=== PATIENT | male | born 1965 | race Caucasian/White ===

== ENCOUNTER 2019-11-02 14:33 | Inpatient (IN) | payer BC ==
[2019-11-02] MEDS ORDERED: Ondansetron 4 MG/2 ML SDV IVPUSH ONE (15:17)
[2019-11-02] MEDS ORDERED: Sodium Chloride 0.9% 10 ML Syringe FLUSH PRN (15:17)
--- NOTE | 2019-11-02 15:29 | EDM.PDOC ---
ED HPI GENERAL MEDICAL PROBLEM - General Chief Complaint: Drug or Alcohol Abuse Stated Complaint: ALCOHOLIC ISSUES Time Seen by Provider: 11/02/19 14:37 Source of Information: Reports: Patient, Family History Limitations: Reports: No Limitations - History of Present Illness INITIAL COMMENTS - FREE TEXT/NARRATIVE: Patient is a 54-year-old male who presents to the emergency department with his with some altered mental status and staggering gait. states this began yesterday. reports patient has a history of alcohol abuse, however she is unsure the extent of it as he hides his drinking. She is found empty 1.25 L bottles of vodka on numerous occasions. She knows with certainty that he drinks Thursday and Thursday. She states that this has been Becoming a worsening problem since April. states he has not gone to work all week, and this is happened on a number of other occasions. He currently works for [employer].. In June he went through an episode where he quit drinking and did have withdrawal symptoms including shaking and diaphoresis. states that her and her daughters have been trying to keep a close eye on him. She states that she "rigged the laundry room" because he uses that door to go out to the garage and she thinks that is probably where he has been drinking. She states he has hiding spots for his alcohol but she does not know where there are. She states that he does not want his mom to find out about his drinking because his dad of alcoholism his grandfather was also a chronic alcoholic. History from the patient is somewhat limited. He was asked if he would like his to leave the room while we visited which he stated he did, however after she left the room, he did not provide much information. When asked how often he drinks he says "I do not know ". He tells me his last drink was Thursday night, however his states that he did drink on Thursday also. When asked if he needs help with his drinking he says no. When asked how he is feeling today he states "horrible ". He does not offer any input as to what he means by that. When asked if he has a headache he says yes he also agrees that he is nauseous. He does not feel confused, denies any visual disturbances, denies auditory hallucinations. When asked if he knows what the day of the week is, he states yes, however he is unable to provide the day of the week. He did agree to have a work-up done. - Related Data Allergies Allergy/AdvReac Type Severity Reaction Status Date / Time No Known Allergies Allergy Verified 11/02/19 14:51 Home Meds: Home Meds Hydrochlorothiazide/Lisinopril [Lisinopril/HCTZ 20-12.5 MG] 1 tab PO DAILY 11/02/19 [History] Metoprolol Succinate [Toprol XL 50mg] 50 mg PO DAILY 11/02/19 [History] Omeprazole 1 tab PO DAILY 11/02/19 [History] Sertraline [Zoloft] 50 mg PO DAILY 11/02/19 [History] Simvastatin 40 mg PO DAILY 11/02/19 [History] Past Medical History HEENT History: Reports: Impaired Vision Cardiovascular History: Reports: High Cholesterol, Hypertension Psychiatric History: Reports: Addiction, Depression - Past Surgical History GI Surgical History: Reports: Appendectomy ED ROS GENERAL - Review of Systems Review Of Systems: See Below Constitutional: Reports: No Symptoms. Denies: Fever, Chills HEENT: Reports: No Symptoms Respiratory: Reports: No Symptoms. Denies: Shortness of Breath, Cough Cardiovascular: Reports: No Symptoms. Denies: Chest Pain, Syncope Endocrine: Reports: No Symptoms GI/Abdominal: Reports: Nausea. Denies: Abdominal Pain, Diarrhea, Vomiting : Reports: No Symptoms Musculoskeletal: Reports: No Symptoms Skin: Reports: No Symptoms Neurological: Reports: Confusion, Headache, Gait Disturbance. Denies: Dizziness Psychiatric: Reports: Confusion, Depression. Denies: Agitation, Hallucinations, Suicidal Ideation Hematologic/Lymphatic: Reports: No Symptoms Immunologic: Reports: No Symptoms - Physical Exam Exam: See Below Exam Limited By: No Limitations General Appearance: Alert, WD/WN, No Apparent Distress Eye Exam: Bilateral Eye: PERRL Respiratory/Chest: No Respiratory Distress, Lungs Clear, Normal Breath Sounds, No Accessory Muscle Use, Chest Non-Tender Cardiovascular: Normal Peripheral Pulses, Regular Rate, Rhythm, No Edema, No Gallop, No JVD, No Murmur, No Rub GI/Abdominal: Normal Bowel Sounds, Soft, Non-Tender, No Organomegaly, No Distention, No Abnormal Bruit, No Mass Neuro Exam (Abbreviated): Alert, CN II-XII Intact, Normal Cognition, Normal Gait, Normal Reflexes, No Motor/Sensory Deficits, Confused, Disoriented (To time) Psychiatric: Flat Affect Skin Exam: Warm, Dry, Intact, Normal Color, No Rash EKG INTERPRETATION EKG Date: 11/02/19 Time: 15:37 Rhythm: NSR Rate (Beats/Min): 76 Diagonal: LAD-Left Diagonal Deviation P-Wave: Present QRS: Normal ST-T: Normal QT: Normal EKG Interpretation Comments: Sinus rhythm at 76/min Left axis deviation Early R wave transition -consider right ventricular hypertrophy/septal hypertrophy Q waves in lead III and aVF-old inferior wall RI EKG interpreted by Dr. Julieth MAY Course - Vital Signs Last Recorded V/S: Last Vital Signs Temp 98.5 F 11/02/19 18:50 Pulse 79 11/02/19 14:45 Resp 20 11/02/19 18:50 BP 156/81 H 11/02/19 18:50 Pulse Ox 97 11/02/19 18:50 - Orders/Labs/Meds Orders: Active Orders 24 hr Category Date Time Status Sodium Chloride 0.9% [Normal Saline] 1,000 ml Med 11/02/19 15:30 Active IV ASDIRECTED Sodium Chloride 0.9% [Normal Saline] 1,000 ml Med 11/02/19 16:30 Active IV ASDIRECTED Sodium Chloride 0.9% [Saline Flush] Med 11/02/19 15:17 Active 10 ml FLUSH ASDIRECTED PRN Peripheral IV Insertion Adult [OM.PC] Stat Oth 11/02/19 15:16 Ordered Medication Orders Albuterol/Ipratropium (Duoneb 3.0-0.5 Mg/3 Ml) 3 ml NEB Q4H PRN PRN Reason: Shortness Of Breath/wheezing Bisacodyl (Dulcolax) 5 mg PO DAILY PRN PRN Reason: Constipation Clonidine HCl (Catapres) 0.1 mg PO Q4H PRN PRN Reason: Agitation Docusate Sodium (Colace) 100 mg PO BID PRN PRN Reason: Constipation Folic Acid (Folic Acid) 1 mg PO BEDTIME [facility] Last Admin: 11/02/19 20:21 Dose: 1 mg Documented by: [id number] Haloperidol Lactate (Haldol) 2 mg IM Q4H PRN PRN Reason: Agitation Sodium Chloride (Normal Saline) 1,000 mls @ 999 mls/hr IV ASDIRECTED [facility] Last Admin: 11/02/19 15:29 Dose: 999 mls/hr Documented by: HERMMIC Sodium Chloride (Normal Saline) 1,000 mls @ 999 mls/hr IV ASDIRECTED [facility] Last Admin: 11/02/19 17:29 Dose: 999 mls/hr Documented by: HERMMIC Promethazine HCl 12.5 mg/ (Sodium Chloride) 50.5 mls @ 100 mls/hr IV Q6H PRN PRN Reason: Nausea/Vomiting Last Admin: 11/02/19 20:30 Dose: 100 mls/hr Documented by: DWAIN Metoprolol Succinate (Toprol Xl) 50 mg PO DAILY [facility] Metoprolol Tartrate (Lopressor) 5 mg IVPUSH Q4H PRN PRN Reason: Tachycardia Multivitamins (Thera) 1 each PO BEDTIME [facility] Last Admin: 11/02/19 20:21 Dose: 1 each Documented by: DWAIN Ondansetron HCl (Zofran) 4 mg IV Q6H PRN PRN Reason: Nausea/Vomiting Pantoprazole Sodium (Protonix) 40 mg PO DAILY [facility] Quetiapine Fumarate (Seroquel) 50 mg PO BEDTIME [facility] Last Admin: 11/02/19 20:21 Dose: 50 mg Documented by: DWAIN Senna/Docusate Sodium (Senna Plus) 1 tab PO BID PRN PRN Reason: Constipation Sodium Chloride (Saline Flush) 10 ml FLUSH ASDIRECTED PRN PRN Reason: Keep Vein Open Last Admin: 11/02/19 15:31 Dose: 10 ml Documented by: LAVERNE Thiamine HCl (Vitamin B-1) 100 mg PO BEDTIME [facility] Last Admin: 11/02/19 20:21 Dose: 100 mg Documented by: DWAIN Topiramate (Topamax) 25 mg PO BID [facility] Last Admin: 11/02/19 20:21 Dose: 25 mg Documented by: DWAIN Labs: Laboratory Tests 11/02/19 11/02/19 11/02/19 Range/Units 14:40 14:48 14:48 WBC 11.80 H (4.23-9.07) K/mm3 RBC 5.76 (4.63-6.08) M/mm3 Hgb 16.2 (13.7-17.5) gm/dl Hct 47.0 (40.1-51.0) % MCV 81.6 (79.0-92.2) fl MCH 28.1 (25.7-32.2) pg MCHC 34.5 (32.2-35.5) g/dl RDW Std Deviation 41.0 (35.1-43.9) fL Plt Count 493 H (163-337) K/mm3 MPV 8.1 L (9.4-12.3) fl Neut % (Auto) 78.6 H (34.0-67.9) % Lymph % (Auto) 17.0 L (21.8-53.1) % [place] % (Auto) 4.1 L (5.3-12.2) % Eos % (Auto) 0 L (0.8-7.0) Baso % (Auto) 0.1 (0.1-1.2) % Neut # (Auto) 9.28 H (1.78-5.38) K/mm3 Lymph # (Auto) 2.01 (1.32-3.57) K/mm3 [place] # (Auto) 0.48 (0.30-0.82) K/mm3 Eos # (Auto) 0.00 L (0.04-0.54) K/mm3 Baso # (Auto) 0.01 (0.01-0.08) K/mm3 Sodium 133 L (136-145) mEq/L Potassium 4.2 (3.5-5.1) mEq/L Chloride 98 (98-107) mEq/L Carbon Dioxide 19 L (21-32) mEq/L Anion Gap 20.2 H (5-15) BUN 49 H (7-18) mg/dL Creatinine 2.6 H (0.7-1.3) mg/dL Est Cr Clr Drug Dosing 31.42 mL/min Estimated GFR (MDRD) 26 (>60) mL/min BUN/Creatinine Ratio 18.8 H (14-18) Glucose 172 H (74-106) mg/dL Calcium 8.8 (8.5-10.1) mg/dL Magnesium 2.4 (1.8-2.4) mg/dl Total Bilirubin 0.6 (0.2-1.0) mg/dL AST 48 H (15-37) U/L ALT 77 H (16-63) U/L Alkaline Phosphatase 98 (46-116) U/L Creatine Kinase (39-308) U/L Troponin I < 0.017 (0.00-0.056) ng/mL C-Reactive Protein < 0.2 (<1.0) mg/dL Total Protein 8.4 H (6.4-8.2) g/dl Albumin 4.1 (3.4-5.0) g/dl Globulin 4.3 gm/dL Albumin/Globulin Ratio 1.0 (1-2) Ethyl Alcohol 0.00 (0.00) gm% COVID-19 ([facility]) (NEGATIVE) 11/02/19 11/02/19 Range/Units 14:48 17:02 WBC (4.23-9.07) K/mm3 RBC (4.63-6.08) M/mm3 Hgb (13.7-17.5) gm/dl Hct (40.1-51.0) % MCV (79.0-92.2) fl MCH (25.7-32.2) pg MCHC (32.2-35.5) g/dl RDW Std Deviation (35.1-43.9) fL Plt Count (163-337) K/mm3 MPV (9.4-12.3) fl Neut % (Auto) (34.0-67.9) % Lymph % (Auto) (21.8-53.1) % [place] % (Auto) (5.3-12.2) % Eos % (Auto) (0.8-7.0) Baso % (Auto) (0.1-1.2) % Neut # (Auto) (1.78-5.38) K/mm3 Lymph # (Auto) (1.32-3.57) K/mm3 [place] # (Auto) (0.30-0.82) K/mm3 Eos # (Auto) (0.04-0.54) K/mm3 Baso # (Auto) (0.01-0.08) K/mm3 Sodium (136-145) mEq/L Potassium (3.5-5.1) mEq/L Chloride (98-107) mEq/L Carbon Dioxide (21-32) mEq/L Anion Gap (5-15) BUN (7-18) mg/dL Creatinine (0.7-1.3) mg/dL Est Cr Clr Drug Dosing mL/min Estimated GFR (MDRD) (>60) mL/min BUN/Creatinine Ratio (14-18) Glucose (74-106) mg/dL Calcium (8.5-10.1) mg/dL Magnesium (1.8-2.4) mg/dl Total Bilirubin (0.2-1.0) mg/dL AST (15-37) U/L ALT (16-63) U/L Alkaline Phosphatase (46-116) U/L Creatine Kinase 229 (39-308) U/L Troponin I (0.00-0.056) ng/mL C-Reactive Protein (<1.0) mg/dL Total Protein (6.4-8.2) g/dl Albumin (3.4-5.0) g/dl Globulin gm/dL Albumin/Globulin Ratio (1-2) Ethyl Alcohol (0.00) gm% COVID-19 ([facility]) Negative (NEGATIVE) Meds: Medications Generic Name Dose Route Start Last Admin Trade Name Freq PRN Reason Stop Dose Admin Albuterol/Ipratropium 3 ml 11/02/19 18:50 Duoneb 3.0-0.5 Mg/3 Ml NEB Q4H PRN Shortness Of Breath/wheezing Bisacodyl 5 mg 11/02/19 18:50 Dulcolax PO DAILY PRN Constipation Clonidine HCl 0.1 mg 11/02/19 19:02 Catapres PO Q4H PRN Agitation Docusate Sodium 100 mg 11/02/19 18:50 Colace PO BID PRN Constipation Folic Acid 1 mg 11/02/19 21:00 11/02/19 20:21 Folic Acid PO 1 mg BEDTIME FELICITA Administration Haloperidol Lactate 2 mg 11/02/19 19:02 Haldol IM Q4H PRN Agitation Sodium Chloride 1,000 mls @ 999 mls/hr 11/02/19 15:30 11/02/19 15:29 Normal Saline IV 999 mls/hr ASDIRECTED FELICITA Administration Sodium Chloride 1,000 mls @ 999 mls/hr 11/02/19 16:30 11/02/19 17:29 Normal Saline IV 999 mls/hr ASDIRECTED FELICITA Administration Promethazine HCl 12.5 mg/ 50.5 mls @ 100 mls/hr 11/02/19 18:50 11/02/19 20:30 Sodium Chloride IV 100 mls/hr Q6H PRN Administration Nausea/Vomiting Metoprolol Succinate 50 mg 11/03/19 09:00 Toprol Xl PO DAILY FELIC[facility] Metoprolol Tartrate 5 mg 11/02/19 19:03 Lopressor IVPUSH Q4H PRN Tachycardia Multivitamins 1 each 11/02/19 21:00 11/02/19 20:21 Thera PO 1 each BEDTIME [facility] Administration Ondansetron HCl 4 mg 11/02/19 18:50 Zofran IV Q6H PRN Nausea/Vomiting Pantoprazole Sodium 40 mg 11/03/19 09:00 Protonix PO DAILY F[facility] Quetiapine Fumarate 50 mg 11/02/19 21:00 11/02/19 20:21 Seroquel PO 50 mg BEDTIME [facility] Administration Senna/Docusate Sodium 1 tab 11/02/19 18:50 Senna Plus PO BID PRN Constipation Sodium Chloride 10 ml 11/02/19 15:17 11/02/19 15:31 Saline Flush FLUSH 10 ml ASDIRECTED PRN Administration Keep Vein Open Thiamine HCl 100 mg 11/02/19 21:00 11/02/19 20:21 Vitamin B-1 PO 100 mg BEDTIME F[facility]IC[facility] Administration Topiramate 25 mg 11/02/19 21:00 11/02/19 20:21 Topamax PO 25 mg BID FELIC[facility] Administration Discontinued Medications Generic Name Dose Route Start Last Admin Trade Name Freq PRN Reason Stop Dose Admin Diphenhydramine HCl 25 mg 11/02/19 19:01 11/02/19 20:22 Benadryl IVPUSH 11/02/19 19:02 25 mg ONETIME ONE Administration Ondansetron HCl 4 mg 11/02/19 15:17 11/02/19 15:29 Zofran IVPUSH 11/02/19 15:18 4 mg ONETIME ONE Administration - Re-Assessments/Exams Free Text/Narrative Re-Assessment/Exam: Patient is a 54-year-old male brought in by his with complaints of altered mental status and unsteady gait. Patient does not offer much information, and is unsure of how much he drinks as he hides his drinking. He could be suffering from alcohol withdrawal, however it is difficult to determine this based on his uncertain history of alcohol abuse. Neurologic exam is essentially normal, with the exception of his confusion. Grasps are equal and strong. Pupils are equal and reactive. I have ordered a CBC, CMP, CRP, troponin, EKG, EtOH, urinalysis, drug screen, and CT scan of the head. We will give him a liter of IV fluids, as well as Zofran for nausea. 11/02/19 16:11 Hematology was significant for WBC slightly elevated 11.8, platelets elevated at 493, sodium slightly low at 133, CO2 low at 19, anion gap elevated at 20.2, BUN elevated 49, creatinine elevated at 2.6, glucose elevated at 172, troponin is negative, CRP is normal, blood alcohol is 0, CT scan of the head was negative for any acute findings. Based on patient's new onset confusion and difficulty with gait, we could be dealing with alcohol withdrawal, however I have ordered an MRI of the brain to rule out stroke. Discussed this with the patient and his and they are in agreement with this plan. I will order a second liter of NS bolus as he is quite dry. Urinalysis and drug screen pending. 11/02/19 17:51 MRI results were negative for any acute abnormalities. Patient has yet to produce a urine sample. I did call and speak with the hospitalist on-call, Dr. Reaves. He has accepted the patient for admission to the ICU for confusion and acute renal failure. Departure - Departure Time of Disposition: 17:51 Disposition: Admitted As Inpatient 66 Condition: Good Clinical Impression: Altered mental state Qualifiers: Altered mental status type: disorientation Qualified Code(s): R41.0 - Disorientation, unspecified Acute renal failure (ARF) Qualifiers: Acute renal failure type: unspecified Qualified Code(s): N17.9 - Acute kidney failure, unspecified - Discharge Information Sepsis Event Note (ED) - Evaluation Sepsis Screening Result: No Definite Risk - Focused Exam Vital Signs: Vital Signs Temp Pulse Resp BP Pulse Ox 11/02/19 14:45 96.0 F L 79 16 121/82 94 L - My Orders Last 24 Hours: My Active Orders 11/02/19 15:16 Peripheral IV Insertion Adult [OM.PC] Stat 11/02/19 15:17 Sodium Chloride 0.9% [Saline Flush] 10 ml FLUSH ASDIRECTED PRN 11/02/19 15:30 Sodium Chloride 0.9% [Normal Saline] 1,000 ml IV ASDIRECTED 11/02/19 16:30 Sodium Chloride 0.9% [Normal Saline] 1,000 ml IV ASDIRECTED - Assessment/Plan Last 24 Hours: My Active Orders 11/02/19 15:16 Peripheral IV Insertion Adult [OM.PC] Stat 11/02/19 15:17 Sodium Chloride 0.9% [Saline Flush] 10 ml FLUSH ASDIRECTED PRN 11/02/19 15:30 Sodium Chloride 0.9% [Normal Saline] 1,000 ml IV ASDIRECTED 11/02/19 16:30 Sodium Chloride 0.9% [Normal Saline] 1,000 ml IV ASDIRECTED
[2019-11-02] MEDS ORDERED: Sodium Chloride 0.9% 1,000 ML IV SCH ×2 (15:30→16:30)
--- NOTE | 2019-11-02 15:47 | CT ---
Head CT Technique: Multiple axial sections through the brain were obtained. Intravenous contrast was not utilized. Comparison: No prior intracranial imaging is available. Findings: Ventricles along with basal cisterns and sulci over the convexities are within normal limits for the patient's age. No abnormal parenchymal densities are seen. No evidence of intracranial hemorrhage. No midline shift or mass-effect is seen. Mild atherosclerotic calcification is seen within the carotid siphon and vertebral vessels. Mild mucosal thickening is noted within the sphenoid and ethmoid sinuses. Visualized mastoid sinuses are clear. No acute calvarial abnormality is appreciated. Impression: 1. Mild sinus findings which are most likely chronic. 2. No acute intracranial abnormality is seen. Note: Please correlate if patient's symptoms warrant further evaluation by MRI. Diagnostic code #2 This report was dictated in MDT
--- NOTE | 2019-11-02 17:10 | MR ---
Mri brain Technique: T1 sagittal; T2, T2 FLAIR, T1 and diffusion axial T2 gradient echo axial; T1 and T2 gradient echo coronal images were obtained. Comparison: Prior head CT study of 11/02/19. Findings: Ventricles along with basal cisterns and sulci over the convexities appear within normal limits for the patient's age. Normal signal void is seen within the major cerebral arteries within the skull base. No abnormal signal is seen within the brain parenchyma. No midline shift or mass-effect is seen. No acute diffusion abnormalities are appreciated. Impression: 1. No abnormality is appreciated on MRI study of the brain. There are specifically no acute diffusion abnormalities being seen. Diagnostic code #1 This report was dictated in MDT
--- NOTE | 2019-11-02 17:50 | PCM.HP.2 ---
H&P History of Present Illness - General Date of Service: 11/02/19 Admit Problem/Dx: ETOH Withdrawal Source of Information: Family, Provider, RN Notes Reviewed History Limitations: Reports: Altered Mental Status - History of Present Illness Initial Comments - Free Text/Narative: This is a 54 yo white male with past medical hx/o chronic alcoholism, hypertension, hyperlipidemia, GERD, and depression who was brought in by his due to acute confusion with withdrawal symptoms. His last drink was appar ently last night but according to him it was this past Thursday. He was not very forthcoming with his alcohol abuse. However his thinks he drinks heavily about 1.25 L of vodka a day and hides his drinking from family. His believes his drinking has gotten out of hand since April. He has had etoh withdrawal in the past. Per family, he was tremulous and sweating. This morning he was alert, awake, but confused. He was able to answer yes or no but cannot offer a meaning conversation. No report of visual, tactile or auditory hallucinations. His initial work up in the emergency shows a CBC remarkable for WBC of 11.80, platelet # of 493, Neutrophils of 78.6%, Lymphocyte # of 147% and Monocytes # of 4.1%. His chemistry is significant for sodium of 133, CO2 of 19, AG of 20.2, BUN of 49, Cr of 2.6, BS of 172, AST of 48, ALT of 77 and Total Protein of 8.4. His ETOH and COVID-19 screening are negative. Brain MRI and Head CT scan reports are both negative for acute abnormal findings. Patient is coming in primarily for etoh withdrawal. - Related Data Allergies/Adverse Reactions: Allergies Allergy/AdvReac Type Severity Reaction Status Date / Time No Known Allergies Allergy Verified 11/02/19 23:41 Home Medications: Home Meds Hydrochlorothiazide/Lisinopril [Lisinopril/HCTZ 20-12.5 MG] 1 tab PO DAILY 11/02/19 [History] Metoprolol Succinate [Toprol XL 50mg] 50 mg PO DAILY 11/02/19 [History] Omeprazole 1 tab PO DAILY 11/02/19 [History] Sertraline [Zoloft] 50 mg PO DAILY 11/02/19 [History] Simvastatin 40 mg PO DAILY 11/02/19 [History] Past Medical History HEENT History: Reports: Impaired Vision Cardiovascular History: Reports: High Cholesterol, Hypertension Psychiatric History: Reports: Addiction, Depression - Past Surgical History GI Surgical History: Reports: Appendectomy Social & Family History - Tobacco Use Smoking Status *Q: Never Smoker - Caffeine Use Caffeine Use: Reports: Coffee - Recreational Drug Use Recreational Drug Use: No H&P Review of Systems - Review of Systems: Review Of Systems: See Below General: Denies: Fever, Chills HEENT: Reports: Headaches Pulmonary: Denies: Shortness of Breath, Pleuritic Chest Pain Cardiovascular: Denies: Chest Pain, Palpitations, Dyspnea on Exertion Gastrointestinal: Reports: Nausea. Denies: Abdominal Pain, Constipation, Vomiting Genitourinary: Reports: No Symptoms Musculoskeletal: Reports: No Symptoms Skin: Denies: Diaphoresis, Bruising, Rash Psychiatric: Reports: Confusion. Denies: Anxiety, Agitation, Cravings, Hallucinations, Suicidal Ideation, Homicidal Ideation Neurological: Reports: Gait Disturbance. Denies: Dizziness, Numbness, Paresthesia, Seizure, Syncope, Tingling, Tremors, Trouble Speaking, Weakness, Change in Speech Hematologic/Lymphatic: Reports: No Symptoms Immunologic: Reports: No Symptoms Exam - Exam Exam: See Below - Vital Signs Vital Signs: Last Vital Signs Temp 35.6 C L 11/02/19 14:45 Pulse 79 11/02/19 14:45 Resp 16 11/02/19 14:45 BP 121/82 11/02/19 14:45 Pulse Ox 94 L 11/02/19 14:45 Weight: 95.254 kg - Exam General: Cooperative. No: Moderate Distress HEENT: Conjunctiva Clear, EACs Clear Neck: Supple, Trachea Midline Lungs: Clear to Auscultation, Normal Respiratory Effort Cardiovascular: Regular Rate, Regular Rhythm GI/Abdominal Exam: Normal Bowel Sounds, Soft, Non-Tender, No Organomegaly, No Distention, No Abnormal Bruit (Male) Exam: Deferred Rectal (Males) Exam: Deferred Back Exam: Normal Inspection, Decreased Range of Motion Extremities: Normal Inspection, Normal Range of Motion, Non-Tender, No Pedal Edema, Other (unstable gait) Peripheral Pulses: 1+: Dorsalis Pedis (L), Dorsalis Pedis (R) Skin: Warm, Dry, Intact Neurological: Abnormal Gait Neuro Extensive - Mental Status: Normal Mood/Affect, Opens Eyes to Commands, Slow Response to Commands, Other (able to answer yes or no; he is not able to offer a meaningful conversation). No: Normal Cognition Neuro Extensive - Motor, Sensory, Reflexes: Other (Confused at the present). No: Tremor Psychiatric: No: Anxious, Agitated, Suicidal Ideation, Homicidal Ideation, Hallucinations, Withdrawal Symptoms - Patient Data Lab Results Last 24 hrs: Laboratory Results - last 24 hr 11/02/19 11/02/19 11/02/19 Range/Units 14:48 14:48 14:48 WBC 11.80 H (4.23-9.07) K/mm3 RBC 5.76 (4.63-6.08) M/mm3 Hgb 16.2 (13.7-17.5) gm/dl Hct 47.0 (40.1-51.0) % MCV 81.6 (79.0-92.2) fl MCH 28.1 (25.7-32.2) pg MCHC 34.5 (32.2-35.5) g/dl RDW Std Deviation 41.0 (35.1-43.9) fL Plt Count 493 H (163-337) K/mm3 MPV 8.1 L (9.4-12.3) fl Neut % (Auto) 78.6 H (34.0-67.9) % Lymph % (Auto) 17.0 L (21.8-53.1) % [place] % (Auto) 4.1 L (5.3-12.2) % Eos % (Auto) 0 L (0.8-7.0) Baso % (Auto) 0.1 (0.1-1.2) % Neut # (Auto) 9.28 H (1.78-5.38) K/mm3 Lymph # (Auto) 2.01 (1.32-3.57) K/mm3 [place] # (Auto) 0.48 (0.30-0.82) K/mm3 Eos # (Auto) 0.00 L (0.04-0.54) K/mm3 Baso # (Auto) 0.01 (0.01-0.08) K/mm3 Sodium 133 L (136-145) mEq/L Potassium 4.2 (3.5-5.1) mEq/L Chloride 98 (98-107) mEq/L Carbon Dioxide 19 L (21-32) mEq/L Anion Gap 20.2 H (5-15) BUN 49 H (7-18) mg/dL Creatinine 2.6 H (0.7-1.3) mg/dL Est Cr Clr Drug Dosing 31.42 mL/min Estimated GFR (MDRD) 26 (>60) mL/min BUN/Creatinine Ratio 18.8 H (14-18) Glucose 172 H (74-106) mg/dL Calcium 8.8 (8.5-10.1) mg/dL Total Bilirubin 0.6 (0.2-1.0) mg/dL AST 48 H (15-37) U/L ALT 77 H (16-63) U/L Alkaline Phosphatase 98 (46-116) U/L Creatine Kinase 229 (39-308) U/L Troponin I < 0.017 (0.00-0.056) ng/mL C-Reactive Protein < 0.2 (<1.0) mg/dL Total Protein 8.4 H (6.4-8.2) g/dl Albumin 4.1 (3.4-5.0) g/dl Globulin 4.3 gm/dL Albumin/Globulin Ratio 1.0 (1-2) Ethyl Alcohol 0.00 (0.00) gm% COVID-19 ([facility]) (NEGATIVE) 11/02/19 Range/Units 17:02 WBC (4.23-9.07) K/mm3 RBC (4.63-6.08) M/mm3 Hgb (13.7-17.5) gm/dl Hct (40.1-51.0) % MCV (79.0-92.2) fl MCH (25.7-32.2) pg MCHC (32.2-35.5) g/dl RDW Std Deviation (35.1-43.9) fL Plt Count (163-337) K/mm3 MPV (9.4-12.3) fl Neut % (Auto) (34.0-67.9) % Lymph % (Auto) (21.8-53.1) % [place] % (Auto) (5.3-12.2) % Eos % (Auto) (0.8-7.0) Baso % (Auto) (0.1-1.2) % Neut # (Auto) (1.78-5.38) K/mm3 Lymph # (Auto) (1.32-3.57) K/mm3 [place] # (Auto) (0.30-0.82) K/mm3 Eos # (Auto) (0.04-0.54) K/mm3 Baso # (Auto) (0.01-0.08) K/mm3 Sodium (136-145) mEq/L Potassium (3.5-5.1) mEq/L Chloride (98-107) mEq/L Carbon Dioxide (21-32) mEq/L Anion Gap (5-15) BUN (7-18) mg/dL Creatinine (0.7-1.3) mg/dL Est Cr Clr Drug Dosing mL/min Estimated GFR (MDRD) (>60) mL/min BUN/Creatinine Ratio (14-18) Glucose (74-106) mg/dL Calcium (8.5-10.1) mg/dL Total Bilirubin (0.2-1.0) mg/dL AST (15-37) U/L ALT (16-63) U/L Alkaline Phosphatase (46-116) U/L Creatine Kinase (39-308) U/L Troponin I (0.00-0.056) ng/mL C-Reactive Protein (<1.0) mg/dL Total Protein (6.4-8.2) g/dl Albumin (3.4-5.0) g/dl Globulin gm/dL Albumin/Globulin Ratio (1-2) Ethyl Alcohol (0.00) gm% COVID-19 ([facility]) Negative (NEGATIVE) Result Diagrams: 11/03/19 05:28 11/03/19 05:28 Sepsis Event Note - Evaluation Sepsis Screening Result: No Definite Risk - Focused Exam Vital Signs: Vital Signs Temp Pulse Resp BP Pulse Ox 11/02/19 14:45 35.6 C L 79 16 121/82 94 L Date Exam was Performed: 11/03/19 Time Exam was Performed: 11:13 Problem List Initiated/Reviewed/Updated: Yes Orders Last 24hrs: Active Orders 24 hr Category Date Time Status EKG Documentation Completion [RC] STAT Care 11/02/19 15:16 Active Peripheral IV Care [RC] . DIRECTED Care 11/02/19 15:17 Active DRUG SCREEN, URINE [URCHEM] Stat Lab 11/02/19 15:17 Ordered UA RFX BRITNEY AND CULT IF INDIC [URIN] Stat Lab 11/02/19 15:16 Ordered Sodium Chloride 0.9% [Normal Saline] 1,000 ml Med 11/02/19 15:30 Active IV ASDIRECTED Sodium Chloride 0.9% [Normal Saline] 1,000 ml Med 11/02/19 16:30 Active IV ASDIRECTED Sodium Chloride 0.9% [Saline Flush] Med 11/02/19 15:17 Active 10 ml FLUSH ASDIRECTED PRN Peripheral IV Insertion Adult [OM.PC] Stat Oth 11/02/19 15:16 Ordered Medication Orders Sodium Chloride (Normal Saline) 1,000 mls @ 999 mls/hr IV ASDIRECTED FELICITA Last Admin: 11/02/19 15:29 Dose: 999 mls/hr Documented by: HERMMIC Sodium Chloride (Normal Saline) 1,000 mls @ 999 mls/hr IV ASDIRECTED FELICITA Last Admin: 11/02/19 17:29 Dose: 999 mls/hr Documented by: HERMMIC Sodium Chloride (Saline Flush) 10 ml FLUSH ASDIRECTED PRN PRN Reason: Keep Vein Open Last Admin: 11/02/19 15:31 Dose: 10 ml Documented by: LAVERNE Assessment/Plan Comment:: This is a 54 yo white male with past medical hx/o chronic alcoholism, hypertension, hyperlipidemia, GERD, and depression who was brought in by his due to acute confusion with withdrawal symptoms. Assessment: Acute: * ETOH Abuse/Withdrawal Symptoms. He carries a hx/o chronic alcoholism. He is not very forth coming and it appears he hides his drinking from his family. he drinks hard liquor. His found 1.25L of Vodka. Per family, his drinking has gotten out of hand since April. * Acute confusion 2/2 metabolic/toxic encephalopathy. Has abnormal e-lytes and UA/UDS pending. Head CT scan and Brain MRI done in ED are both negative for acute abnormal findings. This could be mainly to alcohol abuse. We will monitor. * Acute kidney injury vs CKD. This is likely 2/2 volume depletion and dehydration from etoh abuse. No previous level for comparison. He comes in with a CR of 2.6 with a BUN of 49. So far he has received 2L of NS in ED. Plan: e-lytes studies, avoid nephrotoxic agents, monitor Is/Os, renal US to r/o obstructive uropathy and repeat renal panel in AM. * Hypovolemia Hyperosmolar Hyponatremia. This is likely due to etoh abuse and not able to eat of drink adequately. He is volume depleted. he comes in with a NA level of 133. Although this could be affected by his HCTZ and Zoloft he takes for maintenance medications. We will hold HCTZ for now and monitor lev els. * Increased AG Metabolic Acidosis. This is 2/2 ETOh Abuse. he is afebrile and no signs of systemic infection. Expect to improve with hydration. * Hyperglycemia. He comes to us with BS level of 172. He carries no hx/o glucose intolerance or diabetes. We will monitor. * Transaminitis. He comes to us with AST and ALT levels of respectively. This is likely due to etoh abuse.He is on statin so we will hold if for now until his liver enzymes improve. * Mild Leukocytosis. This is likely due to stress. He is afebrile w/o signs of systemic infection. We will monitor. * Mild Thrombocytopenia. He comes in with an elevated platelet level of 493. This is due to chronic alcohol use. Chronic: * HTN * HLD * GERD * Depression * Chronic Alcoholism Plan: Admit to ICU. ETOH Withdrawal orders. CIWAA protocol. Thiamine, folic acid and MVI. IV fluid for hydration. Renal U/S in AM. Avoid neprhotxic agents. Regular diet. Tele-psych consult with Dr. Bagley. SANDEE/CM for discharge planning. - Mortality Measure Prognosis:: Good
[2019-11-02] MEDS ORDERED: Albuterol/Ipratropium 3.0-0.5 MG/3 ML Neb Soln NEB PRN (18:50)
[2019-11-02] MEDS ORDERED: Bisacodyl 5 MG Tab PO PRN (18:50)
[2019-11-02] MEDS ORDERED: Ondansetron 4 MG/2 ML SDV IV PRN (18:50)
[2019-11-02] MEDS ORDERED: Promethazine 12.5 MG in Sodium Chloride 0.9% 50 ML IV PRN (18:50)
[2019-11-02] MEDS ORDERED: diphenhydrAMINE 50 MG/ML SDV IVPUSH ONE (19:01)
[2019-11-02] MEDS ORDERED: Haloperidol Lactate 5 MG/ML SDV IM PRN (19:02)
[2019-11-02] MEDS ORDERED: Metoprolol Tartrate 5 MG/5 ML SDV IVPUSH PRN (19:03)
[2019-11-02] MEDS: Topiramate 25 MG Tab PO SCH (20:21)
[2019-11-02] MEDS: Folic Acid 1 MG Tab PO SCH (20:21)
[2019-11-02] MEDS: Thiamine 100 MG Tab PO SCH (20:21)
[2019-11-02] MEDS: QUEtiapine 25 MG Tab PO SCH (20:21)
[2019-11-02] MEDS: Multivitamins,Therapeutic Tab PO SCH (20:21)
[2019-11-02] MEDS ORDERED: chlordiazePOXIDE 25 MG Cap PO ONE (20:53)
[2019-11-02] MEDS ORDERED: LORazepam 2 MG/ML SDV IVPUSH PRN ×2 (20:55→21:31)
[2019-11-02] MEDS: LORazepam 2 MG/ML SDV IVPUSH PRN ×2 (22:10→23:23)
[2019-11-02] MEDS: chlordiazePOXIDE 25 MG Cap PO SCH ×2 (22:10→22:15)
[2019-11-02] MEDS ORDERED: Dextrose 5%-0.45% NaCl 1,000 ML IV SCH (22:45)
[2019-11-03] MEDS: LORazepam 2 MG/ML SDV IVPUSH PRN ×11 (00:25→20:11)
[2019-11-03] MEDS ORDERED: chlordiazePOXIDE 25 MG Cap PO PRN (01:00)
[2019-11-03] MEDS: chlordiazePOXIDE 25 MG Cap PO SCH ×2 (02:21→02:31)
--- NOTE | 2019-11-03 07:01 | PCM.PN ---
- General Info Date of Service: 11/03/19 Admission Dx/Problem (Free Text): ETOH Withdrawal Subjective Update: 11/03/19: Patient detoxed hard last night. He was getting ativan round the clock starting at 11 pm. He is comfortably resting this morning. His CIWAA is bet 7- 10.n His UA and UDS were negative. Functional Status: Reports: Pain Controlled - Review of Systems General: Denies: Fever, Chills Pulmonary: Denies: Shortness of Breath Gastrointestinal: Denies: Abdominal Pain, Nausea, Vomiting Genitourinary: Denies: No Symptoms Musculoskeletal: Reports: No Symptoms Skin: Denies: Cyanosis, Diaphoresis Neurological: Reports: Tremors, Gait Disturbance. Denies: Seizure Psychiatric: Reports: Confusion, Anxiety. Denies: Hallucinations, Homicidal Ideation Systems Review Comment:: ROS is limited, patient is heavily sedated but arousable. - Patient Data Vitals - Most Recent: Last Vital Signs Temp 36.3 C 11/03/19 04:00 Pulse 79 11/02/19 14:45 Resp 20 11/03/19 04:00 BP 123/73 11/03/19 04:00 Pulse Ox 94 L 11/03/19 04:00 Weight - Most Recent: 101.242 kg I&O - Last 24 Hours: Intake & Output 11/02/19 11/03/19 11/03/19 22:59 06:59 14:59 Intake Total 471 Output Total 525 Balance -525 471 Lab Results Last 24 Hours: Laboratory Results - last 24 hr 11/02/19 11/02/19 11/02/19 Range/Units 14:40 14:48 14:48 WBC 11.80 H (4.23-9.07) K/mm3 RBC 5.76 (4.63-6.08) M/mm3 Hgb 16.2 (13.7-17.5) gm/dl Hct 47.0 (40.1-51.0) % MCV 81.6 (79.0-92.2) fl MCH 28.1 (25.7-32.2) pg MCHC 34.5 (32.2-35.5) g/dl RDW Std Deviation 41.0 (35.1-43.9) fL Plt Count 493 H (163-337) K/mm3 MPV 8.1 L (9.4-12.3) fl Neut % (Auto) 78.6 H (34.0-67.9) % Lymph % (Auto) 17.0 L (21.8-53.1) % [place] % (Auto) 4.1 L (5.3-12.2) % Eos % (Auto) 0 L (0.8-7.0) Baso % (Auto) 0.1 (0.1-1.2) % Neut # (Auto) 9.28 H (1.78-5.38) K/mm3 Lymph # (Auto) 2.01 (1.32-3.57) K/mm3 [place] # (Auto) 0.48 (0.30-0.82) K/mm3 Eos # (Auto) 0.00 L (0.04-0.54) K/mm3 Baso # (Auto) 0.01 (0.01-0.08) K/mm3 Sodium 133 L (136-145) mEq/L Potassium 4.2 (3.5-5.1) mEq/L Chloride 98 (98-107) mEq/L Carbon Dioxide 19 L (21-32) mEq/L Anion Gap 20.2 H (5-15) BUN 49 H (7-18) mg/dL Creatinine 2.6 H (0.7-1.3) mg/dL Est Cr Clr Drug Dosing 31.42 mL/min Estimated GFR (MDRD) 26 (>60) mL/min BUN/Creatinine Ratio 18.8 H (14-18) Glucose 172 H (74-106) mg/dL Calcium 8.8 (8.5-10.1) mg/dL Magnesium 2.4 (1.8-2.4) mg/dl Total Bilirubin 0.6 (0.2-1.0) mg/dL AST 48 H (15-37) U/L ALT 77 H (16-63) U/L Alkaline Phosphatase 98 (46-116) U/L Creatine Kinase (39-308) U/L Troponin I < 0.017 (0.00-0.056) ng/mL C-Reactive Protein < 0.2 (<1.0) mg/dL Total Protein 8.4 H (6.4-8.2) g/dl Albumin 4.1 (3.4-5.0) g/dl Globulin 4.3 gm/dL Albumin/Globulin Ratio 1.0 (1-2) Urine Color (Yellow) Urine Appearance (Clear) Urine pH (5.0-8.0) Ur Specific [place] (1.005-1.030) Urine Protein (Negative) Urine Glucose (UA) (Negative) Urine Ketones (Negative) Urine Occult Blood (Negative) Urine Nitrite (Negative) Urine Bilirubin (Negative) Urine Urobilinogen (0.2-1.0) Ur Leukocyte Esterase (Negative) Urine Opiates Screen (DXLEGG=745) Ur Buprenorphine Scrn (CUTOFF=10) Ur Oxycodone Screen (PQJ7WK=782) Urine Methadone Screen (AGO1VG=855) Ur Propoxyphene Screen (TAXSFO=255) Ur Barbiturates Screen (QXKIZF=025) Ur Tricyclics Screen (LGYMHA=637) Ur Phencyclidine Scrn (CUTOFF=25) Ur Amphetamine Screen (MYICKE=956) U Methamphetamines Scrn (GAJKFK=108) U Benzodiazepines Scrn (VGUKDA=064) U Cocaine Metab Screen (GGYSQP=178) U Marijuana (THC) Screen (CUTOFF=50) Ethyl Alcohol 0.00 (0.00) gm% COVID-19 (MEKA) (NEGATIVE) 11/02/19 11/02/19 11/02/19 Range/Units 14:48 17:02 18:30 WBC (4.23-9.07) K/mm3 RBC (4.63-6.08) M/mm3 Hgb (13.7-17.5) gm/dl Hct (40.1-51.0) % MCV (79.0-92.2) fl MCH (25.7-32.2) pg MCHC (32.2-35.5) g/dl RDW Std Deviation (35.1-43.9) fL Plt Count (163-337) K/mm3 MPV (9.4-12.3) fl Neut % (Auto) (34.0-67.9) % Lymph % (Auto) (21.8-53.1) % [place] % (Auto) (5.3-12.2) % Eos % (Auto) (0.8-7.0) Baso % (Auto) (0.1-1.2) % Neut # (Auto) (1.78-5.38) K/mm3 Lymph # (Auto) (1.32-3.57) K/mm3 [place] # (Auto) (0.30-0.82) K/mm3 Eos # (Auto) (0.04-0.54) K/mm3 Baso # (Auto) (0.01-0.08) K/mm3 Sodium (136-145) mEq/L Potassium (3.5-5.1) mEq/L Chloride (98-107) mEq/L Carbon Dioxide (21-32) mEq/L Anion Gap (5-15) BUN (7-18) mg/dL Creatinine (0.7-1.3) mg/dL Est Cr Clr Drug Dosing mL/min Estimated GFR (MDRD) (>60) mL/min BUN/Creatinine Ratio (14-18) Glucose (74-106) mg/dL Calcium (8.5-10.1) mg/dL Magnesium (1.8-2.4) mg/dl Total Bilirubin (0.2-1.0) mg/dL AST (15-37) U/L ALT (16-63) U/L Alkaline Phosphatase (46-116) U/L Creatine Kinase 229 (39-308) U/L Troponin I (0.00-0.056) ng/mL C-Reactive Protein (<1.0) mg/dL Total Protein (6.4-8.2) g/dl Albumin (3.4-5.0) g/dl Globulin gm/dL Albumin/Globulin Ratio (1-2) Urine Color Yellow (Yellow) Urine Appearance Clear (Clear) Urine pH 5.0 (5.0-8.0) Ur Specific [place] 1.025 (1.005-1.030) Urine Protein Negative (Negative) Urine Glucose (UA) Negative (Negative) Urine Ketones 1+ H (Negative) Urine Occult Blood Negative (Negative) Urine Nitrite Negative (Negative) Urine Bilirubin Negative (Negative) Urine Urobilinogen 0.2 (0.2-1.0) Ur Leukocyte Esterase Negative (Negative) Urine Opiates Screen (OXXDQW=481) Ur Buprenorphine Scrn (CUTOFF=10) Ur Oxycodone Screen (CRK2YU=371) Urine Methadone Screen (QMD6MH=354) Ur Propoxyphene Screen (DBNAOC=749) Ur Barbiturates Screen (GTREOW=550) Ur Tricyclics Screen (DCBVNJ=264) Ur Phencyclidine Scrn (CUTOFF=25) Ur Amphetamine Screen (XSKXPP=844) U Methamphetamines Scrn (DMNQCB=810) U Benzodiazepines Scrn (KNLRXE=587) U Cocaine Metab Screen (MLNQYQ=576) U Marijuana (THC) Screen (CUTOFF=50) Ethyl Alcohol (0.00) gm% COVID-19 (MEKA) Negative (NEGATIVE) 11/02/19 11/02/19 11/03/19 Range/Units 18:30 21:04 05:28 WBC 11.65 H (4.23-9.07) K/mm3 RBC 5.32 (4.63-6.08) M/mm3 Hgb 14.9 (13.7-17.5) gm/dl Hct 44.7 (40.1-51.0) % MCV 84.0 (79.0-92.2) fl MCH 28.0 (25.7-32.2) pg MCHC 33.3 (32.2-35.5) g/dl RDW Std Deviation 43.1 (35.1-43.9) fL Plt Count 339 H D (163-337) K/mm3 MPV 7.9 L (9.4-12.3) fl Neut % (Auto) 70.1 H (34.0-67.9) % Lymph % (Auto) 22.3 (21.8-53.1) % [place] % (Auto) 7.0 (5.3-12.2) % Eos % (Auto) 0.1 L (0.8-7.0) Baso % (Auto) 0.2 (0.1-1.2) % Neut # (Auto) 8.18 H (1.78-5.38) K/mm3 Lymph # (Auto) 2.60 (1.32-3.57) K/mm3 [place] # (Auto) 0.81 (0.30-0.82) K/mm3 Eos # (Auto) 0.01 L (0.04-0.54) K/mm3 Baso # (Auto) 0.02 (0.01-0.08) K/mm3 Sodium 135 L (136-145) mEq/L Potassium 4.1 (3.5-5.1) mEq/L Chloride 100 (98-107) mEq/L Carbon Dioxide 22 (21-32) mEq/L Anion Gap 17.1 H (5-15) BUN 36 H (7-18) mg/dL Creatinine 2.7 H (0.7-1.3) mg/dL Est Cr Clr Drug Dosing 30.26 mL/min Estimated GFR (MDRD) 25 (>60) mL/min BUN/Creatinine Ratio 13.3 L (14-18) Glucose 123 H (74-106) mg/dL Calcium 8.1 L (8.5-10.1) mg/dL Magnesium (1.8-2.4) mg/dl Total Bilirubin (0.2-1.0) mg/dL AST (15-37) U/L ALT (16-63) U/L Alkaline Phosphatase (46-116) U/L Creatine Kinase (39-308) U/L Troponin I (0.00-0.056) ng/mL C-Reactive Protein (<1.0) mg/dL Total Protein (6.4-8.2) g/dl Albumin (3.4-5.0) g/dl Globulin gm/dL Albumin/Globulin Ratio (1-2) Urine Color (Yellow) Urine Appearance (Clear) Urine pH (5.0-8.0) Ur Specific [place] (1.005-1.030) Urine Protein (Negative) Urine Glucose (UA) (Negative) Urine Ketones (Negative) Urine Occult Blood (Negative) Urine Nitrite (Negative) Urine Bilirubin (Negative) Urine Urobilinogen (0.2-1.0) Ur Leukocyte Esterase (Negative) Urine Opiates Screen Negative (TEJFUP=552) Ur Buprenorphine Scrn Negative (CUTOFF=10) Ur Oxycodone Screen Negative (PDO6TR=343) Urine Methadone Screen Negative (AJI2HX=804) Ur Propoxyphene Screen Negative (UULNQV=366) Ur Barbiturates Screen Negative (NRDQIL=201) Ur Tricyclics Screen Negative (SPTFZJ=537) Ur Phencyclidine Scrn Negative (CUTOFF=25) Ur Amphetamine Screen Negative (XTITKH=755) U Methamphetamines Scrn Negative (DDWWUX=435) U Benzodiazepines Scrn Negative (UXCWZI=600) U Cocaine Metab Screen Negative (KKRJXX=173) U Marijuana (THC) Screen Negative (CUTOFF=50) Ethyl Alcohol (0.00) gm% COVID-19 (MEKA) (NEGATIVE) 11/03/19 Range/Units 05:28 WBC (4.23-9.07) K/mm3 RBC (4.63-6.08) M/mm3 Hgb (13.7-17.5) gm/dl Hct (40.1-51.0) % MCV (79.0-92.2) fl MCH (25.7-32.2) pg MCHC (32.2-35.5) g/dl RDW Std Deviation (35.1-43.9) fL Plt Count (163-337) K/mm3 MPV (9.4-12.3) fl Neut % (Auto) (34.0-67.9) % Lymph % (Auto) (21.8-53.1) % [place] % (Auto) (5.3-12.2) % Eos % (Auto) (0.8-7.0) Baso % (Auto) (0.1-1.2) % Neut # (Auto) (1.78-5.38) K/mm3 Lymph # (Auto) (1.32-3.57) K/mm3 [place] # (Auto) (0.30-0.82) K/mm3 Eos # (Auto) (0.04-0.54) K/mm3 Baso # (Auto) (0.01-0.08) K/mm3 Sodium 138 (136-145) mEq/L Potassium 4.1 (3.5-5.1) mEq/L Chloride 103 (98-107) mEq/L Carbon Dioxide 25 (21-32) mEq/L Anion Gap 14.1 (5-15) BUN 24 H (7-18) mg/dL Creatinine 2.3 H (0.7-1.3) mg/dL Est Cr Clr Drug Dosing 35.52 mL/min Estimated GFR (MDRD) 30 (>60) mL/min BUN/Creatinine Ratio 10.4 L (14-18) Glucose 154 H (74-106) mg/dL Calcium 8.0 L (8.5-10.1) mg/dL Magnesium 2.0 (1.8-2.4) mg/dl Total Bilirubin 0.5 (0.2-1.0) mg/dL AST 42 H (15-37) U/L ALT 62 (16-63) U/L Alkaline Phosphatase 78 (46-116) U/L Creatine Kinase (39-308) U/L Troponin I (0.00-0.056) ng/mL C-Reactive Protein (<1.0) mg/dL Total Protein 7.6 (6.4-8.2) g/dl Albumin 3.5 (3.4-5.0) g/dl Globulin 4.1 gm/dL Albumin/Globulin Ratio 0.9 L (1-2) Urine Color (Yellow) Urine Appearance (Clear) Urine pH (5.0-8.0) Ur Specific [place] (1.005-1.030) Urine Protein (Negative) Urine Glucose (UA) (Negative) Urine Ketones (Negative) Urine Occult Blood (Negative) Urine Nitrite (Negative) Urine Bilirubin (Negative) Urine Urobilinogen (0.2-1.0) Ur Leukocyte Esterase (Negative) Urine Opiates Screen (TTPWVG=236) Ur Buprenorphine Scrn (CUTOFF=10) Ur Oxycodone Screen (TCY6ES=805) Urine Methadone Screen (PMX0TB=770) Ur Propoxyphene Screen (DOBUBC=532) Ur Barbiturates Screen (TFHMOX=163) Ur Tricyclics Screen (CHCCAI=083) Ur Phencyclidine Scrn (CUTOFF=25) Ur Amphetamine Screen (QXPROB=489) U Methamphetamines Scrn (RSBOXK=113) U Benzodiazepines Scrn (YGYHDJ=302) U Cocaine Metab Screen (DURZRA=740) U Marijuana (THC) Screen (CUTOFF=50) Ethyl Alcohol (0.00) gm% COVID-19 (MEKA) (NEGATIVE) Med Orders - Current: Current Medications Albuterol/Ipratropium (Duoneb 3.0-0.5 Mg/3 Ml) 3 ml NEB Q4H PRN PRN Reason: Shortness Of Breath/wheezing Bisacodyl (Dulcolax) 5 mg PO DAILY PRN PRN Reason: Constipation Clonidine HCl (Catapres) 0.1 mg PO Q4H PRN PRN Reason: Agitation Docusate Sodium (Colace) 100 mg PO BID PRN PRN Reason: Constipation Folic Acid (Folic Acid) 1 mg PO BEDTIME FELICITA Last Admin: 11/02/19 20:21 Dose: 1 mg Documented by: Haloperidol Lactate (Haldol) 2 mg IM Q4H PRN PRN Reason: Agitation Sodium Chloride (Normal Saline) 1,000 mls @ 999 mls/hr IV ASDIRECTED [facility] Last Admin: 11/02/19 15:29 Dose: 999 mls/hr Documented by: Sodium Chloride (Normal Saline) 1,000 mls @ 999 mls/hr IV ASDIRECTED [facility] Last Admin: 11/02/19 17:29 Dose: 999 mls/hr Documented by: Promethazine HCl 12.5 mg/ (Sodium Chloride) 50.5 mls @ 100 mls/hr IV Q6H PRN PRN Reason: Nausea/Vomiting Last Admin: 11/02/19 20:30 Dose: 100 mls/hr Documented by: Dextrose/Sodium Chloride (Dextrose 5%-1/2 Ns) 1,000 mls @ 100 mls/hr IV ASDIRECTED [facility] Last Admin: 11/02/19 23:23 Dose: 100 mls/hr Documented by: Lorazepam (Ativan) 0 mg IVPUSH Q20M PRN; Protocol PRN Reason: Withdrawal Symptoms Last Admin: 11/03/19 05:42 Dose: 2 mg Documented by: Metoprolol Succinate (Toprol Xl) 50 mg PO DAILY [facility] Metoprolol Tartrate (Lopressor) 5 mg IVPUSH Q4H PRN PRN Reason: Tachycardia Multivitamins (Thera) 1 each PO BEDTIME [facility] Last Admin: 11/02/19 20:21 Dose: 1 each Documented by: Ondansetron HCl (Zofran) 4 mg IV Q6H PRN PRN Reason: Nausea/Vomiting Pantoprazole Sodium (Protonix) 40 mg PO DAILY [facility] Quetiapine Fumarate (Seroquel) 50 mg PO BEDTIME [facility] Last Admin: 11/02/19 20:21 Dose: 50 mg Documented by: Senna/Docusate Sodium (Senna Plus) 1 tab PO BID PRN PRN Reason: Constipation Sodium Chloride (Saline Flush) 10 ml FLUSH ASDIRECTED PRN PRN Reason: Keep Vein Open Last Admin: 11/02/19 15:31 Dose: 10 ml Documented by: Thiamine HCl (Vitamin B-1) 100 mg PO BEDTIME [facility] Last Admin: 11/02/19 20:21 Dose: 100 mg Documented by: Topiramate (Topamax) 25 mg PO BID [facility] Last Admin: 11/02/19 20:21 Dose: 25 mg Documented by: Discontinued Medications Chlordiazepoxide HCl (Librium) 75 mg PO ONETIME ONE Stop: 11/02/19 20:54 Last Admin: 11/02/19 20:57 Dose: 75 mg Documented by: Chlordiazepoxide HCl (Librium) 50 mg PO Q4H [facility] Stop: 11/03/19 18:01 Last Admin: 11/03/19 02:31 Dose: Not Given Documented by: Chlordiazepoxide HCl (Librium) 50 mg PO Q6H [facility] Stop: 11/04/19 18:01 Chlordiazepoxide HCl (Librium) 25 mg PO Q4H [facility] Stop: 11/05/19 20:01 Chlordiazepoxide HCl (Librium) 25 mg PO Q6H [facility] Stop: 11/06/19 18:01 Diphenhydramine HCl (Benadryl) 25 mg IVPUSH ONETIME ONE Stop: 11/02/19 19:02 Last Admin: 11/02/19 20:22 Dose: 25 mg Documented by: Lorazepam (Ativan) 0 mg IVPUSH Q20M PRN; Protocol PRN Reason: Withdrawal Symptoms Last Admin: 11/02/19 21:22 Dose: 2 mg Documented by: Lorazepam (Ativan) 0 mg IVPUSH Q2H PRN; Protocol PRN Reason: Withdrawal Symptoms Ondansetron HCl (Zofran) 4 mg IVPUSH ONETIME ONE Stop: 11/02/19 15:18 Last Admin: 11/02/19 15:29 Dose: 4 mg Documented by: - Exam General: Sedated HEENT: Pupils Equal, Pupils Reactive Neck: Supple Lungs: Clear to Auscultation, Normal Respiratory Effort Cardiovascular: Regular Rhythm, Tachycardia GI/Abdominal Exam: Normal Bowel Sounds, Soft, Non-Tender, No Organomegaly, Other (Obese) (Male) Exam: Deferred Extremities: Normal Inspection, Normal Range of Motion, Non-Tender, No Pedal Edema Peripheral Pulses: 2+: Dorsalis Pedis (L), Dorsalis Pedis (R) Skin: Warm, Dry, Intact Neurological: Other (sedated) Psy/Mental Status: Withdrawal Symptoms Physical Findings Comments:: Physical exam is limited due to heavy sedation. His O2 sat is stable. He is tachypneic and tachycardic but afebrile. Sepsis Event Note - Evaluation Sepsis Screening Result: No Definite Risk - Focused Exam Vital Signs: Vital Signs Temp Resp BP Pulse Ox 11/03/19 04:00 36.3 C 20 123/73 94 L 11/03/19 00:00 36.7 C 21 H 158/81 H 94 L Date Exam was Performed: 11/03/19 Time Exam was Performed: 19:17 - Problem List Review Problem List Initiated/Reviewed/Updated: Yes - My Orders Last 24 Hours: My Active Orders 11/02/19 Dinner Regular Diet [DIET] 11/02/19 18:50 Height and Weight [RC] 0400 Oxygen Therapy [RC] .PRN Up With Assistance [RC] ASDIRECTED VTE/DVT Education [RC] Vital Signs [RC] Q4HR Consult to Case Management/Rose Grader [CONS] Routine Consult to Physician [CONS] Routine Albuterol/Ipratropium [DuoNeb 3.0-0.5 MG/3 ML] 3 ml NEB Q4H PRN Docusate Sodium [Colace] 100 mg PO BID PRN Docusate Sodium/Sennosides [Senna Plus] 1 tab PO BID PRN Ondansetron [Zofran] 4 mg IV Q6H PRN Promethazine [Phenergan] 12.5 mg Sodium Chloride 0.9% [Normal Saline] 50 ml IV Q6H bisacodyL [Dulcolax] 5 mg PO DAILY PRN Resuscitation Status Routine 11/02/19 18:51 Intake and Output [RC] 04,16 11/02/19 18:52 Sequential Compression Device [OM.PC] Per Unit Routine 11/02/19 18:57 Antiembolic Devices [RC] 11/02/19 18:58 Notify Provider Consults [RC] ASDIRECTED 11/02/19 19:02 CIWAA Assessment [RC] Q1HR Notify Provider [RC] .PRN Haloperidol Lactate [Haldol] 2 mg IM Q4H PRN cloNIDine [Catapres] 0.1 mg PO Q4H PRN 11/02/19 19:03 Metoprolol Tartrate [Lopressor] 5 mg IVPUSH Q4H PRN 11/02/19 21:00 Folic Acid 1 mg PO BEDTIME Multivitamins,Therapeutic [Thera] 1 each PO BEDTIME QUEtiapine [SEROqueL] 50 mg PO BEDTIME Thiamine [Vitamin B-1] 100 mg PO BEDTIME Topiramate [Topamax] 25 mg PO BID 11/03/19 09:00 Metoprolol Succinate [Toprol XL] 50 mg PO DAILY Pantoprazole [ProTONIX] 40 mg PO DAILY 11/04/19 05:11 CBC WITH AUTO DIFF [HEME] AM COMPREHENSIVE METABOLIC PN,CMP [CHEM] AM MAGNESIUM [CHEM] AM 11/05/19 05:11 COMPREHENSIVE METABOLIC PN,CMP [CHEM] AM MAGNESIUM [CHEM] AM - Plan Plan:: This is a 54 yo white male with past medical hx/o chronic alcoholism, hypertension, hyperlipidemia, GERD, and depression who was brought in by his due to acute confusion with withdrawal symptoms. Assessment: Acute: * ETOH Abuse/Withdrawal Symptoms. He carries a hx/o chronic alcoholism. He is not very forth coming and it appears he hides his drinking from his family. he drinks hard liquor. His found 1.25L of Vodka. Per family, his drinking has gotten out of hand since April. CIWA is bet 7-10. * Acute confusion 2/2 metabolic/toxic encephalopathy. Has abnormal e-lytes and UA/UDS pending. Head CT scan and Brain MRI done in ED are both negative for acute abnormal findings. This could be mainly to alcohol abuse. We will monitor. * Acute kidney injury. This is likely 2/2 volume depletion and dehydration from etoh abuse. No previous level for comparison. he comes in with a CR of 2.6 with a BUN of 49. So far he has received 2L of NS in ED. It appears he might have an underlying CKD. Had D5-1/2 NS overnight. We will switch to 1L NS at 100/hr. Renal U/S report read as dilated left renal pelvis: uncertain if due to functional UPJ obstruction or hydronephrosis, both resistivity indices are normal within both kidneys. Continue to avoid nephrotoxic agents, monitor Is/Os, rand renal panel in AM. * Hypovolemia Hyperosmolar Hyponatremia. This is likely due to etoh abuse and not able to eat of drink adequately. He is volume depleted. he comes in with a NA level of 133. Although this could be affected by his HCTZ and Zoloft he takes for maintenance medications. Resolved. Continue to hold HCTZ. * Increased AG Metabolic Acidosis. This is 2/2 ETOH Abuse. he is afebrile and no signs of systemic infection. Expect to improve with hydration. Resolved. * Hyperglycemia. He comes to us with BS level of 172. He carries no hx/o glucose intolerance or diabetes. Improved. We will monitor. * Transaminitis. He comes with AST and ALT levels of respectively. This is likely due to etoh abuse. Improved. May resume statin in AM. * Mild Leukocytosis. This is likely due to stress. He is afebrile w/o signs of systemic infection. About the same. Afebrile and UA is negative. We will continue to monitor. * Mild Thrombocytopenia. He comes in with an elevated platelet level of 493. Thi s is due to chronic alcohol use. Improved. We will continue to monitor. * Acute urinary retention. Had > 700 ml of urine residual after grey cath was placed in. U/S ordered. No hx/o enlarged prostate. * Obesity Class II. Carries a BMI of 33.9. Radiophone Operator consult for weight management. * Mild Proteinuria. This is likely due to his long standing hypertension. He was on hctz/lisinopril for maintenance medications. If not changes on his renal panel, we may be able to resume BP meds in AM. 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 Findings on renal US. He has no back pain or acute urinary complaints. UA is clean for infection. Sodium, AG, and CO2 improved. No hematuria on catheter bag. Consider abdominal CT scan w/o contrast to r/o mass. VCUG is a consideration but would need contrast. Will obtain chart from PCP to check if he has chronic renal insufficiency. Chronic: * HTN * HLD * GERD * Depression * Chronic Alcoholism Plan: Continue CIWAA protocol. Thiamine, folic acid and MVI. IV fluid for hydration. Renal U/S in AM. Avoid nephrotxic agents. Regular diet. DVT/GI Prophylaxis. Tele-psych consult with Dr. Bagley when appropriate. SW/CM for discharge planning. Spoke to his this morning and updated him about what went on overnight and his clinical progress.
[2019-11-03] MEDS: Pantoprazole 40 MG Tab.CR PO SCH (08:30)
[2019-11-03] MEDS: Metoprolol Succinate 50 MG Tab.ER PO SCH (08:31)
[2019-11-03] MEDS: Topiramate 25 MG Tab PO SCH ×2 (08:31→20:09)
[2019-11-03] MEDS: Sodium Chloride 0.9% 1,000 ML IV SCH ×2 (08:36→18:52)
[2019-11-03] MEDS ORDERED: Sodium Chloride 0.9% 1,000 ML IV SCH (09:00)
[2019-11-03] MEDS: cloNIDine 0.1 MG Tab PO PRN ×2 (09:28→20:08)
--- NOTE | 2019-11-03 10:31 | US ---
Renal ultrasound: Multiple real-time images of the kidneys were obtained. Left renal pelvis is mildly dilated. Right kidney shows no hydronephrosis. Kidneys show no cyst or solid abnormality. Right kidney length is 12.8 cm and left kidney length is 12.5 cm. Resistivity indices are normal within both kidneys. Blackmon catheter is noted within the bladder. Impression: 1. Dilated left renal pelvis. Uncertain if this is due to functional UPJ obstruction or represents hydronephrosis. 2. No additional abnormality is seen on renal ultrasound exam. Diagnostic code #3 This report was dictated in MDT
[2019-11-03] MEDS ORDERED: Magnesium Sulfate/Water 2 GM in Premix Bag 1 BAG IV ONE (11:00)
--- NOTE | 2019-11-03 13:23 | CT ---
CT abdomen and pelvis Technique: Multiple axial sections were obtained from above the liver inferiorly through the pubic symphysis. Intravenous and oral contrast not utilized. Study performed as a ureteral stone protocol. Comparison: Previous renal ultrasound exam performed earlier on the same day (8:53 AM). Findings: Kidneys show no abnormal calcifications. Previously suggested dilated left renal pelvis correlates to a cyst within the left kidney which is mostly cortical in location and measures about 4.4 cm. This slightly projects into the central kidney which is felt to be incidental. No hydronephrosis is seen. No ureteral dilatation or ureteral stone is seen. Other findings: Liver shows fatty infiltration. Scarring is noted within the right lung base. Spleen appears within normal limits. Adrenal glands show no nodule. Pancreas shows no discrete abnormality. Gallbladder contains no calcified gallstones. Abdominal aorta shows no aneurysm. No retroperitoneal adenopathy or mesenteric abnormalities are seen. Bulging of the anterior rectus sheath is seen anteriorly. Blackmon catheter is noted within the bladder. No free fluid or inflammatory change is appreciated. Mild diverticuli are seen within the sigmoid colon without diverticulitis. Appendix is not appreciated with certainty. Bone window settings were reviewed which shows mild degenerative change scattered within the spine. No acute osseous finding is appreciated. Fat-containing umbilical hernia is noted. Impression: 1. Cortical cyst within the left kidney causing the questioned dilated renal pelvis on recent ultrasound. No hydronephrosis is seen. No renal calculi or ureteral calculi are seen. 2. Other findings as noted above which are nonacute. Diagnostic code #2 This report was dictated in MDT
[2019-11-03] MEDS: Heparin Sodium 5,000 Units/ML Vial SUBCUT SCH ×2 (13:30→20:32)
[2019-11-03] MEDS: Thiamine 100 MG Tab PO SCH (20:09)
[2019-11-03] MEDS: Multivitamins,Therapeutic Tab PO SCH (20:09)
[2019-11-03] MEDS: QUEtiapine 25 MG Tab PO SCH (20:09)
[2019-11-03] MEDS: Folic Acid 1 MG Tab PO SCH (20:09)
[2019-11-03] MEDS ORDERED: diphenhydrAMINE 50 MG/ML SDV IVPUSH ONE (21:00)
[2019-11-04] MEDS ORDERED: chlordiazePOXIDE 25 MG Cap PO SCH
[2019-11-04] MEDS: Sodium Chloride 0.9% 1,000 ML IV SCH ×3 (04:52→22:30)
[2019-11-04] MEDS: Heparin Sodium 5,000 Units/ML Vial SUBCUT SCH ×3 (04:53→21:01)
--- NOTE | 2019-11-04 07:05 | PCM.PN ---
- General Info Date of Service: 11/04/19 Admission Dx/Problem (Free Text): ETOH Withdrawal Subjective Update: 11/04/19: Patient detoxed hard last night. He was getting ativan round the clock starting at 11 pm. He is comfortably resting this morning. His CIWAA is bet 7- 10. His UA and UDS were negative. Functional Status: Reports: Pain Controlled - Review of Systems General: Denies: Fever, Chills Pulmonary: Denies: Shortness of Breath Cardiovascular: Denies: Chest Pain Gastrointestinal: Denies: Abdominal Pain, Nausea, Vomiting Neurological: Reports: Confusion, Tremors. Denies: Seizure, Syncope Psychiatric: Denies: Anxiety, Hallucinations Systems Review Comment:: ROS obtained from night nurse. Patient heavily sedated. He has been asleep since 2100 last night. CIWAA score runs from 3-5. His labs were fairly unremarkable. - Patient Data Vitals - Most Recent: Last Vital Signs Temp 36.5 C 11/04/19 04:00 Pulse 70 11/04/19 06:00 Resp 23 H 11/04/19 06:00 BP 135/78 11/04/19 04:00 Pulse Ox 69 L 11/04/19 06:00 Weight - Most Recent: 101.378 kg I&O - Last 24 Hours: Intake & Output 11/03/19 11/04/19 11/04/19 22:59 06:59 14:59 Intake Total 1810 1348 Output Total 900 430 Balance 910 918 Lab Results Last 24 Hours: Laboratory Results - last 24 hr 11/03/19 11/03/19 11/03/19 Range/Units 08:05 08:05 08:55 WBC (4.23-9.07) K/mm3 RBC (4.63-6.08) M/mm3 Hgb (13.7-17.5) gm/dl Hct (40.1-51.0) % MCV (79.0-92.2) fl MCH (25.7-32.2) pg MCHC (32.2-35.5) g/dl RDW Std Deviation (35.1-43.9) fL Plt Count (163-337) K/mm3 MPV (9.4-12.3) fl Neut % (Auto) (34.0-67.9) % Lymph % (Auto) (21.8-53.1) % [place] % (Auto) (5.3-12.2) % Eos % (Auto) (0.8-7.0) Baso % (Auto) (0.1-1.2) % Neut # (Auto) (1.78-5.38) K/mm3 Lymph # (Auto) (1.32-3.57) K/mm3 [place] # (Auto) (0.30-0.82) K/mm3 Eos # (Auto) (0.04-0.54) K/mm3 Baso # (Auto) (0.01-0.08) K/mm3 Ur Random Creatinine 106.5 103.7 (30.0-125.0) mg/dL U Random Total Protein 22.2 H (0.0-11.8) mg/dL Ur Random Sodium 83 (40-220) mEq/L Protein/Creatinin Ratio 208.5 H (0-149) mg/g Ur Potassium Concent 27.0 mEq/L U Phosphorus Concen mg/dL 11/03/19 11/04/19 Range/Units 08:55 04:37 WBC 8.58 (4.23-9.07) K/mm3 RBC 5.09 (4.63-6.08) M/mm3 Hgb 14.0 (13.7-17.5) gm/dl Hct 43.9 (40.1-51.0) % MCV 86.2 (79.0-92.2) fl MCH 27.5 (25.7-32.2) pg MCHC 31.9 L (32.2-35.5) g/dl RDW Std Deviation 44.0 H (35.1-43.9) fL Plt Count 266 (163-337) K/mm3 MPV 8.3 L (9.4-12.3) fl Neut % (Auto) 63.2 (34.0-67.9) % Lymph % (Auto) 28.1 (21.8-53.1) % [place] % (Auto) 8.0 (5.3-12.2) % Eos % (Auto) 0.3 L (0.8-7.0) Baso % (Auto) 0.2 (0.1-1.2) % Neut # (Auto) 5.41 H (1.78-5.38) K/mm3 Lymph # (Auto) 2.41 (1.32-3.57) K/mm3 [place] # (Auto) 0.69 (0.30-0.82) K/mm3 Eos # (Auto) 0.03 L (0.04-0.54) K/mm3 Baso # (Auto) 0.02 (0.01-0.08) K/mm3 Ur Random Creatinine (30.0-125.0) mg/dL U Random Total Protein (0.0-11.8) mg/dL Ur Random Sodium (40-220) mEq/L Protein/Creatinin Ratio (0-149) mg/g Ur Potassium Concent mEq/L U Phosphorus Concen 65.4 mg/dL Med Orders - Current: Current Medications Albuterol/Ipratropium (Duoneb 3.0-0.5 Mg/3 Ml) 3 ml NEB Q4H PRN PRN Reason: Shortness Of Breath/wheezing Bisacodyl (Dulcolax) 5 mg PO DAILY PRN PRN Reason: Constipation Clonidine HCl (Catapres) 0.1 mg PO Q4H PRN PRN Reason: Agitation Last Admin: 11/03/19 20:08 Dose: 0.1 mg Documented by: Docusate Sodium (Colace) 100 mg PO BID PRN PRN Reason: Constipation Folic Acid (Folic Acid) 1 mg PO BEDTIME [facility] Last Admin: 11/03/19 20:09 Dose: 1 mg Documented by: Haloperidol Lactate (Haldol) 2 mg IM Q4H PRN PRN Reason: Agitation Heparin Sodium (Porcine) (Heparin Sodium) 5,000 units SUBCUT Q8H [facility] Last Admin: 11/04/19 04:53 Dose: 5,000 units Documented by: Promethazine HCl 12.5 mg/ (Sodium Chloride) 50.5 mls @ 100 mls/hr IV Q6H PRN PRN Reason: Nausea/Vomiting Last Admin: 11/02/19 20:30 Dose: 100 mls/hr Documented by: Sodium Chloride (Normal Saline) 1,000 mls @ 100 mls/hr IV ASDIRECTED [facility] Last Admin: 11/04/19 04:52 Dose: 100 mls/hr Documented by: Lorazepam (Ativan) 0 mg IVPUSH Q1H PRN; Protocol PRN Reason: Withdrawal Symptoms Last Admin: 11/03/19 20:11 Dose: 2 mg Documented by: Metoprolol Succinate (Toprol Xl) 50 mg PO DAILY [facility] Last Admin: 11/03/19 08:31 Dose: 50 mg Documented by: Metoprolol Tartrate (Lopressor) 5 mg IVPUSH Q4H PRN PRN Reason: Tachycardia Multivitamins (Thera) 1 each PO BEDTIME [facility] Last Admin: 11/03/19 20:09 Dose: 1 each Documented by: Ondansetron HCl (Zofran) 4 mg IV Q6H PRN PRN Reason: Nausea/Vomiting Pantoprazole Sodium (Protonix) 40 mg PO DAILY [facility] Last Admin: 11/03/19 08:30 Dose: 40 mg Documented by: Quetiapine Fumarate (Seroquel) 50 mg PO BEDTIME [facility] Last Admin: 11/03/19 20:09 Dose: 50 mg Documented by: Senna/Docusate Sodium (Senna Plus) 1 tab PO BID PRN PRN Reason: Constipation Sodium Chloride (Saline Flush) 10 ml FLUSH ASDIRECTED PRN PRN Reason: Keep Vein Open Last Admin: 11/02/19 15:31 Dose: 10 ml Documented by: Thiamine HCl (Vitamin B-1) 100 mg PO BEDTIME [facility] Last Admin: 11/03/19 20:09 Dose: 100 mg Documented by: Topiramate (Topamax) 25 mg PO BID [facility] Last Admin: 11/03/19 20:09 Dose: 25 mg Documented by: Discontinued Medications Chlordiazepoxide HCl (Librium) 75 mg PO ONETIME ONE Stop: 11/02/19 20:54 Last Admin: 11/02/19 20:57 Dose: 75 mg Documented by: Chlordiazepoxide HCl (Librium) 50 mg PO Q4H [facility] Stop: 11/03/19 18:01 Last Admin: 11/03/19 02:31 Dose: Not Given Documented by: Chlordiazepoxide HCl (Librium) 50 mg PO Q6H [facility] Stop: 11/04/19 18:01 Chlordiazepoxide HCl (Librium) 25 mg PO Q4H [facility] Stop: 11/05/19 20:01 Chlordiazepoxide HCl (Librium) 25 mg PO Q6H [facility] Stop: 11/06/19 18:01 Diphenhydramine HCl (Benadryl) 25 mg IVPUSH ONETIME ONE Stop: 11/02/19 19:02 Last Admin: 11/02/19 20:22 Dose: 25 mg Documented by: Diphenhydramine HCl (Benadryl) 25 mg IVPUSH ONETIME ONE Stop: 11/03/19 21:01 Last Admin: 11/03/19 20:51 Dose: 25 mg Documented by: Sodium Chloride (Normal Saline) 1,000 mls @ 999 mls/hr IV ASDIRECTED [facility] Last Admin: 11/02/19 15:29 Dose: 999 mls/hr Documented by: Sodium Chloride (Normal Saline) 1,000 mls @ 999 mls/hr IV ASDIRECTED [facility] Last Admin: 11/02/19 17:29 Dose: 999 mls/hr Documented by: Dextrose/Sodium Chloride (Dextrose 5%-1/2 Ns) 1,000 mls @ 100 mls/hr IV ASDIRECTED [facility] Last Admin: 11/02/19 23:23 Dose: 100 mls/hr Documented by: Sodium Chloride (Normal Saline) 1,000 mls @ 50 mls/hr IV ASDIRECTED [facility] Lorazepam (Ativan) 0 mg IVPUSH Q20M PRN; Protocol PRN Reason: Withdrawal Symptoms Last Admin: 11/02/19 21:22 Dose: 2 mg Documented by: Lorazepam (Ativan) 0 mg IVPUSH Q2H PRN; Protocol PRN Reason: Withdrawal Symptoms Lorazepam (Ativan) 0 mg IVPUSH Q20M PRN; Protocol PRN Reason: Withdrawal Symptoms Last Admin: 11/03/19 08:31 Dose: 2 mg Documented by: Ondansetron HCl (Zofran) 4 mg IVPUSH ONETIME ONE Stop: 11/02/19 15:18 Last Admin: 11/02/19 15:29 Dose: 4 mg Documented by: - Exam General: Sedated HEENT: Pupils Equal, Pupils Reactive Neck: Supple Lungs: Clear to Auscultation, Normal Respiratory Effort Cardiovascular: Regular Rate, Regular Rhythm GI/Abdominal Exam: Normal Bowel Sounds, Soft, Non-Tender, No Organomegaly, Other (Obese) (Male) Exam: Deferred Back Exam: Normal Inspection Extremities: Normal Inspection, Non-Tender, No Pedal Edema Peripheral Pulses: 2+: Dorsalis Pedis (L), Dorsalis Pedis (R) Skin: Warm, Dry, Intact Psy/Mental Status: No: Withdrawal Symptoms Physical Findings Comments:: Physical exam is limited due to sedation. He is arousable however with intact air way. Sepsis Event Note - Evaluation Sepsis Screening Result: No Definite Risk - Focused Exam Vital Signs: Vital Signs Temp Pulse Resp BP BP Pulse Ox Pulse Ox 11/04/19 06:00 70 23 H 69 L 11/04/19 05:00 63 17 89 L 11/04/19 04:00 36.5 C 24 H 135/78 95 11/04/19 03:00 75 24 H 92 L 11/04/19 02:00 71 22 H 97 11/04/19 01:00 77 23 H 98 11/04/19 00:00 36.4 C 22 H 126/81 94 L 11/03/19 23:00 78 22 H 97 11/03/19 22:00 78 24 H 96 11/03/19 21:41 96 11/03/19 21:00 78 23 H 92 L 11/03/19 20:08 133/88 11/03/19 20:01 84 119/87 94 L 11/03/19 20:00 37.0 C 20 133/88 95 Date Exam was Performed: 11/05/19 Time Exam was Performed: 08:08 - Problem List Review Problem List Initiated/Reviewed/Updated: Yes - My Orders Last 24 Hours: My Active Orders 11/03/19 08:15 Insert Grey Catheter [Insert Urinary Catheter] [OM.PC] Q24H 11/03/19 08:17 Urinary Catheter Assessment [RC] Q4H 11/03/19 08:55 PHOSPHORUS, URINE Routine POTASSIUM, URINE Routine 11/03/19 09:00 Metoprolol Succinate [Toprol XL] 50 mg PO DAILY Pantoprazole [ProTONIX] 40 mg PO DAILY Sodium Chloride 0.9% [Normal Saline] 1,000 ml IV ASDIRECTED 11/03/19 10:22 Consult for Substance Abuse [CONS] Routine Consult to Dietary [Consult to Flue Dust Laborer] [CONS] Routine 11/03/19 13:30 Heparin Sodium 5,000 units SUBCUT Q8H 11/04/19 04:37 COMPREHENSIVE METABOLIC PN,CMP [CHEM] AM MAGNESIUM [CHEM] AM 11/05/19 05:11 COMPREHENSIVE METABOLIC PN,CMP [CHEM] AM MAGNESIUM [CHEM] AM 11/07/19 07:00 CBC W/O DIFF,HEMOGRAM [HEME] MOTH@69911/10/19 07:00 CBC W/O DIFF,HEMOGRAM [HEME] MOTH@69911/14/19 07:00 CBC W/O DIFF,HEMOGRAM [HEME] MOTH@69911/17/19 07:00 CBC W/O DIFF,HEMOGRAM [HEME] MOTH@69911/21/19 07:00 CBC W/O DIFF,HEMOGRAM [HEME] MOTH@69911/24/19 07:00 CBC W/O DIFF,HEMOGRAM [HEME] MOTH@07 - Plan Plan:: This is a 54 yo white male with past medical hx/o chronic alcoholism, hypertension, hyperlipidemia, GERD, and depression who was brought in by his due to acute confusion with withdrawal symptoms. Assessment: Acute: * ETOH Abuse/Withdrawal Symptoms. He carries a hx/o chronic alcoholism. He is not very forth coming and it appears he hides his drinking from his family. he drinks hard liquor. His found 1.25L of Vodka. Per family, his drinking has gotten out of hand since April. CIWAA score is bet 3-5. Continue CIWAA protocol. * Acute confusion 2/2 metabolic/toxic encephalopathy. Has abnormal e-lytes and UA/UDS pending. Head CT scan and Brain MRI done in ED are both negative for acute abnormal findings. This could be mainly to alcohol abuse. He remains confused. We will continue monitor. * Acute on chronic CKD. This is likely 2/2 volume depletion and dehydration from etoh abuse. No previous level for comparison. He comes in with a CR of 2.6 with a BUN of 49. So far he has received 2L of NS in ED. It appears he might have an underlying CKD. Had D5-1/2 NS overnight. We will switch to 1L NS at 100/hr. Renal U/S report read as dilated left renal pelvis: uncertain if due to functional UPJ obstruction or hydronephrosis, both resistivity indices are normal within both kidneys. Continue to avoid nephrotoxic agents, monitor Is/Os, and daily labs. * Acute urinary retention. Had > 700 ml of urine residual after grey cath was placed in. No hx/o enlarged prostate. Will continue with grey cath until he is fully alert and awake. * Obesity Class II. Carries a BMI of 33.9. Flue Dust Laborer consult for weight management. * Mild Proteinuria. This is likely due to his long standing hypertension. He was on hctz/lisinopril for maintenance medications. If no changes on his renal panel, we may be able to resume lisinopril in AM. 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 Findings on renal US. He has no back pain or acute urinary complaints. UA is clean for infection. Sodium, AG, and CO2 improved. No hematuria on catheter bag. VCUG is a consideration but would need contrast. Will obtain chart from PCP to check if he has chronic renal insufficiency. Abdominal CT scan report read as cortical cyst within the left kidney causing the questioned dilated renal pelvis on recent U/S. No hydronephrosis seen. No renal calculi or ureteral calculi seen. No additional management needed at this point. This can be followed up outpatient. * Hypocalcemia. He came to us with an initial level of 8.1. Slightly improved to 8.3. He has not had oral intake since admission due to withdrawal symptoms. He has been sleeping pretty. Expect to improve once he starts eating and drinking. * Fatty Liver infiltrate. Abnormal finding noted on Abdominal/Pelvis CT scan. This is likely due to chronic alcoholism. Flue Dust Laborer's consult for proper diet. Will preparole counseling aide on LSM once fully alert and awake. Resolved: * Hypovolemia Hyperosmolar Hyponatremia. This is likely due to etoh abuse and not able to eat of drink adequately. He is volume depleted. he comes in with a NA level of 133. Although this could be affected by his HCTZ and Zoloft he takes for maintenance medications. Resolved. Continue to hold HCTZ. * Increased AG Metabolic Acidosis. This is 2/2 ETOH Abuse. he is afebrile and no signs of systemic infection. Expect to improve with hydration. Resolved. * Hyperglycemia. He comes to us with BS level of 172. He carries no hx/o glucose intolerance or diabetes. Now back to normal range. * Transaminitis. He comes with AST and ALT levels of respectively. This is likely due to etoh abuse. Now back to normal range. * Mild Leukocytosis. This is likely due to stress. He is afebrile w/o signs of systemic infection. Afebrile and UA is negative. Now back to normal range. * Mild Thrombocytopenia. He comes in with an elevated platelet level of 493. This is due to chronic alcohol use. Now back to normal range. Chronic: * HTN * HLD * GERD * Depression * Chronic Alcoholism Plan: Patient is still in withdrawal. Will continue CIWAA protocol. Thiamine, folic acid and MVI. IV fluid for hydration. Continue to avoid nephrotoxic agents. Regular diet once fully alert and awake. DVT/GI Prophylaxis. Tele-psych consult with Dr. Bagley when appropriate. SANDEE/KIAH for discharge planning. Spoke to his this morning and updated her about his clinical progress. I went over the results of his CT scan. wants him to go to [facility] to rehab once medically cleared. Will relay info to SANDEE/KIAH for d/c planning. Informed about the scarring within the right lung base. Critical care time spent: > 35 mins
[2019-11-04] MEDS: Metoprolol Succinate 50 MG Tab.ER PO SCH (08:06)
[2019-11-04] MEDS: Topiramate 25 MG Tab PO SCH ×2 (08:06→21:04)
[2019-11-04] MEDS: Pantoprazole 40 MG Tab.CR PO SCH (08:06)
[2019-11-04] MEDS: Hydrochlorothiazide 12.5 MG Cap PO SCH (09:15)
[2019-11-04] MEDS: Lisinopril 20 MG Tab PO SCH (09:15)
[2019-11-04] MEDS: cloNIDine 0.1 MG Tab PO PRN (13:24)
[2019-11-04] MEDS: LORazepam 2 MG/ML SDV IVPUSH PRN ×6 (14:06→23:52)
[2019-11-04] MEDS: Thiamine 100 MG Tab PO SCH (21:04)
[2019-11-04] MEDS: Multivitamins,Therapeutic Tab PO SCH ×3 (21:05→21:39)
[2019-11-04] MEDS: Folic Acid 1 MG Tab PO SCH (21:05)
[2019-11-04] MEDS: QUEtiapine 25 MG Tab PO SCH (21:05)
[2019-11-05] MEDS ORDERED: chlordiazePOXIDE 25 MG Cap PO SCH
[2019-11-05] MEDS: LORazepam 2 MG/ML SDV IVPUSH PRN ×6 (00:59→23:55)
[2019-11-05] MEDS: Heparin Sodium 5,000 Units/ML Vial SUBCUT SCH ×3 (05:52→23:10)
--- NOTE | 2019-11-05 07:02 | PCM.PN ---
- General Info Date of Service: 11/05/19 Admission Dx/Problem (Free Text): ETOH Withdrawal Subjective Update: 11/05/19: Patient is still in withdrawal. He is confused and having visual hallucinations. He has received haldol and ativan round the clock overnight. He ate a small piece of sandwich at about 5 PM but nothing last night. He is however awake but not fully alert and able to engage (i.e. talk ) this morning. Updated his about his clinical progress. His Mg is down to1.7 and his renal panel improved. His CIWAA is bet 9-15. 11/04/19: Patient detoxed hard last night. He was getting ativan round the clock starting at 11 pm. He is comfortably resting this morning. His CIWAA is bet 7- 10. His UA and UDS were negative. Functional Status: Reports: Pain Controlled, Tolerating Diet, Ambulating - Review of Systems General: Denies: Fever, Chills HEENT: Reports: No Symptoms Pulmonary: Denies: Shortness of Breath Cardiovascular: Denies: Chest Pain Gastrointestinal: Denies: Abdominal Pain, Nausea, Vomiting Genitourinary: Reports: No Symptoms Musculoskeletal: Reports: No Symptoms Skin: Reports: No Symptoms Psychiatric: Reports: Confusion, Agitation, Hallucinations. Denies: Anxiety, Suicidal Ideation, Homicidal Ideation - Patient Data Vitals - Most Recent: Last Vital Signs Temp 36.2 C 11/04/19 21:48 Pulse 71 11/05/19 04:02 Resp 25 H 11/05/19 04:02 BP 130/93 H 11/05/19 04:02 Pulse Ox 97 11/05/19 04:02 Weight - Most Recent: 102.058 kg I&O - Last 24 Hours: Intake & Output 11/04/19 11/05/19 11/05/19 22:59 06:59 14:59 Intake Total 875 1500 Output Total 785 900 Balance 90 600 Lab Results Last 24 Hours: Laboratory Results - last 24 hr 11/04/19 11/05/19 Range/Units 04:37 04:10 Sodium 141 144 (136-145) mEq/L Potassium 4.1 3.6 (3.5-5.1) mEq/L Chloride 106 106 (98-107) mEq/L Carbon Dioxide 27 28 (21-32) mEq/L Anion Gap 12.1 13.6 (5-15) BUN 11 10 (7-18) mg/dL Creatinine 1.7 H 1.3 (0.7-1.3) mg/dL Est Cr Clr Drug Dosing 48.06 62.85 mL/min Estimated GFR (MDRD) 42 58 (>60) mL/min BUN/Creatinine Ratio 6.5 L 7.7 L (14-18) Glucose 97 87 (74-106) mg/dL Calcium 8.3 L 8.8 (8.5-10.1) mg/dL Magnesium 1.9 1.7 L (1.8-2.4) mg/dl Total Bilirubin 0.6 0.6 (0.2-1.0) mg/dL AST 29 29 (15-37) U/L ALT 49 46 (16-63) U/L Alkaline Phosphatase 72 67 (46-116) U/L Total Protein 7.0 7.0 (6.4-8.2) g/dl Albumin 3.1 L 3.0 L (3.4-5.0) g/dl Globulin 3.9 4.0 gm/dL Albumin/Globulin Ratio 0.8 L 0.8 L (1-2) Med Orders - Current: Current Medications Albuterol/Ipratropium (Duoneb 3.0-0.5 Mg/3 Ml) 3 ml NEB Q4H PRN PRN Reason: Shortness Of Breath/wheezing Bisacodyl (Dulcolax) 5 mg PO DAILY PRN PRN Reason: Constipation Clonidine HCl (Catapres) 0.1 mg PO Q4H PRN PRN Reason: Agitation Last Admin: 11/04/19 13:24 Dose: 0.1 mg Documented by: Docusate Sodium (Colace) 100 mg PO BID PRN PRN Reason: Constipation Folic Acid (Folic Acid) 1 mg PO BEDTIME [facility] Last Admin: 11/04/19 21:05 Dose: 1 mg Documented by: Haloperidol Lactate (Haldol) 2 mg IM Q4H PRN PRN Reason: Agitation Last Admin: 11/04/19 23:55 Dose: 2 mg Documented by: Heparin Sodium (Porcine) (Heparin Sodium) 5,000 units SUBCUT Q8H [facility] Last Admin: 11/05/19 05:52 Dose: 5,000 units Documented by: Hydrochlorothiazide (Hydrochlorothiazide) 12.5 mg PO DAILY [facility] Last Admin: 11/04/19 09:15 Dose: 12.5 mg Documented by: Promethazine HCl 12.5 mg/ (Sodium Chloride) 50.5 mls @ 100 mls/hr IV Q6H PRN PRN Reason: Nausea/Vomiting Last Admin: 11/02/19 20:30 Dose: 100 mls/hr Documented by: Sodium Chloride (Normal Saline) 1,000 mls @ 100 mls/hr IV ASDIRECTED [facility] Last Admin: 11/04/19 22:30 Dose: 100 mls/hr Documented by: Lisinopril (Prinivil) 20 mg PO DAILY [facility] Last Admin: 11/04/19 09:15 Dose: 20 mg Documented by: Lorazepam (Ativan) 0 mg IVPUSH Q1H PRN; Protocol PRN Reason: Withdrawal Symptoms Last Admin: 11/05/19 05:50 Dose: 2 mg Documented by: Metoprolol Succinate (Toprol Xl) 50 mg PO DAILY [facility] Last Admin: 11/04/19 08:06 Dose: 50 mg Documented by: Metoprolol Tartrate (Lopressor) 5 mg IVPUSH Q4H PRN PRN Reason: Tachycardia Multivitamins (Thera) 1 each PO BEDTIME [facility] Last Admin: 11/04/19 21:23 Dose: 1 each Documented by: Ondansetron HCl (Zofran) 4 mg IV Q6H PRN PRN Reason: Nausea/Vomiting Pantoprazole Sodium (Protonix) 40 mg PO DAILY [facility] Last Admin: 11/04/19 08:06 Dose: 40 mg Documented by: Quetiapine Fumarate (Seroquel) 50 mg PO BEDTIME [facility] Last Admin: 11/04/19 21:05 Dose: 50 mg Documented by: Senna/Docusate Sodium (Senna Plus) 1 tab PO BID PRN PRN Reason: Constipation Sodium Chloride (Saline Flush) 10 ml FLUSH ASDIRECTED PRN PRN Reason: Keep Vein Open Last Admin: 11/02/19 15:31 Dose: 10 ml Documented by: Thiamine HCl (Vitamin B-1) 100 mg PO BEDTIME [facility] Last Admin: 11/04/19 21:04 Dose: 100 mg Documented by: Topiramate (Topamax) 25 mg PO BID [facility] Last Admin: 11/04/19 21:04 Dose: 25 mg Documented by: Discontinued Medications Chlordiazepoxide HCl (Librium) 75 mg PO ONETIME ONE Stop: 11/02/19 20:54 Last Admin: 11/02/19 20:57 Dose: 75 mg Documented by: Chlordiazepoxide HCl (Librium) 50 mg PO Q4H [facility] Stop: 11/03/19 18:01 Last Admin: 11/03/19 02:31 Dose: Not Given Documented by: Chlordiazepoxide HCl (Librium) 50 mg PO Q6H [facility] Stop: 11/04/19 18:01 Chlordiazepoxide HCl (Librium) 25 mg PO Q4H [facility] Stop: 11/05/19 20:01 Chlordiazepoxide HCl (Librium) 25 mg PO Q6H [facility] Stop: 11/06/19 18:01 Diphenhydramine HCl (Benadryl) 25 mg IVPUSH ONETIME ONE Stop: 11/02/19 19:02 Last Admin: 11/02/19 20:22 Dose: 25 mg Documented by: Diphenhydramine HCl (Benadryl) 25 mg IVPUSH ONETIME ONE Stop: 11/03/19 21:01 Last Admin: 11/03/19 20:51 Dose: 25 mg Documented by: Sodium Chloride (Normal Saline) 1,000 mls @ 999 mls/hr IV ASDIRECTED [facility] Last Admin: 11/02/19 15:29 Dose: 999 mls/hr Documented by: Sodium Chloride (Normal Saline) 1,000 mls @ 999 mls/hr IV ASDIRECTED [facility] Last Admin: 11/02/19 17:29 Dose: 999 mls/hr Documented by: Dextrose/Sodium Chloride (Dextrose 5%-1/2 Ns) 1,000 mls @ 100 mls/hr IV ASDIRECTED [facility] Last Admin: 11/02/19 23:23 Dose: 100 mls/hr Documented by: Sodium Chloride (Normal Saline) 1,000 mls @ 50 mls/hr IV ASDIRECTED [facility] Lorazepam (Ativan) 0 mg IVPUSH Q20M PRN; Protocol PRN Reason: Withdrawal Symptoms Last Admin: 11/02/19 21:22 Dose: 2 mg Documented by: Lorazepam (Ativan) 0 mg IVPUSH Q2H PRN; Protocol PRN Reason: Withdrawal Symptoms Lorazepam (Ativan) 0 mg IVPUSH Q20M PRN; Protocol PRN Reason: Withdrawal Symptoms Last Admin: 11/03/19 08:31 Dose: 2 mg Documented by: Multivitamins (Thera) 1 each PO BEDTIME [facility] Last Admin: 11/04/19 21:39 Dose: Not Given Documented by: Ondansetron HCl (Zofran) 4 mg IVPUSH ONETIME ONE Stop: 11/02/19 15:18 Last Admin: 11/02/19 15:29 Dose: 4 mg Documented by: - Exam General: Cooperative HEENT: Pupils Equal, Pupils Reactive, Mucous Membr. Moist/[place] Neck: Supple Lungs: Clear to Auscultation, Normal Respiratory Effort, Other (tachypneic) Cardiovascular: Regular Rate, Regular Rhythm GI/Abdominal Exam: Normal Bowel Sounds, Soft, Non-Tender, No Organomegaly, No Distention, No Mass, Other (Obese) (Male) Exam: Deferred Back Exam: Normal Inspection Extremities: Normal Inspection, Normal Range of Motion, Non-Tender, No Pedal Edema, Normal Capillary Refill Peripheral Pulses: 2+: Dorsalis Pedis (L), Dorsalis Pedis (R) Skin: Warm, Dry, Intact Neurological: Other (slow speech) Psy/Mental Status: Normal Mood, Withdrawal Symptoms, Other (awake) Physical Findings Comments:: Confused but able to engage. His response is slow. Sepsis Event Note - Evaluation Sepsis Screening Result: No Definite Risk - Focused Exam Vital Signs: Vital Signs Temp Pulse Pulse Resp BP BP Pulse Ox 11/05/19 04:02 71 25 H 130/93 H 97 11/05/19 04:01 69 22 H 97 11/05/19 04:00 73 21 H 96 11/05/19 03:30 77 24 H 97 11/05/19 03:00 67 22 H 90 L 11/05/19 02:30 65 24 H 89 L 11/05/19 02:00 72 22 H 96 11/05/19 01:30 24 H 11/05/19 01:00 29 H 11/05/19 00:30 76 24 H 97 11/05/19 00:01 78 29 H 98 11/05/19 00:00 21 H 134/100 H 11/04/19 23:59 23 H 11/04/19 23:00 26 H 11/04/19 22:00 76 26 H 96 11/04/19 21:48 36.2 C 11/04/19 21:34 84 30 H 138/91 H 95 11/04/19 21:33 81 27 H 96 11/04/19 21:00 81 19 96 11/04/19 20:01 86 21 H 96 11/04/19 20:00 83 21 H 171/124 H 88 L 11/04/19 19:59 81 20 97 11/04/19 19:55 74 19 156/95 H 95 11/04/19 19:54 69 19 92 L 11/04/19 19:53 73 19 154/107 H 96 11/04/19 19:52 67 20 95 11/04/19 19:51 75 20 156/95 H 95 Date Exam was Performed: 11/05/19 Time Exam was Performed: 08:09 - Problem List Review Problem List Initiated/Reviewed/Updated: Yes - My Orders Last 24 Hours: My Active Orders 11/04/19 09:00 hydroCHLOROthiazide 12.5 mg PO DAILY lisinopriL [Prinivil] 20 mg PO DAILY 11/04/19 13:57 One To One Therapy [BH] Urgent 11/04/19 21:30 Multivitamins,Therapeutic [Thera] 1 each PO BEDTIME 11/07/19 07:00 CBC W/O DIFF,HEMOGRAM [HEME] MOTH@69911/10/19 07:00 CBC W/O DIFF,HEMOGRAM [HEME] MOTH@0711/14/19 07:00 CBC W/O DIFF,HEMOGRAM [HEME] MOTH@69911/17/19 07:00 CBC W/O DIFF,HEMOGRAM [HEME] MOTH@69911/21/19 07:00 CBC W/O DIFF,HEMOGRAM [HEME] MOTH@0700 11/24/19 07:00 CBC W/O DIFF,HEMOGRAM [HEME] MOTH@07 - Plan Plan:: This is a 54 yo white male with past medical hx/o chronic alcoholism, hypertension, hyperlipidemia, GERD, and depression who was brought in by his due to acute confusion with withdrawal symptoms. Assessment: Acute: * ETOH Abuse/Withdrawal Symptoms. He carries a hx/o chronic alcoholism. He is not very forth coming and it appears he hides his drinking from his family. he drinks hard liquor. His found 1.25L of Vodka. Per family, his drinking has gotten out of hand since April. CIWA is score is bet 9-15. Will cut down CIWAA regimen, goal to utilize clonidine and benzo. * Acute confusion 2/2 metabolic/toxic encephalopathy. Has abnormal e-lytes and UA/UDS pending. Head CT scan and Brain MRI done in ED are both negative for acute abnormal findings. This could be mainly to alcohol abuse. He remains confused but awake and no able to engage. We will continue monitor. * Acute on chronic CKD, unknown stage. This is likely 2/2 volume depletion and dehydration from etoh abuse. No previous level for comparison. He comes in with a CR of 2.6 with a BUN of 49. So far he has received 2L of NS in ED. It appears he might have an underlying CKD. Had D5-1/2 NS overnight. We will switch to 1L NS at 100/hr. Renal U/S report read as dilated left renal pelvis: uncertain if due to functional UPJ obstruction or hydronephrosis, both resistivity indices are normal within both kidneys. His renal panel seems to be back at his baseline-likely stage 2. Continue to avoid nephrotoxic agents, monitor Is/Os, and daily labs. * Acute urinary retention. Had > 700 ml of urine residual after grey cath was placed in. No hx/o enlarged prostate. Will continue with grey cath until he is fully alert and awake. * Obesity Class II. Carries a BMI of 33.9. Runstitching Machine Operator consult for weight management. * Mild Proteinuria. This is likely due to his long standing hypertension. He was on hctz/lisinopril for maintenance medications. If no changes on his renal panel, we may be able to resume lisinopril in AM. 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 Findings on renal US. He has no back pain or acute urinary complaints. UA is clean for infection. Sodium, AG, and CO2 improved. No hematuria on catheter bag. VCUG is a consideration but would need contrast. Will obtain chart from PCP to check if he has chronic renal insufficiency. Abdominal CT scan report read as cortical cyst within the left kidney causing the questioned dilated renal pelvis on recent U/S. No hydronephrosis seen. No renal calculi or ureteral calculi seen. No additional management needed at this point. This can be followed up outpatient. * Fatty Liver infiltrate. Abnormal finding noted on Abdominal/Pelvis CT scan. This is likely due to chronic alcoholism. Runstitching Machine Operator's consult for proper diet. Will intellectual property counsel on LSM once fully alert and awake. * Mild Hypomagnesemia. This is 2/2 inadequate intake. We will replete and monitor. Resolved: * Hypovolemia Hyperosmolar Hyponatremia. This is likely due to etoh abuse and not able to eat of drink adequately. He is volume depleted. he comes in with a NA level of 133. Although this could be affected by his HCTZ and Zoloft he takes for maintenance medications. Resolved. Continue to hold HCTZ. * Increased AG Metabolic Acidosis. This is 2/2 ETOH Abuse. he is afebrile and no signs of systemic infection. Expect to improve with hydration. Resolved. * Hyperglycemia. He comes to us with BS level of 172. He carries no hx/o glucose intolerance or diabetes. Now back to normal range. * Transaminitis. He comes with AST and ALT levels of respectively. This is likely due to etoh abuse. Now back to normal range. * Mild Leukocytosis. This is likely due to stress. He is afebrile w/o signs of systemic infection. Afebrile and UA is negative. Now back to normal range. * Mild Thrombocytopenia. He comes in with an elevated platelet level of 493. This is due to chronic alcohol use. Now back to normal range. * Hypocalcemia. He came to us with an initial level of 8.1. Now resolved at 8.8. He had a small sandwich yesterday. Expect to improve once he is fully eating and drinking. Chronic: * HTN * HLD * GERD * Depression * Chronic Alcoholism Plan: Continue CIWAA protocol. Thiamine, folic acid and MVI. IV fluid for hydrat ion. Continue to avoid nephrotoxic agents. Regular diet. DVT/GI Prophylaxis. Continue 1:1. Tele-psych consult with Dr. Bagley when appropriate. SW/CM for discharge planning. Spoke to his this morning and updated her about his clinical progress. Critical care time spent: > 30 mins
[2019-11-05] MEDS: Sodium Chloride 0.9% 1,000 ML IV SCH ×2 (07:31→16:22)
[2019-11-05] MEDS: Metoprolol Succinate 50 MG Tab.ER PO SCH (07:59)
[2019-11-05] MEDS: Hydrochlorothiazide 12.5 MG Cap PO SCH (07:59)
[2019-11-05] MEDS: cloNIDine 0.1 MG Tab PO PRN ×3 (07:59→20:11)
[2019-11-05] MEDS: Lisinopril 20 MG Tab PO SCH (08:00)
[2019-11-05] MEDS: Pantoprazole 40 MG Tab.CR PO SCH (08:00)
[2019-11-05] MEDS: Topiramate 25 MG Tab PO SCH ×2 (08:00→23:41)
[2019-11-05] MEDS: Folic Acid 1 MG Tab PO SCH (21:36)
[2019-11-05] MEDS: Multivitamins,Therapeutic Tab PO SCH (21:36)
[2019-11-05] MEDS: Thiamine 100 MG Tab PO SCH (21:36)
[2019-11-05] MEDS: QUEtiapine 25 MG Tab PO SCH (23:41)
[2019-11-06] MEDS ORDERED: chlordiazePOXIDE 25 MG Cap PO SCH
[2019-11-06] MEDS: cloNIDine 0.1 MG Tab PO PRN ×2 (02:32→05:59)
[2019-11-06] MEDS: LORazepam 2 MG/ML SDV IVPUSH PRN ×2 (03:10→22:50)
[2019-11-06] MEDS: Sodium Chloride 0.9% 1,000 ML IV SCH ×2 (03:30→11:32)
[2019-11-06] MEDS ORDERED: Haloperidol Lactate 5 MG/ML SDV IVPUSH ONE (04:38)
[2019-11-06] MEDS: Heparin Sodium 5,000 Units/ML Vial SUBCUT SCH ×3 (04:55→21:30)
--- NOTE | 2019-11-06 06:12 | PCM.PN ---
- General Info Date of Service: 11/06/19 Admission Dx/Problem (Free Text): ETOH Withdrawal Subjective Update: 11/06/19: He had a rough night. Per night nurse, he was extreme;y confused and hallucinating. He ended up receiving a total of 3-4 mg of Ativan, Clonodine 0.1 mg x 3 and a one time dose of 5 mg Haldol. His CIWAA has been 8-9. 11/05/19: Patient is still in withdrawal. He is confused and having visual hallucinations. He has received haldol and ativan round the clock overnight. He ate a small piece of sandwich at about 5 PM but nothing last night. He is however awake but not fully alert and able to engage (i.e. talk ) this morning. Updated his about his clinical progress. His Mg is down to1.7 and his renal panel improved. His CIWAA is bet 9-15. 11/04/19: Patient detoxed hard last night. He was getting ativan round the clock starting at 11 pm. He is comfortably resting this morning. His CIWAA is bet 7- 10. His UA and UDS were negative. Functional Status: Reports: Pain Controlled, Tolerating Diet, Ambulating, Urinating - Review of Systems General: Denies: Fever, Chills HEENT: Reports: No Symptoms Pulmonary: Denies: Shortness of Breath Cardiovascular: Denies: Chest Pain Gastrointestinal: Denies: Abdominal Pain, Nausea, Vomiting Genitourinary: Reports: No Symptoms Musculoskeletal: Reports: No Symptoms Skin: Reports: No Symptoms Neurological: Reports: Confusion, Tremors, Gait Disturbance. Denies: Dizziness, Headache, Seizure, Syncope, Trouble Speaking, Weakness Psychiatric: Reports: Hallucinations. Denies: Agitation, Suicidal Ideation, Homicidal Ideation Systems Review Comment:: ROS obtained from nurse. He is currently sedated but arousable with spontaneous movements. - Patient Data Vitals - Most Recent: Last Vital Signs Temp 36.9 C 11/06/19 03:35 Pulse 85 11/06/19 03:35 Resp 14 11/06/19 03:35 BP 136/91 H 11/06/19 05:59 Pulse Ox 95 11/06/19 03:35 Weight - Most Recent: 101.877 kg I&O - Last 24 Hours: Intake & Output 07/11/05/19 11/06/19 14:59 22:59 06:59 Intake Total 120 1300 1939 Output Total 1250 400 975 Balance -1130 900 964 Lab Results Last 24 Hours: Laboratory Results - last 24 hr 11/05/19 Range/Units 04:10 Sodium 144 (136-145) mEq/L Potassium 3.6 (3.5-5.1) mEq/L Chloride 106 (98-107) mEq/L Carbon Dioxide 28 (21-32) mEq/L Anion Gap 13.6 (5-15) BUN 10 (7-18) mg/dL Creatinine 1.3 (0.7-1.3) mg/dL Est Cr Clr Drug Dosing 62.85 mL/min Estimated GFR (MDRD) 58 (>60) mL/min BUN/Creatinine Ratio 7.7 L (14-18) Glucose 87 (74-106) mg/dL Calcium 8.8 (8.5-10.1) mg/dL Magnesium 1.7 L (1.8-2.4) mg/dl Total Bilirubin 0.6 (0.2-1.0) mg/dL AST 29 (15-37) U/L ALT 46 (16-63) U/L Alkaline Phosphatase 67 (46-116) U/L Total Protein 7.0 (6.4-8.2) g/dl Albumin 3.0 L (3.4-5.0) g/dl Globulin 4.0 gm/dL Albumin/Globulin Ratio 0.8 L (1-2) Med Orders - Current: Current Medications Albuterol/Ipratropium (Duoneb 3.0-0.5 Mg/3 Ml) 3 ml NEB Q4H PRN PRN Reason: Shortness Of Breath/wheezing Bisacodyl (Dulcolax) 5 mg PO DAILY PRN PRN Reason: Constipation Clonidine HCl (Catapres) 0.1 mg PO Q4H PRN PRN Reason: Agitation Last Admin: 11/06/19 05:59 Dose: 0.1 mg Documented by: Docusate Sodium (Colace) 100 mg PO BID PRN PRN Reason: Constipation Folic Acid (Folic Acid) 1 mg PO BEDTIME FELICITA Last Admin: 11/05/19 21:36 Dose: 1 mg Documented by: Heparin Sodium (Porcine) (Heparin Sodium) 5,000 units SUBCUT Q8H [facility] Last Admin: 11/06/19 04:55 Dose: 5,000 units Documented by: Hydrochlorothiazide (Hydrochlorothiazide) 12.5 mg PO DAILY [facility] Last Admin: 11/05/19 07:59 Dose: 12.5 mg Documented by: Promethazine HCl 12.5 mg/ (Sodium Chloride) 50.5 mls @ 100 mls/hr IV Q6H PRN PRN Reason: Nausea/Vomiting Last Admin: 11/02/19 20:30 Dose: 100 mls/hr Documented by: Sodium Chloride (Normal Saline) 1,000 mls @ 100 mls/hr IV ASDIRECTED [facility] Last Admin: 11/06/19 03:30 Dose: 100 mls/hr Documented by: Lisinopril (Prinivil) 20 mg PO DAILY [facility] Last Admin: 11/05/19 08:00 Dose: 20 mg Documented by: Lorazepam (Ativan) 0 mg IVPUSH Q1H PRN; Protocol PRN Reason: Withdrawal Symptoms Last Admin: 11/06/19 03:10 Dose: 1 mg Documented by: Metoprolol Succinate (Toprol Xl) 50 mg PO DAILY [facility] Last Admin: 11/05/19 07:59 Dose: 50 mg Documented by: Metoprolol Tartrate (Lopressor) 5 mg IVPUSH Q4H PRN PRN Reason: Tachycardia Multivitamins (Thera) 1 each PO BEDTIME [facility] Last Admin: 11/05/19 21:36 Dose: 1 each Documented by: Ondansetron HCl (Zofran) 4 mg IV Q6H PRN PRN Reason: Nausea/Vomiting Pantoprazole Sodium (Protonix) 40 mg PO DAILY [facility] Last Admin: 11/05/19 08:00 Dose: 40 mg Documented by: Quetiapine Fumarate (Seroquel) 50 mg PO BEDTIME [facility] Last Admin: 11/05/19 23:41 Dose: Not Given Documented by: Senna/Docusate Sodium (Senna Plus) 1 tab PO BID PRN PRN Reason: Constipation Sodium Chloride (Saline Flush) 10 ml FLUSH ASDIRECTED PRN PRN Reason: Keep Vein Open Last Admin: 11/02/19 15:31 Dose: 10 ml Documented by: Thiamine HCl (Vitamin B-1) 100 mg PO BEDTIME [facility] Last Admin: 11/05/19 21:36 Dose: 100 mg Documented by: Topiramate (Topamax) 25 mg PO BID [facility] Last Admin: 11/05/19 23:41 Dose: Not Given Documented by: Discontinued Medications Chlordiazepoxide HCl (Librium) 75 mg PO ONETIME ONE Stop: 11/02/19 20:54 Last Admin: 11/02/19 20:57 Dose: 75 mg Documented by: Chlordiazepoxide HCl (Librium) 50 mg PO Q4H FELICITA Stop: 11/03/19 18:01 Last Admin: 11/03/19 02:31 Dose: Not Given Documented by: Chlordiazepoxide HCl (Librium) 50 mg PO Q6H FELICITA Stop: 11/04/19 18:01 Chlordiazepoxide HCl (Librium) 25 mg PO Q4H FELICITA Stop: 11/05/19 20:01 Chlordiazepoxide HCl (Librium) 25 mg PO Q6H FELICITA Stop: 11/06/19 18:01 Diphenhydramine HCl (Benadryl) 25 mg IVPUSH ONETIME ONE Stop: 11/02/19 19:02 Last Admin: 11/02/19 20:22 Dose: 25 mg Documented by: Diphenhydramine HCl (Benadryl) 25 mg IVPUSH ONETIME ONE Stop: 11/03/19 21:01 Last Admin: 11/03/19 20:51 Dose: 25 mg Documented by: Haloperidol Lactate (Haldol) 2 mg IM Q4H PRN PRN Reason: Agitation Last Admin: 11/04/19 23:55 Dose: 2 mg Documented by: Haloperidol Lactate (Haldol) 5 mg IVPUSH ONETIME ONE Stop: 11/06/19 04:39 Last Admin: 11/06/19 04:45 Dose: 5 mg Documented by: Sodium Chloride (Normal Saline) 1,000 mls @ 999 mls/hr IV ASDIRECTED FELICITA Last Admin: 11/02/19 15:29 Dose: 999 mls/hr Documented by: Sodium Chloride (Normal Saline) 1,000 mls @ 999 mls/hr IV ASDIRECTED FELICITA Last Admin: 11/02/19 17:29 Dose: 999 mls/hr Documented by: Dextrose/Sodium Chloride (Dextrose 5%-1/2 Ns) 1,000 mls @ 100 mls/hr IV ASDIRECTED FELIC[facility] Last Admin: 11/02/19 23:23 Dose: 100 mls/hr Documented by: Sodium Chloride (Normal Saline) 1,000 mls @ 50 mls/hr IV ASDIRECTED [facility] Magnesium Sulfate/Dextrose 1 (gm/ Premix) 100 mls @ 100 mls/hr IV ONETIME ONE Stop: 11/05/19 08:13 Last Admin: 11/05/19 07:30 Dose: 100 mls/hr Documented by: Lorazepam (Ativan) 0 mg IVPUSH Q20M PRN; Protocol PRN Reason: Withdrawal Symptoms Last Admin: 11/02/19 21:22 Dose: 2 mg Documented by: Lorazepam (Ativan) 0 mg IVPUSH Q2H PRN; Protocol PRN Reason: Withdrawal Symptoms Lorazepam (Ativan) 0 mg IVPUSH Q20M PRN; Protocol PRN Reason: Withdrawal Symptoms Last Admin: 11/03/19 08:31 Dose: 2 mg Documented by: Multivitamins (Thera) 1 each PO BEDTIME [facility] Last Admin: 11/04/19 21:39 Dose: Not Given Documented by: Ondansetron HCl (Zofran) 4 mg IVPUSH ONETIME ONE Stop: 11/02/19 15:18 Last Admin: 11/02/19 15:29 Dose: 4 mg Documented by: - Exam General: No Acute Distress, Other (Awake) HEENT: Pupils Equal, Pupils Reactive, Mucous Membr. Moist/[place] Neck: Supple Lungs: Clear to Auscultation, Normal Respiratory Effort, Decreased Breath Sounds Cardiovascular: Regular Rate, Regular Rhythm GI/Abdominal Exam: Normal Bowel Sounds, Soft, Non-Tender, No Organomegaly, No Distention, No Mass, Tender (Male) Exam: Deferred Back Exam: Normal Inspection, Decreased Range of Motion Extremities: Normal Inspection, Non-Tender, No Pedal Edema, Normal Capillary Refill Peripheral Pulses: 2+: Dorsalis Pedis (L), Dorsalis Pedis (R) Skin: Warm, Dry, Intact Neurological: Other (not appropraite due to sedation but arousable) Psy/Mental Status: Hallucinations, Withdrawal Symptoms. No: Suicidal Ideation, Homicidal Ideation Sepsis Event Note - Evaluation Sepsis Screening Result: No Definite Risk - Focused Exam Vital Signs: Vital Signs Temp Pulse Pulse Resp BP BP Pulse Ox 11/06/19 05:59 136/91 H 07/19/20 03:35 36.9 C 85 14 136/91 H 95 11/06/19 03:00 90 95 11/06/19 02:32 132/84 11/06/19 02:30 82 96 11/06/19 02:00 85 96 11/06/19 01:30 91 96 11/06/19 01:00 81 94 L 11/06/19 00:31 83 97 11/06/19 00:00 84 100 11/05/19 23:37 36.6 C 86 86 12 134/87 134/87 97 11/05/19 23:36 86 98 11/05/19 23:35 86 135/112 H 98 11/05/19 23:34 84 97 11/05/19 23:30 81 100 11/05/19 23:00 84 96 11/05/19 22:49 87 94 L 11/05/19 21:08 89 95 11/05/19 20:51 92 165/106 H 96 11/05/19 20:50 90 95 11/05/19 20:11 160/133 H 11/05/19 20:01 160/133 H 11/05/19 20:00 37.1 C 88 18 165/106 H 98 Date Exam was Performed: 11/06/19 Time Exam was Performed: 19:23 - Problem List Review Problem List Initiated/Reviewed/Updated: Yes - My Orders Last 24 Hours: My Active Orders 11/05/19 17:52 OT Evaluation and Treatment [CONS] Routine PT Evaluation and Treatment [CONS] Routine 11/05/19 17:54 Consult to Speech Language Pathology [TIRE RECAPPER Evaluation and Treatment] [CONS] Routine 11/07/19 05:11 BMP [BASIC METABOLIC PANEL,BMP] [CHEM] AM MG [MAGNESIUM] [CHEM] AM 11/07/19 07:00 CBC W/O DIFF,HEMOGRAM [HEME] MOTH@69911/10/19 07:00 CBC W/O DIFF,HEMOGRAM [HEME] MOTH@69911/14/19 07:00 CBC W/O DIFF,HEMOGRAM [HEME] MOTH@69911/17/19 07:00 CBC W/O DIFF,HEMOGRAM [HEME] MOTH@69911/21/19 07:00 CBC W/O DIFF,HEMOGRAM [HEME] MOTH@69911/24/19 07:00 CBC W/O DIFF,HEMOGRAM [HEME] MOTH@0700 - Plan Plan:: This is a 54 yo white male with past medical hx/o chronic alcoholism, hypertension, hyperlipidemia, GERD, and depression who was brought in by his due to acute confusion with withdrawal symptoms. Assessment: Acute: * Delirium Tremens/Withdrawal Symptoms. He carries a hx/o chronic alcoholism. He is not very forth coming and it appears he hides his drinking from his family. he drinks hard liquor. His found 1.25L of Vodka. Per family, his drinking has gotten out of hand since April. HAd a rough night last night. He was apparently aggressive. CIWA is score is bet 8-9. Goal to utilize clonidine and benzo. Will resume Seroquel and Topamax tonight for maintenance. * Acute confusion 2/2 metabolic/toxic encephalopathy. Has abnormal e-lytes and UA/UDS pending. Head CT scan and Brain MRI done in ED are both negative for acute abnormal findings. This could be mainly to alcohol abuse. He was extremely confused last night. We will continue monitor. * Acute urinary retention. Had > 700 ml of urine residual after grey cath was placed in. No hx/o enlarged prostate. Will continue with grey cath until he is fully alert and awake. Not ready to remove. * Obesity Class II. Carries a BMI of 33.9. Title I Math Tutor consult for weight management. * Mild Proteinuria. This is likely due to his long standing hypertension. He was on hctz/lisinopril for maintenance medications. If no changes on his renal panel, we may be able to resume lisinopril in AM. 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 Findings on renal US. He has no back pain or acute urinary complaints. UA is clean for infection. Sodium, AG, and CO2 improved. No hematuria on catheter bag. VCUG is a consideration but would need contrast. Will obtain chart from PCP to check if he has chronic renal insufficiency. Abdominal CT scan report read as cortical cyst within the left kidney causing the questioned dilated renal pelvis on recent U/S. No hydronephrosis seen. No renal calculi or ureteral calculi seen. No additional management needed at this point. This can be followed up outpatient. * Fatty Liver infiltrate. Abnormal finding noted on Abdominal/Pelvis CT scan. This is likely due to chronic alcoholism. Title I Math Tutor's consult for proper diet. Will personal financial counselor on LSM once fully alert and awake. * Mild Hypomagnesemia. This is 2/2 inadequate intake. We will continue to replete and monitor. Resolved: * Hypovolemia Hyperosmolar Hyponatremia. This is likely due to etoh abuse and not able to eat of drink adequately. He is volume depleted. he comes in with a NA level of 133. Although this could be affected by his HCTZ and Zoloft he takes for maintenance medications. Resolved. Continue to hold HCTZ. * Increased AG Metabolic Acidosis. This is 2/2 ETOH Abuse. he is afebrile and no signs of systemic infection. Expect to improve with hydration. Resolved. * Hyperglycemia. He comes to us with BS level of 172. He carries no hx/o glucose intolerance or diabetes. Now back to normal range. * Transaminitis. He comes with AST and ALT levels of respectively. This is l ikely due to etoh abuse. Now back to normal range. * Mild Leukocytosis. This is likely due to stress. He is afebrile w/o signs of systemic infection. Afebrile and UA is negative. Now back to normal range. * Mild Thrombocytopenia. He comes in with an elevated platelet level of 493. This is due to chronic alcohol use. Now back to normal range. * Hypocalcemia. He came to us with an initial level of 8.1. Now resolved at 8.8. He had a small sandwich yesterday. Expect to improve once he is fully eating and drinking. * Acute on chronic CKD, unknown stage. This is likely 2/2 volume depletion and dehydration from etoh abuse. No previous level for comparison. He comes in with a CR of 2.6 with a BUN of 49. So far he has received 2L of NS in ED. It appears he might have an underlying CKD. Had D5-1/2 NS overnight. We will switch to 1L NS at 100/hr. Renal U/S report read as dilated left renal pelvis: uncertain if due to functional UPJ obstruction or hydronephrosis, both resistivity indices are normal within both kidneys. His renal panel seems to be back at his baseline-likely stage 2. Chronic: * HTN * HLD * GERD * Depression * Chronic Alcoholism Plan: Continue CIWAA protocol. Thiamine, folic acid and MVI. IV fluid for hydration. Regular diet. DVT/GI Prophylaxis. Resume 1:1. Tele-psych consult with Dr. Bagley when appropriate. SW/CM for discharge planning. Spoke to his this morning and updated her about his clinical progress. Critical care time spent: > 20 mins
[2019-11-06] MEDS ORDERED: Magnesium Sulfate/Water 2 GM in Premix Bag 1 BAG IV ONE (06:13)
[2019-11-06] MEDS ORDERED: Loperamide 2 MG Cap PO ONE (07:25)
[2019-11-06] MEDS: Hydrochlorothiazide 12.5 MG Cap PO SCH (08:17)
[2019-11-06] MEDS: Pantoprazole 40 MG Tab.CR PO SCH (08:18)
[2019-11-06] MEDS: Lisinopril 20 MG Tab PO SCH (08:18)
[2019-11-06] MEDS: Metoprolol Succinate 50 MG Tab.ER PO SCH (08:18)
[2019-11-06] MEDS: Topiramate 25 MG Tab PO SCH ×2 (08:19→21:34)
[2019-11-06] MEDS ORDERED: QUEtiapine 25 MG Tab PO ONE (09:00)
[2019-11-06] MEDS ORDERED: Sodium Chloride 0.9% 10 ML Syringe FLUSH PRN (17:51)
[2019-11-06] MEDS ORDERED: Acetaminophen 325 MG Tab PO PRN (21:21)
[2019-11-06] MEDS: QUEtiapine 25 MG Tab PO SCH (21:34)
[2019-11-06] MEDS: Folic Acid 1 MG Tab PO SCH (21:34)
[2019-11-06] MEDS: Docusate Sodium 100 MG Cap PO PRN (21:34)
[2019-11-06] MEDS: Multivitamins,Therapeutic Tab PO SCH (21:34)
[2019-11-06] MEDS: Thiamine 100 MG Tab PO SCH (21:34)
[2019-11-07] MEDS: Heparin Sodium 5,000 Units/ML Vial SUBCUT SCH ×2 (06:10→12:36)
--- NOTE | 2019-11-07 06:53 | PCM.PN ---
- General Info Date of Service: 11/07/19 Admission Dx/Problem (Free Text): ETOH Withdrawal Subjective Update: 11/07/19: He slept well and had an uneventful night. 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 He had not signs of ongoing infection. No chills, no cough, or signs of upper respiratory infection. No dysuria. 11/06/19: He had a rough night. Per night nurse, he was extreme;y confused and hallucinating. He ended up receiving a total of 3-4 mg of Ativan, Clonodine 0.1 mg x 3 and a one time dose of 5 mg Haldol. His CIWAA has been 8-9. 11/05/19: Patient is still in withdrawal. He is confused and having visual hallucinations. He has received haldol and ativan round the clock overnight. He ate a small piece of sandwich at about 5 PM but nothing last night. He is however awake but not fully alert and able to engage (i.e. talk ) this morning. Updated his about his clinical progress. His Mg is down to1.7 and his renal panel improved. His CIWAA is bet 9-15. 11/04/19: Patient detoxed hard last night. He was getting ativan round the clock starting at 11 pm. He is comfortably resting this morning. His CIWAA is bet 7- 10. His UA and UDS were negative. Functional Status: Reports: Pain Controlled, Tolerating Diet, Ambulating, Urinating - Review of Systems General: Reports: Fever. Denies: Chills HEENT: Reports: No Symptoms Pulmonary: Denies: Shortness of Breath Cardiovascular: Denies: Chest Pain, Dyspnea on Exertion, Lightheadedness Gastrointestinal: Denies: Abdominal Pain, Nausea, Vomiting Genitourinary: Reports: No Symptoms Musculoskeletal: Reports: No Symptoms Neurological: Denies: Seizure, Tremors, Trouble Speaking, Difficulty Walking Psychiatric: Reports: No Symptoms, Confusion. Denies: Depression, Anxiety, Agitation, Hallucinations, Suicidal Ideation, Homicidal Ideation - Patient Data Vitals - Most Recent: Last Vital Signs Temp 37.1 C 11/07/19 04:34 Pulse 88 11/07/19 04:34 Resp 24 H 11/07/19 04:34 BP 128/79 11/07/19 04:34 Pulse Ox 99 11/07/19 04:34 Weight - Most Recent: 101.605 kg I&O - Last 24 Hours: Intake & Output 11/06/19 11/06/19 11/07/19 14:59 22:59 06:59 Intake Total 1500 800 Output Total 750 1175 700 Balance -750 325 100 Lab Results Last 24 Hours: Laboratory Results - last 24 hr 11/07/19 11/07/19 Range/Units 04:55 04:55 WBC 9.66 H (4.23-9.07) K/mm3 RBC 5.12 (4.63-6.08) M/mm3 Hgb 14.2 (13.7-17.5) gm/dl Hct 43.2 (40.1-51.0) % MCV 84.4 (79.0-92.2) fl MCH 27.7 (25.7-32.2) pg MCHC 32.9 (32.2-35.5) g/dl RDW Std Deviation 42.2 (35.1-43.9) fL Plt Count 263 (163-337) K/mm3 MPV 8.4 L (9.4-12.3) fl Sodium 141 (136-145) mEq/L Potassium 4.0 (3.5-5.1) mEq/L Chloride 103 (98-107) mEq/L Carbon Dioxide 27 (21-32) mEq/L Anion Gap 15.0 (5-15) BUN 12 (7-18) mg/dL Creatinine 0.9 (0.7-1.3) mg/dL Est Cr Clr Drug Dosing 90.78 mL/min Estimated GFR (MDRD) > 60 (>60) mL/min BUN/Creatinine Ratio 13.3 L (14-18) Glucose 85 (74-106) mg/dL Calcium 9.1 (8.5-10.1) mg/dL Magnesium 2.1 (1.8-2.4) mg/dl Med Orders - Current: Current Medications Acetaminophen (Tylenol) 650 mg PO Q6HR PRN PRN Reason: Pain/Fever Last Admin: 11/06/19 21:44 Dose: 650 mg Documented by: Albuterol/Ipratropium (Duoneb 3.0-0.5 Mg/3 Ml) 3 ml NEB Q4H PRN PRN Reason: Shortness Of Breath/wheezing Bisacodyl (Dulcolax) 5 mg PO DAILY PRN PRN Reason: Constipation Clonidine HCl (Catapres) 0.1 mg PO Q4H PRN PRN Reason: Agitation Last Admin: 11/06/19 05:59 Dose: 0.1 mg Documented by: Docusate Sodium (Colace) 100 mg PO BID PRN PRN Reason: Constipation Last Admin: 11/06/19 21:34 Dose: 100 mg Documented by: Folic Acid (Folic Acid) 1 mg PO BEDTIME [facility] Last Admin: 11/06/19 21:34 Dose: 1 mg Documented by: Heparin Sodium (Porcine) (Heparin Sodium) 5,000 units SUBCUT Q8H [facility] Last Admin: 11/07/19 06:10 Dose: 5,000 units Documented by: Hydrochlorothiazide (Hydrochlorothiazide) 12.5 mg PO DAILY [facility] Last Admin: 11/06/19 08:17 Dose: 12.5 mg Documented by: Promethazine HCl 12.5 mg/ (Sodium Chloride) 50.5 mls @ 100 mls/hr IV Q6H PRN PRN Reason: Nausea/Vomiting Last Admin: 11/02/19 20:30 Dose: 100 mls/hr Documented by: Lisinopril (Prinivil) 20 mg PO DAILY [facility] Last Admin: 11/06/19 08:18 Dose: 20 mg Documented by: Lorazepam (Ativan) 0 mg IVPUSH Q1H PRN; Protocol PRN Reason: Withdrawal Symptoms Last Admin: 11/06/19 22:50 Dose: 1 mg Documented by: Metoprolol Succinate (Toprol Xl) 50 mg PO DAILY [facility] Last Admin: 11/06/19 08:18 Dose: 50 mg Documented by: Metoprolol Tartrate (Lopressor) 5 mg IVPUSH Q4H PRN PRN Reason: Tachycardia Multivitamins (Thera) 1 each PO BEDTIME [facility] Last Admin: 11/06/19 21:34 Dose: 1 each Documented by: Ondansetron HCl (Zofran) 4 mg IV Q6H PRN PRN Reason: Nausea/Vomiting Pantoprazole Sodium (Protonix) 40 mg PO DAILY [facility] Last Admin: 11/06/19 08:18 Dose: 40 mg Documented by: Quetiapine Fumarate (Seroquel) 50 mg PO BEDTIME [facility] Last Admin: 11/06/19 21:34 Dose: 50 mg Documented by: Senna/Docusate Sodium (Senna Plus) 1 tab PO BID PRN PRN Reason: Constipation Last Admin: 11/06/19 21:46 Dose: 1 tab Documented by: Sodium Chloride (Saline Flush) 10 ml FLUSH ASDIRECTED PRN PRN Reason: Keep Vein Open Last Admin: 11/02/19 15:31 Dose: 10 ml Documented by: Sodium Chloride (Saline Flush) 10 ml FLUSH ASDIRECTED PRN PRN Reason: Keep Vein Open Thiamine HCl (Vitamin B-1) 100 mg PO BEDTIME [facility] Last Admin: 11/06/19 21:34 Dose: 100 mg Documented by: Topiramate (Topamax) 25 mg PO BID [facility] Last Admin: 11/06/19 21:34 Dose: 25 mg Documented by: Discontinued Medications Chlordiazepoxide HCl (Librium) 75 mg PO ONETIME ONE Stop: 11/02/19 20:54 Last Admin: 11/02/19 20:57 Dose: 75 mg Documented by: Chlordiazepoxide HCl (Librium) 50 mg PO Q4H [facility] Stop: 11/03/19 18:01 Last Admin: 11/03/19 02:31 Dose: Not Given Documented by: Chlordiazepoxide HCl (Librium) 50 mg PO Q6H [facility] Stop: 11/04/19 18:01 Chlordiazepoxide HCl (Librium) 25 mg PO Q4H [facility] Stop: 11/05/19 20:01 Chlordiazepoxide HCl (Librium) 25 mg PO Q6H [facility] Stop: 11/06/19 18:01 Diphenhydramine HCl (Benadryl) 25 mg IVPUSH ONETIME ONE Stop: 11/02/19 19:02 Last Admin: 11/02/19 20:22 Dose: 25 mg Documented by: Diphenhydramine HCl (Benadryl) 25 mg IVPUSH ONETIME ONE Stop: 11/03/19 21:01 Last Admin: 11/03/19 20:51 Dose: 25 mg Documented by: Haloperidol Lactate (Haldol) 2 mg IM Q4H PRN PRN Reason: Agitation Last Admin: 11/04/19 23:55 Dose: 2 mg Documented by: Haloperidol Lactate (Haldol) 5 mg IVPUSH ONETIME ONE Stop: 11/06/19 04:39 Last Admin: 11/06/19 04:45 Dose: 5 mg Documented by: Sodium Chloride (Normal Saline) 1,000 mls @ 999 mls/hr IV ASDIRECTED [facility] Last Admin: 11/02/19 15:29 Dose: 999 mls/hr Documented by: Sodium Chloride (Normal Saline) 1,000 mls @ 999 mls/hr IV ASDIRECTED [facility] Last Admin: 11/02/19 17:29 Dose: 999 mls/hr Documented by: Dextrose/Sodium Chloride (Dextrose 5%-1/2 Ns) 1,000 mls @ 100 mls/hr IV ASDIRECTED [facility] Last Admin: 11/02/19 23:23 Dose: 100 mls/hr Documented by: Sodium Chloride (Normal Saline) 1,000 mls @ 50 mls/hr IV ASDIRECTED [facility] Sodium Chloride (Normal Saline) 1,000 mls @ 100 mls/hr IV ASDIRECTED [facility] Last Admin: 11/06/19 11:32 Dose: 100 mls/hr Documented by: Magnesium Sulfate/Dextrose 1 (gm/ Premix) 100 mls @ 100 mls/hr IV ONETIME ONE Stop: 11/05/19 08:13 Last Admin: 11/05/19 07:30 Dose: 100 mls/hr Documented by: Magnesium Sulfate 2 gm/ Premix 50 mls @ 25 mls/hr IV ONETIME ONE Stop: 11/06/19 08:12 Last Admin: 11/06/19 06:42 Dose: 25 mls/hr Documented by: Loperamide HCl (Imodium) 4 mg PO ONETIME ONE Stop: 11/06/19 07:26 Last Admin: 11/06/19 08:17 Dose: 4 mg Documented by: Lorazepam (Ativan) 0 mg IVPUSH Q20M PRN; Protocol PRN Reason: Withdrawal Symptoms Last Admin: 11/02/19 21:22 Dose: 2 mg Documented by: Lorazepam (Ativan) 0 mg IVPUSH Q2H PRN; Protocol PRN Reason: Withdrawal Symptoms Lorazepam (Ativan) 0 mg IVPUSH Q20M PRN; Protocol PRN Reason: Withdrawal Symptoms Last Admin: 11/03/19 08:31 Dose: 2 mg Documented by: Multivitamins (Thera) 1 each PO BEDTIME [facility] Last Admin: 11/04/19 21:39 Dose: Not Given Documented by: Ondansetron HCl (Zofran) 4 mg IVPUSH ONETIME ONE Stop: 11/02/19 15:18 Last Admin: 11/02/19 15:29 Dose: 4 mg Documented by: Quetiapine Fumarate (Seroquel) 50 mg PO ONETIME ONE Stop: 11/06/19 09:01 Last Admin: 11/06/19 08:17 Dose: 50 mg Documented by: - Exam General: Alert, Oriented, Cooperative, No Acute Distress HEENT: Pupils Equal, Pupils Reactive, EOMI, Mucous Membr. Moist/[place] Neck: Supple Lungs: Clear to Auscultation, Normal Respiratory Effort Cardiovascular: Regular Rate, Regular Rhythm GI/Abdominal Exam: Normal Bowel Sounds, Soft, Non-Tender, No Organomegaly, No Distention, No Abnormal Bruit, Other (Obese) (Male) Exam: Deferred Back Exam: Normal Inspection, Decreased Range of Motion Extremities: Normal Inspection, Normal Range of Motion, Non-Tender, No Pedal Edema, Normal Capillary Refill Peripheral Pulses: 2+: Dorsalis Pedis (L), Dorsalis Pedis (R) Skin: Warm, Dry, Intact Neurological: No New Focal Deficit. No: Normal Gait Psy/Mental Status: Alert, Normal Affect, Normal Mood Sepsis Event Note - Evaluation Sepsis Screening Result: No Definite Risk - Focused Exam Vital Signs: Vital Signs Temp Temp Pulse Resp BP Pulse Ox 11/07/19 04:34 37.1 C 88 24 H 128/79 99 11/07/19 02:33 36.8 C 11/07/19 01:34 76 95 11/06/19 23:19 36.7 C 93 20 129/79 96 11/06/19 22:40 37.4 C 11/06/19 21:44 37.7 C 11/06/19 21:17 37.8 C 89 24 H 125/74 96 Date Exam was Performed: 11/07/19 Time Exam was Performed: 17:26 - Problem List Review Problem List Initiated/Reviewed/Updated: Yes - My Orders Last 24 Hours: My Active Orders 11/06/19 17:50 Patient Status [ADT] Routine 11/06/19 17:51 Sodium Chloride 0.9% [Saline Flush] 10 ml FLUSH ASDIRECTED PRN Convert IV to Saline Lock [OM.PC] Stat 11/06/19 21:00 DC Grey Catheter [Urinary Catheter Removal] [RC] PER UNIT ROUTINE 11/10/19 07:00 CBC W/O DIFF,HEMOGRAM [HEME] MOTH@0700 11/14/19 07:00 CBC W/O DIFF,HEMOGRAM [HEME] MOTH@0700 11/17/19 07:00 CBC W/O DIFF,HEMOGRAM [HEME] MOTH@69911/21/19 07:00 CBC W/O DIFF,HEMOGRAM [HEME] MOTH@0711/24/19 07:00 CBC W/O DIFF,HEMOGRAM [HEME] MOTH@0700 - Plan Plan:: This is a 54 yo white male with past medical hx/o chronic alcoholism, hypertension, hyperlipidemia, GERD, and depression who was brought in by his due to acute confusion with withdrawal symptoms. Assessment: Acute: * Delirium Tremens/Withdrawal Symptoms. He carries a hx/o chronic alcoholism. He is not very forth coming and it appears he hides his drinking from his family. he drinks hard liquor. His found 1.25L of Vodka. Per family, his drinking has gotten out of hand since April. HAd a rough night last night. He was apparently aggressive. CIWAA is mld-moderate at this point. Continue Seroquel and Topamax tonight for maintenance. * Acute confusion 2/2 metabolic/toxic encephalopathy. Has abnormal e-lytes and UA/UDS pending. Head CT scan and Brain MRI done in ED are both negative for acute abnormal findings. This could be mainly to alcohol abuse. He is way much better cognitive verma. We will continue monitor. * Acute urinary retention. Had > 700 ml of urine residual after grey cath was placed in. No hx/o enlarged prostate. Will continue with grey cath until he is fully alert and awake. Not ready to remove. Grey cath was removed yesterday. No issues with voiding. * Obesity Class II. Carries a BMI of 33.9. Electrical Technology Instructor consult for weight management. * Mild Proteinuria. This is likely due to his long standing hypertension. He was on hctz/lisinopril for maintenance medications. If no changes on his renal p cameron, we may be able to resume lisinopril in AM. 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 Findings on renal US. He has no back pain or acute urinary complaints. UA is clean for in fection. Sodium, AG, and CO2 improved. No hematuria on catheter bag. VCUG is a consideration but would need contrast. Will obtain chart from PCP to check if he has chronic renal insufficiency. Abdominal CT scan report read as cortical cyst within the left kidney causing the questioned dilated renal pelvis on recent U/S. No hydronephrosis seen. No renal calculi or ureteral calculi seen. No additional management needed at this point. This can be followed up outpatient. * Fatty Liver infiltrate. Abnormal finding noted on Abdominal/Pelvis CT scan. This is likely due to chronic alcoholism. Electrical Technology Instructor's consult for proper diet. Will hiv counselor on LSM once fully alert and awake. Resolved: * Hypovolemia Hyperosmolar Hyponatremia. This is likely due to etoh abuse and not able to eat of drink adequately. He is volume depleted. he comes in with a NA level of 133. Although this could be affected by his HCTZ and Zoloft he takes for maintenance medications. Resolved. Continue to hold HCTZ. * Increased AG Metabolic Acidosis. This is 2/2 ETOH Abuse. he is afebrile and no signs of systemic infection. Expect to improve with hydration. Resolved. * Hyperglycemia. He comes to us with BS level of 172. He carries no hx/o glucose intolerance or diabetes. Now back to normal range. * Transaminitis. He comes with AST and ALT levels of respectively. This is likely due to etoh abuse. Now back to normal range. * Mild Leukocytosis. This is likely due to stress. He is afebrile w/o signs of systemic infection. Afebrile and UA is negative. Now back to normal range. * Mild Thrombocytopenia. He comes in with an elevated platelet level of 493. This is due to chronic alcohol use. Now back to normal range. * Hypocalcemia. He came to us with an initial level of 8.1. Now resolved at 8.8. He had a small sandwich yesterday. Expect to improve once he is fully eating and drinking. * Acute on chronic CKD, unknown stage. This is likely 2/2 volume depletion and dehydration from etoh abuse. No previous level for comparison. He comes in with a CR of 2.6 with a BUN of 49. So far he has received 2L of NS in ED. It appears he might have an underlying CKD. Had D5-1/2 NS overnight. We will switch to 1L NS at 100/hr. Renal U/S report read as dilated left renal pelvis: uncertain if due to functional UPJ obstruction or hydronephrosis, both resistivity indices are normal within both kidneys. His renal panel seems to be back at his baseline-likely stage 2. * Mild Hypomagnesemia. This is 2/2 inadequate intake. He is now within normal range. * Non-specific fever. We will monitor. Chronic: * HTN * HLD * GERD * Depression * Chronic Alcoholism Plan: Continue CIWAA protocol. Thiamine, folic acid and MVI. IV fluid for hydration. Regular diet. DVT/GI Prophylaxis. Off 1:1 for now. Fall precautions. Tele-psych consult with Dr. Bagley today. SANDEE/KIAH for discharge planning. Again updated his about his much improved clinical status. Discharge pending psych consult and placement to chemical rehab. We may consider 24hr hold in case he changes his mind.
[2019-11-07] MEDS: Pantoprazole 40 MG Tab.CR PO SCH (08:34)
[2019-11-07] MEDS: Hydrochlorothiazide 12.5 MG Cap PO SCH (08:35)
[2019-11-07] MEDS: Topiramate 25 MG Tab PO SCH ×3 (08:35→22:13)
[2019-11-07] MEDS: Lisinopril 20 MG Tab PO SCH (08:37)
[2019-11-07] MEDS: Metoprolol Succinate 50 MG Tab.ER PO SCH (08:37)
[2019-11-07] MEDS: FLUoxetine 20 MG Cap PO SCH (16:57)
[2019-11-07] MEDS ORDERED: LORazepam 2 MG/ML SDV IVPUSH ONE ×2 (17:00→18:27)
[2019-11-07] MEDS: QUEtiapine 25 MG Tab PO SCH ×2 (19:33→22:13)
[2019-11-07] MEDS: Multivitamins,Therapeutic Tab PO SCH ×2 (19:34→22:13)
[2019-11-07] MEDS: Folic Acid 1 MG Tab PO SCH ×2 (19:34→22:13)
[2019-11-07] MEDS: Thiamine 100 MG Tab PO SCH ×2 (19:35→22:13)
[2019-11-07] MEDS: LORazepam 2 MG/ML SDV IVPUSH PRN (21:31)
--- NOTE | 2019-11-07 23:24 | CONS ---
CONSULTING PHYSICIAN: Alexandro Bagley MD DATE OF CONSULTATION: 11/07/2019 Site where the services are provided are [facility] in [place], [place]. Site where the services are provided from our offices in [facility]. Length of service for this 60-minute inpatient telemedicine event is 60 minutes. IDENTIFICATION: The patient is a 54-year-old male who was admitted to the inpatient MICU at [facility] in [place], [place]. He is seen for psychiatric consultation per the request of staff attending, Dr. Reaves, and his treatment team. CHIEF COMPLAINT: "Relapse." HISTORY OF PRESENT ILLNESS: The patient is a 54-year-old male who was admitted to the inpatient MICU at [facility] in [place], [place], on 11/02/2019 for signs and symptoms of alcohol withdrawal. The patient is seen with his mother present and she also participates in the interview and states "he has been drinking heavily since ." The patient states that he relapsed after about 3 years of sobriety and he states he has been drinking "a lot," but cannot be more specific than that, though he does note that he has been drinking "hard liquor." The patient's mother also states that "I think he has been quite depressed," and the patient agrees with this assessment. 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 I don't want anyone else to take it over. I feel responsible" for those accounts. The patient had been taking Zoloft apparently, but when asked about this, he states that he does not think he has been taking it to regular. The patient's mother states that the patient has been on Prozac in the past and neither of them are sure if it really helped or not because "it was a long time ago." The patient denies any suicide or homicide. He denies any psychotic, delusional, or paranoid symptoms. He denies any other illicit substance use complicating his clinical picture at this point in time. MEDICATIONS: At admission, Zoloft 50 mg daily was listed, but the patient denies he has been taking this medication recently. ALLERGIES: No known drug allergies. PAST MEDICAL HISTORY: Signs and symptoms of alcohol withdrawal. REVIEW OF SYSTEMS: Aside from neuro, all other major organ systems are negative at this point in time for acute difficulties or complications. FAMILY PSYCHIATRIC AND CD HISTORY: The patient reports father had a history of alcohol. PAST PSYCHIATRIC AND CD HISTORY: The patient denies any previous psychiatric hospitalizations, but does report being in chemical dependency treatments in the past, but does not report how many, stating "a few." He denies any exposure to AA in the past. PAST PSYCHIATRIC MEDICATION HISTORY: Includes Prozac. Primary MD is Dr. Townsend on an outpatient basis. SOCIAL HISTORY: The patient is born and raised in [place], [place]. He is an lead accountant by profession. His is a pharmacist. He has 4 children and 1 grandson. He lives in [place], and he is [employer] in terms of his nani formation. MENTAL STATUS EXAM: The patient is a 54-year-old white male in no apparent distress. Speech is of regular rate and rhythm. The patient is cognitively oriented to person and place, but not to date. There are no abnormal motor movements or tics observed. Gait and station are not observed. This patient is lying in bed during the inpatient consult. Mood is depressed. Affect is consistent with stated mood and restricted and does become tearful at times throughout the course of the interview. There is no behavioral or stated evidence of acute suicidal or homicidal ideation or acute psychotic, delusional, or paranoid symptoms. Thought processes are significant for some thought blocking as well as reported racing thoughts and ruminations. There are no manic symptoms or loose associations evident. Judgment and insight still do appear impaired at this point secondary to the severity of the patient's alcohol use and alcohol withdrawal that he is experiencing at this point in time. Motivation for help is fair. VITALS: At time of presentation, 153/98, 92, 18, 98.4 degrees. IMPRESSION: [place] I: 1. Alcohol dependence, F10.20. 2. Major depressive disorder, severe, F32.2. 3. Anxiety disorder, not otherwise specified, F41.9. 4. Rule out generalized anxiety disorder. 5. Rule out bipolar affective disease, mixed type. [place] II: None. [place] III: Signs and symptoms of alcohol withdrawal. [place] IV: Severe. [place] V: 55. PLAN: 1. Sobriety. 2. Discontinue Zoloft. 3. Folic acid supplementation while on unit. 4. Thiamine supplementation while on unit. 5. Ativan per CIWA protocol while on unit. 6. Continue Topamax 25 mg b.i.d. as currently prescribed for mood stability, anxiety reduction, and seizure prophylaxis. 7. Continue Seroquel 50 mg at bedtime for clarity of thought, mood stability, sleep initiation and maintenance, anxiety reduction, and elimination of any psychotic or paranoid symptoms. 8. Begin trial of Prozac 20 mg daily to help with symptoms of depression. 9. Recommend that AA visit the patient while on unit. 10.Pastoral guidance. 11.Recommend that when the patient is medically stabilized that he be transferred to inpatient CD treatment to help with his alcohol dependence in terms of helping him attain sustained sobriety. 12.Recommend that the patient follow up with Outpatient Psychiatry when he completes CD treatment to assess his overall function and efficacy of his newly initiated psychiatric medication regimen. 13.We will continue follow up with the patient on an as-needed basis while he remains on the inpatient unit at [facility] in [place], [place]. 14.We will follow up with the patient sooner if there are any complications in the interim. 15.Crisis plan is in place. HECTOR /[id number]
[2019-11-08] MEDS: Heparin Sodium 5,000 Units/ML Vial SUBCUT SCH ×4 (06:23→20:40)
[2019-11-08] MEDS: Lisinopril 20 MG Tab PO SCH (09:30)
[2019-11-08] MEDS: FLUoxetine 20 MG Cap PO SCH (09:31)
[2019-11-08] MEDS: Metoprolol Succinate 50 MG Tab.ER PO SCH (09:31)
[2019-11-08] MEDS: Hydrochlorothiazide 12.5 MG Cap PO SCH (09:31)
[2019-11-08] MEDS: Topiramate 25 MG Tab PO SCH ×2 (09:32→20:38)
[2019-11-08] MEDS: Pantoprazole 40 MG Tab.CR PO SCH (09:33)
--- NOTE | 2019-11-08 10:30 | PCM.PN ---
- General Info Date of Service: 11/08/19 Admission Dx/Problem (Free Text): ETOH Withdrawal Subjective Update: 11/08/2019: Patient had some confusion last night and was starting to leave. This morning he is doing well, slept well, and has a good appetite. Currently he is in agreement with plan to go to inpatient rehab. 11/07/19: He slept well and had an uneventful night. 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 He had not signs of ongoing infection. No chills, no cough, or signs of upper respiratory infection. No dysuria. 11/06/19: He had a rough night. Per night nurse, he was extreme;y confused and hallucinating. He ended up receiving a total of 3-4 mg of Ativan, Clonodine 0.1 mg x 3 and a one time dose of 5 mg Haldol. His CIWAA has been 8-9. 11/05/19: Patient is still in withdrawal. He is confused and having visual hallucinations. He has received haldol and ativan round the clock overnight. He ate a small piece of sandwich at about 5 PM but nothing last night. He is however awake but not fully alert and able to engage (i.e. talk ) this morning. Updated his about his clinical progress. His Mg is down to1.7 and his renal panel improved. His CIWAA is bet 9-15. 11/04/19: Patient detoxed hard last night. He was getting ativan round the clock starting at 11 pm. He is comfortably resting this morning. His CIWAA is bet 7- 10. His UA and UDS were negative. Functional Status: Reports: Pain Controlled - Review of Systems General: Reports: No Symptoms HEENT: Reports: No Symptoms Pulmonary: Reports: No Symptoms Cardiovascular: Reports: No Symptoms Gastrointestinal: Reports: No Symptoms Musculoskeletal: Reports: No Symptoms - Patient Data Vitals - Most Recent: Last Vital Signs Temp 97.3 F 11/08/19 08:16 Pulse 92 11/08/19 09:31 Resp 20 11/08/19 08:16 BP 134/97 H 11/08/19 09:31 Pulse Ox 97 11/08/19 08:16 Weight - Most Recent: 97.25 kg I&O - Last 24 Hours: Intake & Output 11/07/19 11/08/19 11/08/19 22:59 06:59 14:59 Intake Total 1500 600 Output Total 300 Balance 1200 600 Med Orders - Current: Current Medications Acetaminophen (Tylenol) 650 mg PO Q6HR PRN PRN Reason: Pain/Fever Last Admin: 11/06/19 21:44 Dose: 650 mg Documented by: Albuterol/Ipratropium (Duoneb 3.0-0.5 Mg/3 Ml) 3 ml NEB Q4H PRN PRN Reason: Shortness Of Breath/wheezing Bisacodyl (Dulcolax) 5 mg PO DAILY PRN PRN Reason: Constipation Clonidine HCl (Catapres) 0.1 mg PO Q4H PRN PRN Reason: Agitation Last Admin: 11/06/19 05:59 Dose: 0.1 mg Documented by: Docusate Sodium (Colace) 100 mg PO BID PRN PRN Reason: Constipation Last Admin: 11/06/19 21:34 Dose: 100 mg Documented by: Fluoxetine HCl (Prozac) 20 mg PO DAILY [facility] Last Admin: 11/08/19 09:31 Dose: 20 mg Documented by: Folic Acid (Folic Acid) 1 mg PO BEDTIME [facility] Last Admin: 11/07/19 22:13 Dose: Not Given Documented by: Heparin Sodium (Porcine) (Heparin Sodium) 5,000 units SUBCUT Q8H [facility] Last Admin: 11/08/19 09:33 Dose: Not Given Documented by: Hydrochlorothiazide (Hydrochlorothiazide) 12.5 mg PO DAILY [facility] Last Admin: 11/08/19 09:31 Dose: 12.5 mg Documented by: Promethazine HCl 12.5 mg/ (Sodium Chloride) 50.5 mls @ 100 mls/hr IV Q6H PRN PRN Reason: Nausea/Vomiting Last Admin: 11/02/19 20:30 Dose: 100 mls/hr Documented by: Lisinopril (Prinivil) 20 mg PO DAILY [facility] Last Admin: 11/08/19 09:30 Dose: 20 mg Documented by: Lorazepam (Ativan) 0 mg IVPUSH Q1H PRN; Protocol PRN Reason: Withdrawal Symptoms Last Admin: 11/07/19 21:31 Dose: 1 mg Documented by: Metoprolol Succinate (Toprol Xl) 50 mg PO DAILY [facility] Last Admin: 11/08/19 09:31 Dose: 50 mg Documented by: Metoprolol Tartrate (Lopressor) 5 mg IVPUSH Q4H PRN PRN Reason: Tachycardia Multivitamins (Thera) 1 each PO BEDTIME [facility] Last Admin: 11/07/19 22:13 Dose: Not Given Documented by: Ondansetron HCl (Zofran) 4 mg IV Q6H PRN PRN Reason: Nausea/Vomiting Pantoprazole Sodium (Protonix) 40 mg PO DAILY [facility] Last Admin: 11/08/19 09:33 Dose: 40 mg Documented by: Quetiapine Fumarate (Seroquel) 50 mg PO BEDTIME [facility] Last Admin: 11/07/19 22:13 Dose: Not Given Documented by: Senna/Docusate Sodium (Senna Plus) 1 tab PO BID PRN PRN Reason: Constipation Last Admin: 11/06/19 21:46 Dose: 1 tab Documented by: Sodium Chloride (Saline Flush) 10 ml FLUSH ASDIRECTED PRN PRN Reason: Keep Vein Open Thiamine HCl (Vitamin B-1) 100 mg PO BEDTIME [facility] Last Admin: 11/07/19 22:13 Dose: Not Given Documented by: Topiramate (Topamax) 25 mg PO BID [facility] Last Admin: 11/08/19 09:32 Dose: 25 mg Documented by: Discontinued Medications Chlordiazepoxide HCl (Librium) 75 mg PO ONETIME ONE Stop: 11/02/19 20:54 Last Admin: 11/02/19 20:57 Dose: 75 mg Documented by: Chlordiazepoxide HCl (Librium) 50 mg PO Q4H [facility] Stop: 11/03/19 18:01 Last Admin: 11/03/19 02:31 Dose: Not Given Documented by: Chlordiazepoxide HCl (Librium) 50 mg PO Q6H [facility] Stop: 11/04/19 18:01 Chlordiazepoxide HCl (Librium) 25 mg PO Q4H [facility] Stop: 11/05/19 20:01 Chlordiazepoxide HCl (Librium) 25 mg PO Q6H [facility] Stop: 11/06/19 18:01 Diphenhydramine HCl (Benadryl) 25 mg IVPUSH ONETIME ONE Stop: 11/02/19 19:02 Last Admin: 11/02/19 20:22 Dose: 25 mg Documented by: Diphenhydramine HCl (Benadryl) 25 mg IVPUSH ONETIME ONE Stop: 11/03/19 21:01 Last Admin: 11/03/19 20:51 Dose: 25 mg Documented by: Haloperidol Lactate (Haldol) 2 mg IM Q4H PRN PRN Reason: Agitation Last Admin: 11/04/19 23:55 Dose: 2 mg Documented by: Haloperidol Lactate (Haldol) 5 mg IVPUSH ONETIME ONE Stop: 11/06/19 04:39 Last Admin: 11/06/19 04:45 Dose: 5 mg Documented by: Sodium Chloride (Normal Saline) 1,000 mls @ 999 mls/hr IV ASDIRECTED [facility] Last Admin: 11/02/19 15:29 Dose: 999 mls/hr Documented by: Sodium Chloride (Normal Saline) 1,000 mls @ 999 mls/hr IV ASDIRECTED [facility] Last Admin: 11/02/19 17:29 Dose: 999 mls/hr Documented by: Dextrose/Sodium Chloride (Dextrose 5%-1/2 Ns) 1,000 mls @ 100 mls/hr IV ASDIRECTED [facility] Last Admin: 11/02/19 23:23 Dose: 100 mls/hr Documented by: Sodium Chloride (Normal Saline) 1,000 mls @ 50 mls/hr IV ASDIRECTED [facility] Sodium Chloride (Normal Saline) 1,000 mls @ 100 mls/hr IV ASDIRECTED [facility] Last Admin: 11/06/19 11:32 Dose: 100 mls/hr Documented by: Magnesium Sulfate/Dextrose 1 (gm/ Premix) 100 mls @ 100 mls/hr IV ONETIME ONE Stop: 11/05/19 08:13 Last Admin: 11/05/19 07:30 Dose: 100 mls/hr Documented by: Magnesium Sulfate 2 gm/ Premix 50 mls @ 25 mls/hr IV ONETIME ONE Stop: 11/06/19 08:12 Last Admin: 11/06/19 06:42 Dose: 25 mls/hr Documented by: Loperamide HCl (Imodium) 4 mg PO ONETIME ONE Stop: 11/06/19 07:26 Last Admin: 11/06/19 08:17 Dose: 4 mg Documented by: Lorazepam (Ativan) 0 mg IVPUSH Q20M PRN; Protocol PRN Reason: Withdrawal Symptoms Last Admin: 11/02/19 21:22 Dose: 2 mg Documented by: Lorazepam (Ativan) 0 mg IVPUSH Q2H PRN; Protocol PRN Reason: Withdrawal Symptoms Lorazepam (Ativan) 0 mg IVPUSH Q20M PRN; Protocol PRN Reason: Withdrawal Symptoms Last Admin: 11/03/19 08:31 Dose: 2 mg Documented by: Lorazepam (Ativan) 1 mg IVPUSH ONETIME ONE Stop: 11/07/19 17:01 Last Admin: 11/07/19 17:14 Dose: 1 mg Documented by: Lorazepam (Ativan) 1 mg IVPUSH ONETIME ONE Stop: 11/07/19 18:28 Last Admin: 11/07/19 19:32 Dose: 1 mg Documented by: Multivitamins (Thera) 1 each PO BEDTIME [facility] Last Admin: 11/04/19 21:39 Dose: Not Given Documented by: Ondansetron HCl (Zofran) 4 mg IVPUSH ONETIME ONE Stop: 11/02/19 15:18 Last Admin: 11/02/19 15:29 Dose: 4 mg Documented by: Quetiapine Fumarate (Seroquel) 50 mg PO ONETIME ONE Stop: 11/06/19 09:01 Last Admin: 11/06/19 08:17 Dose: 50 mg Documented by: Sodium Chloride (Saline Flush) 10 ml FLUSH ASDIRECTED PRN PRN Reason: Keep Vein Open Last Admin: 11/02/19 15:31 Dose: 10 ml Documented by: - Exam General: Alert, Oriented HEENT: Pupils Equal, Mucous Membr. Moist/[place] Neck: Supple Lungs: Clear to Auscultation, Normal Respiratory Effort Cardiovascular: Regular Rate, Regular Rhythm GI/Abdominal Exam: Normal Bowel Sounds, Soft, Non-Tender, No Organomegaly, No Distention Extremities: Normal Inspection, Normal Range of Motion, Non-Tender, No Pedal Edema, Normal Capillary Refill Skin: Warm, Dry, Intact Neurological: No New Focal Deficit Psy/Mental Status: Alert, Normal Affect, Normal Mood Sepsis Event Note - Evaluation Sepsis Screening Result: No Definite Risk - Focused Exam Vital Signs: Vital Signs Temp Pulse Resp BP Pulse Ox 11/08/19 09:31 92 134/97 H 11/08/19 09:30 134/97 H 11/08/19 08:16 97.3 F 92 20 134/97 H 97 Date Exam was Performed: 11/08/19 Time Exam was Performed: 13:41 - Problem List Review Problem List Initiated/Reviewed/Updated: Yes - Plan Plan:: This is a 54 yo white male with past medical hx/o chronic alcoholism, hypertension, hyperlipidemia, GERD, and depression who was brought in by his due to acute confusion with withdrawal symptoms. Assessment: Acute: * Delirium Tremens/Withdrawal Symptoms. He carries a hx/o chronic alcoholism. He is not very forth coming and it appears he hides his drinking from his family. he drinks hard liquor. His found 1.25L of Vodka. Per family, his drinking has gotten out of hand since April. Had a rough night last night. He apparently wanted to leave. CIWAA is mld-moderate at this point. Continue Seroquel and Topamax tonight for maintenance. Was seen by Dr. Bagley in psychiatry who recommended Prozac 20 mg daily. * * * Obesity Class II. Carries a BMI of 33.9. Director Validation consult for weight management. * Mild Proteinuria. This is likely due to his long standing hypertension. He was on hctz/lisinopril for maintenance medications. If no changes on his renal panel, we may be able to resume lisinopril in AM. 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 Findings on renal US. He has no back pain or acute urinary complaints. UA is clean for infection. Sodium, AG, and CO2 improved. No hematuria on catheter bag. VCUG is a consideration but would need contrast. Will obtain chart from PCP to check if he has chronic renal insufficiency. Abdominal CT scan report read as cortical cyst within the left kidney causing the questioned dilated renal pelvis on recent U/S. No hydronephrosis seen. No renal calculi or ureteral calculi seen. No additional management needed at this point. This can be followed up outpatient. * Fatty Liver infiltrate. Abnormal finding noted on Abdominal/Pelvis CT scan. This is likely due to chronic alcoholism. Director Validation's consult for proper diet. Will litigation counsel on LSM once fully alert and awake. Resolved: * Acute urinary retention. Had > 700 ml of urine residual after grey cath was placed in. No hx/o enlarged prostate. Grey cath was removed. No issues with voiding. * Acute confusion 2/2 metabolic/toxic encephalopathy. Has abnormal e-lytes and UA/UDS negative. Head CT scan and Brain MRI done in ED are both negative for acute abnormal findings. This could be mainly to alcohol abuse. He is way much better cognitive verma. We will continue monitor. * Hypovolemia Hyperosmolar Hyponatremia. This is likely due to etoh abuse and not able to eat of drink adequately. He is volume depleted. he comes in with a NA level of 133. Although this could be affected by his HCTZ and Zoloft he takes for maintenance medications. Resolved. Continue to hold HCTZ. * Increased AG Metabolic Acidosis. This is 2/2 ETOH Abuse. he is afebrile and no signs of systemic infection. Expect to improve with hydration. Resolved. * Hyperglycemia. He comes to us with BS level of 172. He carries no hx/o glucose intolerance or diabetes. Now back to normal range. * Transaminitis. He comes with AST and ALT levels of respectively. This is likely due to etoh abuse. Now back to normal range. * Mild Leukocytosis. This is likely due to stress. He is afebrile w/o signs of systemic infection. Afebrile and UA is negative. Now back to normal range. * Mild Thrombocytopenia. He comes in with an elevated platelet level of 493. This is due to chronic alcohol use. Now back to normal range. * Hypocalcemia. He came to us with an initial level of 8.1. Now resolved at 8.8. He had a small sandwich yesterday. Expect to improve once he is fully eating and drinking. * Acute on chronic CKD, unknown stage. This is likely 2/2 volume depletion and dehydration from etoh abuse. No previous level for comparison. He comes in with a CR of 2.6 with a BUN of 49. So far he has received 2L of NS in ED. It appears he might have an underlying CKD. Had D5-1/2 NS overnight. We will switch to 1L NS at 100/hr. Renal U/S report read as dilated left renal pelvis: uncertain if due to functional UPJ obstruction or hydronephrosis, both resistivity indices are normal within both kidneys. His renal panel seems to be back at his baseline-likely stage 2. * Mild Hypomagnesemia. This is 2/2 inadequate intake. He is now within normal range. * Non-specific fever. We will monitor. Chronic: * HTN * HLD * GERD * Depression * Chronic Alcoholism Plan: Continue CIWAA protocol. Thiamine, folic acid and MVI. Regular diet. DVT/GI Prophylaxis. Off 1:1 for now. Fall precautions. SW/CM for discharge planning. Plan to discharge tomorrow to alcohol rehab facility.
[2019-11-08] MEDS: Folic Acid 1 MG Tab PO SCH (20:37)
[2019-11-08] MEDS: Multivitamins,Therapeutic Tab PO SCH (20:37)
[2019-11-08] MEDS: Docusate Sodium 100 MG Cap PO PRN (20:38)
[2019-11-08] MEDS: Thiamine 100 MG Tab PO SCH (20:38)
[2019-11-08] MEDS: QUEtiapine 25 MG Tab PO SCH (20:39)
[2019-11-09] MEDS: Heparin Sodium 5,000 Units/ML Vial SUBCUT SCH (06:36)
--- NOTE | 2019-11-09 07:21 | PCM.DCSUM1 ---
<Alber Causey - Last Filed: 11/09/19 08:28> Discharge Summary - Hospital Course Diagnosis: Stroke: No - Discharge Data Discharge Disposition: DC/Tfer to Inpt Rehab Fac 62 Condition: Good - Referral to Home Health Primary Care Physician: Thanh Moreno Jr, MD - Patient Summary/Data Consults: Consultations 11/02/19 18:50 Consult to Case Management/Gun Welder [CONS] Routine Consult to Physician [CONS] Routine 11/03/19 10:22 Consult for Substance Abuse [CONS] Routine Consult to Dietary [Consult to Clinical Care Coordinator] [CONS] Routine 11/05/19 17:52 OT Evaluation and Treatment [CONS] Routine PT Evaluation and Treatment [CONS] Routine 11/05/19 17:54 Consult to Speech Language Pathology [SAIL REPAIRER Evaluation and Treatment] [CONS] Routine 11/07/19 15:06 Consult to Spiritual Care [CONS] Routine - Discharge Plan Prescriptions/Med Rec: FLUoxetine HCl [Fluoxetine HCl] 20 mg PO DAILY #30 tablet Folic Acid 1 mg PO BEDTIME #30 tablet Lisinopril/Hydrochlorothiazide [Lisinopril-Hctz 20-25 mg Tab] 1 each PO QAM #30 tablet Omeprazole 1 tab PO ACBREAKFAST #30 QUEtiapine [SEROquel] 50 mg PO BEDTIME #30 tablet Multivitamins,Therapeutic [Thera] 1 each PO BEDTIME #30 tablet Topiramate [Topamax] 25 mg PO BID #60 tablet Thiamine [Vitamin B-1] 100 mg PO BEDTIME #30 tablet Home Medications: Home Meds Metoprolol Succinate [Toprol XL 50mg] 50 mg PO DAILY 11/02/19 [History] FLUoxetine HCl [Fluoxetine HCl] 20 mg PO DAILY #30 tablet 11/09/19 [Rx] Folic Acid 1 mg PO BEDTIME #30 tablet 11/09/19 [Rx] Lisinopril/Hydrochlorothiazide [Lisinopril-Hctz 20-25 mg Tab] 1 each PO QAM #30 tablet 11/09/19 [Rx] Multivitamins,Therapeutic [Thera] 1 each PO BEDTIME #30 tablet 11/09/19 [Rx] Omeprazole 1 tab PO ACBREAKFAST #30 11/09/19 [Rx] QUEtiapine [SEROquel] 50 mg PO BEDTIME #30 tablet 07/22/20 [Rx] Thiamine [Vitamin B-1] 100 mg PO BEDTIME #30 tablet 11/09/19 [Rx] Topiramate [Topamax] 25 mg PO BID #60 tablet 11/09/19 [Rx] Referrals: Thanh Moreno Jr, MD [Primary Care Provider] - - General Info Date of Service: 11/09/19 Admission Dx/Problem (Free Text: ETOH Withdrawal Functional Status: Reports: Pain Controlled, Tolerating Diet, Ambulating, Urinating. Denies: New Symptoms - Review of Systems General: Reports: No Symptoms. Denies: Fever, Weakness, Fatigue, Malaise, Chills HEENT: Reports: No Symptoms. Denies: Headaches, Sore Throat Pulmonary: Reports: No Symptoms. Denies: Shortness of Breath, Pleuritic Chest Pain, Cough, Sputum, Wheezing Cardiovascular: Reports: No Symptoms. Denies: Chest Pain, Palpitations, Dyspnea on Exertion Gastrointestinal: Reports: No Symptoms. Denies: Abdominal Pain, Constipation, Diarrhea, Nausea, Vomiting Genitourinary: Reports: No Symptoms. Denies: Pain Musculoskeletal: Reports: No Symptoms Skin: Reports: No Symptoms. Denies: Cyanosis Neurological: Reports: No Symptoms. Denies: Confusion, Difficulty Walking, Gait Disturbance Psychiatric: Reports: No Symptoms, Other (Much more alert today ). Denies: Mood Lability, Agitation, Hallucinations - Patient Data Vitals - Most Recent: Last Vital Signs Temp 98.1 F 11/09/19 03:18 Pulse 74 11/09/19 03:18 Resp 18 11/09/19 03:18 BP 128/91 H 11/09/19 03:18 Pulse Ox 96 11/09/19 03:18 Weight - Most Recent: 97.205 kg I&O - Last 24 hours: Intake & Output 11/08/19 11/09/19 11/09/19 22:59 06:59 14:59 Intake Total 300 1000 Output Total 1300 1200 Balance -1000 -200 Med Orders - Current: Current Medications Acetaminophen (Tylenol) 650 mg PO Q6HR PRN PRN Reason: Pain/Fever Last Admin: 11/06/19 21:44 Dose: 650 mg Documented by: Albuterol/Ipratropium (Duoneb 3.0-0.5 Mg/3 Ml) 3 ml NEB Q4H PRN PRN Reason: Shortness Of Breath/wheezing Bisacodyl (Dulcolax) 5 mg PO DAILY PRN PRN Reason: Constipation Clonidine HCl (Catapres) 0.1 mg PO Q4H PRN PRN Reason: Agitation Last Admin: 11/06/19 05:59 Dose: 0.1 mg Documented by: Docusate Sodium (Colace) 100 mg PO BID PRN PRN Reason: Constipation Last Admin: 11/08/19 20:38 Dose: 100 mg Documented by: Fluoxetine HCl (Prozac) 20 mg PO DAILY [facility] Last Admin: 11/08/19 09:31 Dose: 20 mg Documented by: Folic Acid (Folic Acid) 1 mg PO BEDTIME [facility] Last Admin: 11/08/19 20:37 Dose: 1 mg Documented by: Heparin Sodium (Porcine) (Heparin Sodium) 5,000 units SUBCUT Q8H [facility] Last Admin: 11/09/19 06:36 Dose: 5,000 units Documented by: Hydrochlorothiazide (Hydrochlorothiazide) 12.5 mg PO DAILY [facility] Last Admin: 11/08/19 09:31 Dose: 12.5 mg Documented by: Promethazine HCl 12.5 mg/ (Sodium Chloride) 50.5 mls @ 100 mls/hr IV Q6H PRN PRN Reason: Nausea/Vomiting Last Admin: 11/02/19 20:30 Dose: 100 mls/hr Documented by: Lisinopril (Prinivil) 20 mg PO DAILY [facility] Last Admin: 11/08/19 09:30 Dose: 20 mg Documented by: Lorazepam (Ativan) 0 mg IVPUSH Q1H PRN; Protocol PRN Reason: Withdrawal Symptoms Last Admin: 11/07/19 21:31 Dose: 1 mg Documented by: Metoprolol Succinate (Toprol Xl) 50 mg PO DAILY [facility] Last Admin: 11/08/19 09:31 Dose: 50 mg Documented by: Metoprolol Tartrate (Lopressor) 5 mg IVPUSH Q4H PRN PRN Reason: Tachycardia Multivitamins (Thera) 1 each PO BEDTIME [facility] Last Admin: 11/08/19 20:37 Dose: 1 each Documented by: Ondansetron HCl (Zofran) 4 mg IV Q6H PRN PRN Reason: Nausea/Vomiting Pantoprazole Sodium (Protonix) 40 mg PO DAILY [facility] Last Admin: 11/08/19 09:33 Dose: 40 mg Documented by: Quetiapine Fumarate (Seroquel) 50 mg PO BEDTIME [facility] Last Admin: 11/08/19 20:39 Dose: 50 mg Documented by: Senna/Docusate Sodium (Senna Plus) 1 tab PO BID PRN PRN Reason: Constipation Last Admin: 11/06/19 21:46 Dose: 1 tab Documented by: Sodium Chloride (Saline Flush) 10 ml FLUSH ASDIRECTED PRN PRN Reason: Keep Vein Open Thiamine HCl (Vitamin B-1) 100 mg PO BEDTIME [facility] Last Admin: 11/08/19 20:38 Dose: 100 mg Documented by: Topiramate (Topamax) 25 mg PO BID [facility] Last Admin: 11/08/19 20:38 Dose: 25 mg Documented by: Discontinued Medications Chlordiazepoxide HCl (Librium) 75 mg PO ONETIME ONE Stop: 11/02/19 20:54 Last Admin: 11/02/19 20:57 Dose: 75 mg Documented by: Chlordiazepoxide HCl (Librium) 50 mg PO Q4H [facility] Stop: 11/03/19 18:01 Last Admin: 11/03/19 02:31 Dose: Not Given Documented by: Chlordiazepoxide HCl (Librium) 50 mg PO Q6H [facility] Stop: 11/04/19 18:01 Chlordiazepoxide HCl (Librium) 25 mg PO Q4H [facility] Stop: 11/05/19 20:01 Chlordiazepoxide HCl (Librium) 25 mg PO Q6H [facility] Stop: 11/06/19 18:01 Diphenhydramine HCl (Benadryl) 25 mg IVPUSH ONETIME ONE Stop: 11/02/19 19:02 Last Admin: 11/02/19 20:22 Dose: 25 mg Documented by: Diphenhydramine HCl (Benadryl) 25 mg IVPUSH ONETIME ONE Stop: 11/03/19 21:01 Last Admin: 11/03/19 20:51 Dose: 25 mg Documented by: Haloperidol Lactate (Haldol) 2 mg IM Q4H PRN PRN Reason: Agitation Last Admin: 11/04/19 23:55 Dose: 2 mg Documented by: Haloperidol Lactate (Haldol) 5 mg IVPUSH ONETIME ONE Stop: 11/06/19 04:39 Last Admin: 11/06/19 04:45 Dose: 5 mg Documented by: Sodium Chloride (Normal Saline) 1,000 mls @ 999 mls/hr IV ASDIRECTED [facility] Last Admin: 11/02/19 15:29 Dose: 999 mls/hr Documented by: Sodium Chloride (Normal Saline) 1,000 mls @ 999 mls/hr IV ASDIRECTED [facility] Last Admin: 11/02/19 17:29 Dose: 999 mls/hr Documented by: Dextrose/Sodium Chloride (Dextrose 5%-1/2 Ns) 1,000 mls @ 100 mls/hr IV ASDIRECTED [facility] Last Admin: 11/02/19 23:23 Dose: 100 mls/hr Documented by: Sodium Chloride (Normal Saline) 1,000 mls @ 50 mls/hr IV ASDIRECTED FELIC[facility] Sodium Chloride (Normal Saline) 1,000 mls @ 100 mls/hr IV ASDIRECTED [facility] Last Admin: 11/06/19 11:32 Dose: 100 mls/hr Documented by: Magnesium Sulfate/Dextrose 1 (gm/ Premix) 100 mls @ 100 mls/hr IV ONETIME ONE Stop: 11/05/19 08:13 Last Admin: 11/05/19 07:30 Dose: 100 mls/hr Documented by: Magnesium Sulfate 2 gm/ Premix 50 mls @ 25 mls/hr IV ONETIME ONE Stop: 11/06/19 08:12 Last Admin: 11/06/19 06:42 Dose: 25 mls/hr Documented by: Loperamide HCl (Imodium) 4 mg PO ONETIME ONE Stop: 11/06/19 07:26 Last Admin: 11/06/19 08:17 Dose: 4 mg Documented by: Lorazepam (Ativan) 0 mg IVPUSH Q20M PRN; Protocol PRN Reason: Withdrawal Symptoms Last Admin: 11/02/19 21:22 Dose: 2 mg Documented by: Lorazepam (Ativan) 0 mg IVPUSH Q2H PRN; Protocol PRN Reason: Withdrawal Symptoms Lorazepam (Ativan) 0 mg IVPUSH Q20M PRN; Protocol PRN Reason: Withdrawal Symptoms Last Admin: 11/03/19 08:31 Dose: 2 mg Documented by: Lorazepam (Ativan) 1 mg IVPUSH ONETIME ONE Stop: 11/07/19 17:01 Last Admin: 11/07/19 17:14 Dose: 1 mg Documented by: Lorazepam (Ativan) 1 mg IVPUSH ONETIME ONE Stop: 11/07/19 18:28 Last Admin: 11/07/19 19:32 Dose: 1 mg Documented by: Multivitamins (Thera) 1 each PO BEDTIME [facility] Last Admin: 11/04/19 21:39 Dose: Not Given Documented by: Ondansetron HCl (Zofran) 4 mg IVPUSH ONETIME ONE Stop: 11/02/19 15:18 Last Admin: 11/02/19 15:29 Dose: 4 mg Documented by: Quetiapine Fumarate (Seroquel) 50 mg PO ONETIME ONE Stop: 11/06/19 09:01 Last Admin: 11/06/19 08:17 Dose: 50 mg Documented by: Sodium Chloride (Saline Flush) 10 ml FLUSH ASDIRECTED PRN PRN Reason: Keep Vein Open Last Admin: 11/02/19 15:31 Dose: 10 ml Documented by: - Exam Quality Assessment: Reports: DVT Prophylaxis General: Reports: Alert, Oriented, Cooperative, No Acute Distress HEENT: Reports: Pupils Equal, Pupils Reactive, Mucous Membr. Moist/Chance Neck: Reports: Supple, Trachea Midline Lungs: Reports: Clear to Auscultation, Normal Respiratory Effort Cardiovascular: Reports: Regular Rate, Regular Rhythm GI/Abdominal Exam: Normal Bowel Sounds, Soft, Non-Tender, No Distention (Male) Exam: Deferred Rectal (Males) Exam: Deferred Back Exam: Reports: Normal Inspection, Full Range of Motion Extremities: Normal Inspection, Normal Range of Motion, Non-Tender, No Pedal Edema, Normal Capillary Refill Skin: Reports: Warm, Dry, Intact Neurological: Reports: No New Focal Deficit Psy/Mental Status: Reports: Alert, Depressed. Denies: Withdrawal Symptoms <Seda Reyna III - Last Filed: 11/09/19 08:33> Discharge Summary - Hospital Course HPI Initial Comments: This is a 54 yo white male with past medical hx/o chronic alcoholism, hypertension, hyperlipidemia, GERD, and depression who was brought in by his due to acute confusion with withdrawal symptoms. His last drink was apparently last night but according to him it was this past Thursday. He was not very forthcoming with his alcohol abuse. However his thinks he drinks heavily about 1.25 L of vodka a day and hides his drinking from family. His believes his drinking has gotten out of hand since April. He has had etoh withdrawal in the past. Per family, he was tremulous and sweating. This morning he was alert, awake, but confused. He was able to answer yes or no but cannot offer a meaning conversation. No report of visual, tactile or auditory hallucinations. His initial work up in the emergency shows a CBC remarkable for WBC of 11.80, platelet # of 493, Neutrophils of 78.6%, Lymphocyte # of 147% and Monocytes # of 4.1%. His chemistry is significant for sodium of 133, CO2 of 19, AG of 20.2, BUN of 49, Cr of 2.6, BS of 172, AST of 48, ALT of 77 and Total Protein of 8.4. His ETOH and COVID-19 screening are negative. Brain MRI and Head CT scan reports are both negative for acute abnormal findings. Patient is coming in primarily for etoh withdrawal. This is a 54 yo white male with past medical hx/o chronic alcoholism, hypertension, hyperlipidemia, GERD, and depression who was brought in by his due to acute confusion with withdrawal symptoms. Assessment: Acute: * ETOH Abuse/Withdrawal Symptoms. He carries a hx/o chronic alcoholism. He is not very forth coming and it appears he hides his drinking from his family. he drinks hard liquor. His found 1.25L of Vodka. Per family, his drinking has gotten out of hand since April. * Acute confusion 2/2 metabolic/toxic encephalopathy. Has abnormal e-lytes and UA/UDS pending. Head CT scan and Brain MRI done in ED are both negative for acute abnormal findings. This could be mainly to alcohol abuse. We will monitor. * Acute kidney injury vs CKD. This is likely 2/2 volume depletion and dehydration from etoh abuse. No previous level for comparison. He comes in with a CR of 2.6 with a BUN of 49. So far he has received 2L of NS in ED. Plan: e-lytes studies, avoid nephrotoxic agents, monitor Is/Os, renal US to r/o obstructive uropathy and repeat renal panel in AM. * Hypovolemia Hyperosmolar Hyponatremia. This is likely due to etoh abuse and not able to eat of drink adequately. He is volume depleted. he comes in with a NA level of 133. Although this could be affected by his HCTZ and Zoloft he takes for maintenance medications. We will hold HCTZ for now and monitor levels. * Increased AG Metabolic Acidosis. This is 2/2 ETOh Abuse. he is afebrile and no signs of systemic infection. Expect to improve with hydration. * Hyperglycemia. He comes to us with BS level of 172. He carries no hx/o glucose intolerance or diabetes. We will monitor. * Transaminitis. He comes to us with AST and ALT levels of respectively. This is likely due to etoh abuse.He is on statin so we will hold if for now until his liver enzymes improve. * Mild Leukocytosis. This is likely due to stress. He is afebrile w/o signs of systemic infection. We will monitor. * Mild Thrombocytopenia. He comes in with an elevated platelet level of 493. This is due to chronic alcohol use. Chronic: * HTN * HLD * GERD * Depression * Chronic Alcoholism Plan: Admit to ICU. ETOH Withdrawal orders. CIWAA protocol. Thiamine, folic acid and MVI. IV fluid for hydration. Renal U/S in AM. Avoid neprhotxic agents. Regular diet. Tele-psych consult with Dr. Bagley. /KIAH for discharge planning. - Mortality Measure Prognosis:: Good Diagnosis: Stroke: No - Discharge Data Discharge Date: 11/09/19 - Referral to Home Health Primary Care Physician: Thanh Moreno Jr, MD - Discharge Diagnosis/Problem(s) (1) Alcohol abuse SNOMED Code(s): 53306661 ICD Code: F10.10 - ALCOHOL ABUSE, UNCOMPLICATED Status: Acute Current Visit: Yes (2) Alcohol withdrawal delirium SNOMED Code(s): 2713315 ICD Code: F10.231 - ALCOHOL DEPENDENCE WITH WITHDRAWAL DELIRIUM Status: Acute Current Visit: Yes (3) Acute renal failure (ARF) SNOMED Code(s): 07774434 ICD Code: N17.9 - ACUTE KIDNEY FAILURE, UNSPECIFIED Status: Acute Current Visit: Yes Qualifiers: Acute renal failure type: unspecified Qualified Code(s): N17.9 - Acute kidney failure, unspecified (4) Altered mental state SNOMED Code(s): 368494823 ICD Code: R41.82 - ALTERED MENTAL STATUS, UNSPECIFIED Status: Acute Current Visit: Yes Qualifiers: Altered mental status type: disorientation Qualified Code(s): R41.0 - Disorientation, unspecified - Patient Summary/Data Consults: Consultations 11/02/19 18:50 Consult to Case Management/Gun Welder [CONS] Routine Consult to Physician [CONS] Routine 11/03/19 10:22 Consult for Substance Abuse [CONS] Routine Consult to Dietary [Consult to Clinical Care Coordinator] [CONS] Routine 11/05/19 17:52 OT Evaluation and Treatment [CONS] Routine PT Evaluation and Treatment [CONS] Routine 11/05/19 17:54 Consult to Speech Language Pathology [SAIL REPAIRER Evaluation and Treatment] [CONS] Routine 11/07/19 15:06 Consult to Spiritual Care [CONS] Routine Hospital Course: 11/08/2019: Patient had some confusion last night and wanted to leave. This morning he is doing well, slept well, and has a good appetite. Currently he is in agreement with plan to go to inpatient rehab. 11/07/19: He slept well and had an uneventful night. However he had a temp as high as 100.8T textbook associate hours. He had not signs of ongoing infection. No chills, no cough, or signs of upper respiratory infection. No dysuria. 11/06/19: He had a rough night. Per night nurse, he was extreme;y confused and hallucinating. He ended up receiving a total of 3-4 mg of Ativan, Clonodine 0.1 mg x 3 and a one time dose of 5 mg Haldol. His CIWAA has been 8-9. 11/05/19: Patient is still in withdrawal. He is confused and having visual hallucinations. He has received haldol and ativan round the clock overnight. He ate a small piece of sandwich at about 5 PM but nothing last night. He is however awake but not fully alert and able to engage (i.e. talk ) this morning. Updated his about his clinical progress. His Mg is down to1.7 and his renal panel improved. His CIWAA is bet 9-15. 11/04/19: Patient detoxed hard last night. He was getting ativan round the clock starting at 11 pm. He is comfortably resting this morning. His CIWAA is bet 7- 10. His UA and UDS were negative. * Delirium Tremens/Withdrawal Symptoms. He carries a hx/o chronic alcoholism. He is not very forth coming and it appears he hides his drinking from his family. he drinks hard liquor. His found 1.25L of Vodka. Per family, his drinking has gotten out of hand since April. Had a rough night last night. He apparently wanted to leave. CIWAA is mld-moderate at this point. Continue Seroquel and Topamax tonight for maintenance. Was seen by Dr. Bagley in psychiatry who recommended Prozac 20 mg daily. * Obesity Class II. Carries a BMI of 33.9. Clinical Care Coordinator consult for weight management. * Mild Proteinuria. This is likely due to his long standing hypertension. He was on hctz/lisinopril for maintenance medications. If no changes on his renal panel, we may be able to resume lisinopril in AM. 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 Findings on renal US. He has no back pain or acute urinary complaints. UA is clean for infection. Sodium, AG, and CO2 improved. No hematuria on catheter bag. VCUG is a consideration but would need contrast. Will obtain chart from PCP to check if he has chronic renal insufficiency. Abdominal CT scan report read as cortical cyst within the left kidney causing the questioned dilated renal pelvis on recent U/S. No hydronephrosis seen. No renal calculi or ureteral calculi seen. No additional management needed at this point. This can be followed up outpatient. * Fatty Liver infiltrate. Abnormal finding noted on Abdominal/Pelvis CT scan. This is likely due to chronic alcoholism. Clinical Care Coordinator's consult for proper diet. Will relationship counselor on LSM once fully alert and awake. * Acute urinary retention. Had > 700 ml of urine residual after grey cath was placed in. No hx/o enlarged prostate. Grey cath was removed. No issues with voiding. * Acute confusion 2/2 metabolic/toxic encephalopathy. Has abnormal e-lytes and UA/UDS negative. Head CT scan and Brain MRI done in ED are both negative for acute abnormal findings. This could be mainly to alcohol abuse. He is way much better cognitive verma. We will continue monitor. * Hypovolemia Hyperosmolar Hyponatremia. This is likely due to etoh abuse and not able to eat of drink adequately. He is volume depleted. he comes in with a NA level of 133. Although this could be affected by his HCTZ and Zoloft he takes for maintenance medications. Resolved. Continue to hold HCTZ. * Increased AG Metabolic Acidosis. This is 2/2 ETOH Abuse. he is afebrile and no signs of systemic infection. Expect to improve with hydration. Resolved. * Hyperglycemia. He comes to us with BS level of 172. He carries no hx/o glucose intolerance or diabetes. Now back to normal range. * Transaminitis. He comes with AST and ALT levels of respectively. This is likely due to etoh abuse. Now back to normal range. * Mild Leukocytosis. This is likely due to stress. He is afebrile w/o signs of systemic infection. Afebrile and UA is negative. Now back to normal range. * Mild Thrombocytopenia. He comes in with an elevated platelet level of 493. This is due to chronic alcohol use. Now back to normal range. * Hypocalcemia. He came to us with an initial level of 8.1. Now resolved at 8.8. He had a small sandwich yesterday. Expect to improve once he is fully eating and drinking. * Acute on chronic CKD, unknown stage. This is likely 2/2 volume depletion and dehydration from etoh abuse. No previous level for comparison. He comes in with a CR of 2.6 with a BUN of 49. So far he has received 2L of NS in ED. It appears he might have an underlying CKD. Had D5-1/2 NS overnight. We will switch to 1L NS at 100/hr. Renal U/S report read as dilated left renal pelvis: uncertain if due to functional UPJ obstruction or hydronephrosis, both resistivity indices are normal within both kidneys. His renal panel seems to be back at his baseline-likely stage 2. * Mild Hypomagnesemia. This is 2/2 inadequate intake. He is now within normal range. * Non-specific fever. No recurrence. Chronic: * HTN * HLD * GERD * Depression * Chronic Alcoholism - Patient Instructions Diet: Heart Healthy Diet Activity: As Tolerated Driving: Do Not Drive Showering/Bathing: May Shower - Discharge Plan *PRESCRIPTION DRUG MONITORING PROGRAM REVIEWED*: No *COPY OF PRESCRIPTION DRUG MONITORING REPORT IN PATIENT SHARMAINE: No Oxygen Therapy Mode: Room Air - Discharge Summary/Plan Comment DC Time >30 min.: No Discharge Summary/Plan Comment: Discharge to inpatient alcohol rehab. Follow up with PCP in 1 week. - Patient Data Vitals - Most Recent: Last Vital Signs Temp 98.1 F 11/09/19 03:18 Pulse 74 11/09/19 03:18 Resp 18 11/09/19 03:18 BP 128/91 H 11/09/19 03:18 Pulse Ox 96 11/09/19 03:18 I&O - Last 24 hours: Intake & Output 11/08/19 11/09/19 11/09/19 22:59 06:59 14:59 Intake Total 300 1000 Output Total 1300 1200 Balance -1000 -200 Med Orders - Current: Current Medications Acetaminophen (Tylenol) 650 mg PO Q6HR PRN PRN Reason: Pain/Fever Last Admin: 11/06/19 21:44 Dose: 650 mg Documented by: Albuterol/Ipratropium (Duoneb 3.0-0.5 Mg/3 Ml) 3 ml NEB Q4H PRN PRN Reason: Shortness Of Breath/wheezing Bisacodyl (Dulcolax) 5 mg PO DAILY PRN PRN Reason: Constipation Clonidine HCl (Catapres) 0.1 mg PO Q4H PRN PRN Reason: Agitation Last Admin: 11/06/19 05:59 Dose: 0.1 mg Documented by: Docusate Sodium (Colace) 100 mg PO BID PRN PRN Reason: Constipation Last Admin: 11/08/19 20:38 Dose: 100 mg Documented by: Fluoxetine HCl (Prozac) 20 mg PO DAILY [facility] Last Admin: 11/08/19 09:31 Dose: 20 mg Documented by: Folic Acid (Folic Acid) 1 mg PO BEDTIME [facility] Last Admin: 11/08/19 20:37 Dose: 1 mg Documented by: Heparin Sodium (Porcine) (Heparin Sodium) 5,000 units SUBCUT Q8H [facility] Last Admin: 11/09/19 06:36 Dose: 5,000 units Documented by: Hydrochlorothiazide (Hydrochlorothiazide) 12.5 mg PO DAILY [facility] Last Admin: 11/08/19 09:31 Dose: 12.5 mg Documented by: Promethazine HCl 12.5 mg/ (Sodium Chloride) 50.5 mls @ 100 mls/hr IV Q6H PRN PRN Reason: Nausea/Vomiting Last Admin: 11/02/19 20:30 Dose: 100 mls/hr Documented by: Lisinopril (Prinivil) 20 mg PO DAILY [facility] Last Admin: 11/08/19 09:30 Dose: 20 mg Documented by: Lorazepam (Ativan) 0 mg IVPUSH Q1H PRN; Protocol PRN Reason: Withdrawal Symptoms Last Admin: 11/07/19 21:31 Dose: 1 mg Documented by: Metoprolol Succinate (Toprol Xl) 50 mg PO DAILY [facility] Last Admin: 11/08/19 09:31 Dose: 50 mg Documented by: Metoprolol Tartrate (Lopressor) 5 mg IVPUSH Q4H PRN PRN Reason: Tachycardia Multivitamins (Thera) 1 each PO BEDTIME [facility] Last Admin: 11/08/19 20:37 Dose: 1 each Documented by: Ondansetron HCl (Zofran) 4 mg IV Q6H PRN PRN Reason: Nausea/Vomiting Pantoprazole Sodium (Protonix) 40 mg PO DAILY [facility] Last Admin: 11/08/19 09:33 Dose: 40 mg Documented by: Quetiapine Fumarate (Seroquel) 50 mg PO BEDTIME [facility] Last Admin: 11/08/19 20:39 Dose: 50 mg Documented by: Senna/Docusate Sodium (Senna Plus) 1 tab PO BID PRN PRN Reason: Constipation Last Admin: 11/06/19 21:46 Dose: 1 tab Documented by: Sodium Chloride (Saline Flush) 10 ml FLUSH ASDIRECTED PRN PRN Reason: Keep Vein Open Thiamine HCl (Vitamin B-1) 100 mg PO BEDTIME [facility] Last Admin: 11/08/19 20:38 Dose: 100 mg Documented by: Topiramate (Topamax) 25 mg PO BID [facility] Last Admin: 11/08/19 20:38 Dose: 25 mg Documented by: Discontinued Medications Chlordiazepoxide HCl (Librium) 75 mg PO ONETIME ONE Stop: 11/02/19 20:54 Last Admin: 11/02/19 20:57 Dose: 75 mg Documented by: Chlordiazepoxide HCl (Librium) 50 mg PO Q4H [facility] Stop: 11/03/19 18:01 Last Admin: 11/03/19 02:31 Dose: Not Given Documented by: Chlordiazepoxide HCl (Librium) 50 mg PO Q6H [facility] Stop: 11/04/19 18:01 Chlordiazepoxide HCl (Librium) 25 mg PO Q4H [facility] Stop: 11/05/19 20:01 Chlordiazepoxide HCl (Librium) 25 mg PO Q6H [facility] Stop: 11/06/19 18:01 Diphenhydramine HCl (Benadryl) 25 mg IVPUSH ONETIME ONE Stop: 11/02/19 19:02 Last Admin: 11/02/19 20:22 Dose: 25 mg Documented by: Diphenhydramine HCl (Benadryl) 25 mg IVPUSH ONETIME ONE Stop: 11/03/19 21:01 Last Admin: 11/03/19 20:51 Dose: 25 mg Documented by: Haloperidol Lactate (Haldol) 2 mg IM Q4H PRN PRN Reason: Agitation Last Admin: 11/04/19 23:55 Dose: 2 mg Documented by: Haloperidol Lactate (Haldol) 5 mg IVPUSH ONETIME ONE Stop: 11/06/19 04:39 Last Admin: 11/06/19 04:45 Dose: 5 mg Documented by: Sodium Chloride (Normal Saline) 1,000 mls @ 999 mls/hr IV ASDIRECTED [facility] Last Admin: 11/02/19 15:29 Dose: 999 mls/hr Documented by: Sodium Chloride (Normal Saline) 1,000 mls @ 999 mls/hr IV ASDIRECTED [facility] Last Admin: 11/02/19 17:29 Dose: 999 mls/hr Documented by: Dextrose/Sodium Chloride (Dextrose 5%-1/2 Ns) 1,000 mls @ 100 mls/hr IV ASDIRECTED [facility] Last Admin: 11/02/19 23:23 Dose: 100 mls/hr Documented by: Sodium Chloride (Normal Saline) 1,000 mls @ 50 mls/hr IV ASDIRECTED [facility] Sodium Chloride (Normal Saline) 1,000 mls @ 100 mls/hr IV ASDIRECTED [facility] Last Admin: 11/06/19 11:32 Dose: 100 mls/hr Documented by: Magnesium Sulfate/Dextrose 1 (gm/ Premix) 100 mls @ 100 mls/hr IV ONETIME ONE Stop: 11/05/19 08:13 Last Admin: 11/05/19 07:30 Dose: 100 mls/hr Documented by: Magnesium Sulfate 2 gm/ Premix 50 mls @ 25 mls/hr IV ONETIME ONE Stop: 11/06/19 08:12 Last Admin: 11/06/19 06:42 Dose: 25 mls/hr Documented by: Loperamide HCl (Imodium) 4 mg PO ONETIME ONE Stop: 11/06/19 07:26 Last Admin: 11/06/19 08:17 Dose: 4 mg Documented by: Lorazepam (Ativan) 0 mg IVPUSH Q20M PRN; Protocol PRN Reason: Withdrawal Symptoms Last Admin: 11/02/19 21:22 Dose: 2 mg Documented by: Lorazepam (Ativan) 0 mg IVPUSH Q2H PRN; Protocol PRN Reason: Withdrawal Symptoms Lorazepam (Ativan) 0 mg IVPUSH Q20M PRN; Protocol PRN Reason: Withdrawal Symptoms Last Admin: 11/03/19 08:31 Dose: 2 mg Documented by: Lorazepam (Ativan) 1 mg IVPUSH ONETIME ONE Stop: 11/07/19 17:01 Last Admin: 11/07/19 17:14 Dose: 1 mg Documented by: Lorazepam (Ativan) 1 mg IVPUSH ONETIME ONE Stop: 11/07/19 18:28 Last Admin: 11/07/19 19:32 Dose: 1 mg Documented by: Multivitamins (Thera) 1 each PO BEDTIME [facility] Last Admin: 11/04/19 21:39 Dose: Not Given Documented by: Ondansetron HCl (Zofran) 4 mg IVPUSH ONETIME ONE Stop: 11/02/19 15:18 Last Admin: 11/02/19 15:29 Dose: 4 mg Documented by: Quetiapine Fumarate (Seroquel) 50 mg PO ONETIME ONE Stop: 11/06/19 09:01 Last Admin: 11/06/19 08:17 Dose: 50 mg Documented by: Sodium Chloride (Saline Flush) 10 ml FLUSH ASDIRECTED PRN PRN Reason: Keep Vein Open Last Admin: 11/02/19 15:31 Dose: 10 ml Documented by:
[2019-11-09] MEDS: Metoprolol Succinate 50 MG Tab.ER PO SCH (08:26)
[2019-11-09] MEDS: Lisinopril 20 MG Tab PO SCH (08:30)
[2019-11-09] MEDS: Hydrochlorothiazide 12.5 MG Cap PO SCH (08:30)
[2019-11-09] MEDS: FLUoxetine 20 MG Cap PO SCH (08:31)
[2019-11-09] MEDS: Pantoprazole 40 MG Tab.CR PO SCH (08:31)
[2019-11-09] MEDS: Topiramate 25 MG Tab PO SCH (08:31)
== END 2019-11-09 10:10 | DRG 775 ==
LOC: JD.ED 14:33 → JD.ICU 17:57 → JD.MS 11-06 19:31
PROVIDERS: ADMIT Internal Medicine; ATTEND Internal Medicine
DX: F10.239 Alcohol dependence with withdrawal, unspecified (principal); G93.41 Metabolic encephalopathy; I10 Essential (primary) hypertension; E78.5 Hyperlipidemia, unspecified; K21.9 Gastro-esophageal reflux disease without esophagitis; F32.9 Major depressive disorder, single episode, unspecified; Z20.828 Contact with and (suspected) exposure to other viral communicable diseases; N17.9 Acute kidney failure, unspecified; N18.9 Chronic kidney disease, unspecified; E87.1 Hypo-osmolality and hyponatremia; E87.2 Acidosis; D69.6 Thrombocytopenia, unspecified; R74.8 Abnormal levels of other serum enzymes; D72.829 Elevated white blood cell count, unspecified; R73.9 Hyperglycemia, unspecified; R33.9 Retention of urine, unspecified; K76.89 Other specified diseases of liver; E83.42 Hypomagnesemia; Z79.899 Other long term (current) drug therapy; E66.9 Obesity, unspecified; Z68.33 Body mass index [BMI] 33.0-33.9, adult
CPT/HCPCS: 36415; 51702; 70450; 70450-26; 70551; 70551-26; 74176; 74176-26; 76770; 76770-26; 80048; 80053; 80306; 80307; 81003; 82550; 82570; 83735; 84105; 84133; 84156; 84300; 84484; 85025; 85027; 86140; 92523-GN; 93005; 93010; 94760; 96125-GN; 96361; 96374; 97110-GO; 97110-GP; 97116-GP; 97162-GP; 97165-GO; 97530-GO; 99285; 99285-25; A9270-GY; J1200; J1630; J1644; J2060; J2405; J2550; J3475; J7030; J7042; J7050; Q3014; U0002

== ENCOUNTER 2020-07-08 20:50 | Emergency (ER) | payer BC ==
[2020-07-08 23:00] LABS: ACETAMINOPHEN 0 ug/mL (10-30)
--- NOTE | 2020-07-08 23:02 | EDM.PDOCBH ---
<Ulises Teague Chapincito - Last Filed: 07/09/20 06:39> ED HPI GENERAL MEDICAL PROBLEM - General Chief Complaint: Behavioral/Psych Stated Complaint: DETOX, SUICIDAL IDEATIONS Time Seen by Provider: 07/08/20 22:21 - Related Data Allergies Allergy/AdvReac Type Severity Reaction Status Date / Time No Known Allergies Allergy Verified 07/08/20 21:21 Home Meds: Home Meds Metoprolol Succinate [Toprol XL 50mg] 50 mg PO DAILY 11/02/19 [History] FLUoxetine HCl [Fluoxetine HCl] 20 mg PO DAILY #30 tablet 11/09/19 [Rx] Hydrochlorothiazide/Lisinopril [Lisinopril/HCTZ 20-12.5 MG] 1 tab PO DAILY 07/08/20 [History] Omeprazole 20 mg PO DAILY 07/08/20 [History] Simvastatin [Zocor] 40 mg PO DAILY 07/08/20 [History] amLODIPine [Norvasc] 5 mg PO DAILY 07/08/20 [History] #1 Interpretation EKG Date: 07/08/20 Time: 22:12 Rhythm: NSR Rate (Beats/Min): 69 [place]: 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 I agree with the history and physical exam as documented. The patient's CBC remarkable for mild leukocytosis of 12.17, but with 0% bandemia. He has mild thrombocytosis of 484,000, with the remainder of his CBC being unremarkable. His CMP is remarkable for an anion gap mildly elevated at 22.7, but with a bicarbonate normal at 21. His BUN is mildly elevated at 19, but with a Cr normal at 0.9, and the remainder of his CMP being unremarkable. His TSH is within normal limits at 0.969. His salicylate level is within normal limits at 1.2. His acetaminophen level is 0. His EtOH level is significantly elevated at 0.33. The patient has not yet provided a urine sample for the urine drug screen. I will order some IV fluid for the patient. The plan will be to keep the patient here in the ED overnight, then I will talk to him in the morning to see if he is still feeling suicidal. 07/09/20 06:26 I reevaluated the patient. He is sober and lucid. He states that when he told his that he was going to kill himself, he did not mean it wholeheartedly, and he states that he is not currently feeling depressed or suicidal. He states that there is no alcohol at home. He agreed to follow-up with his PCP, Dr. Moreno, this week. Departure - Departure Time of Disposition: 06:26 Disposition: Home, Self-Care 01 Condition: Good Clinical Impression: Alcohol intoxication, Episode of binge consumption of alcohol, Suicidal ideation - Discharge Information *PRESCRIPTION DRUG MONITORING PROGRAM REVIEWED*: Not Applicable *COPY OF PRESCRIPTION DRUG MONITORING REPORT IN PATIENT [facility]: Not Applicable Instructions: Suicidal Feelings: How to Help Yourself, Alcohol Intoxication Referrals: Thanh Moreno Jr, MD [Primary Care Provider] - Forms: ED Department Discharge Additional Instructions: You were seen in the emergency room after drinking an excessive amount of alcohol since Thursday, then threatening to kill yourself last night. Work-up in the ER included several blood tests and an ECG. Your alcohol level returned significantly elevated at 0.33. For reference, that is more than 4 times above the legal limit for driving. We recommend that you continue to abstain from drinking alcohol, and follow-up with your PCP, Dr. Thanh Moreno, this week. If any other problems, please do not hesitate to return to the ER. <Carri Adair - Last Filed: 07/20/20 21:38> ED HPI GENERAL MEDICAL PROBLEM - General Source of Information: Reports: Patient, Family History Limitations: Reports: No Limitations - History of Present Illness INITIAL COMMENTS - FREE TEXT/NARRATIVE: 55-year-old male presents to the emergency department with complaints of alcohol intoxication and suicidal thoughts. Patient is a recovering alcoholic and recently got out of inpatient alcohol treatment in November. The patient's states he has been sober that time. Patient's states that she left for the weekend and upon returning she discovered that he had started drinking on Thursday. Patient apparently consumed a gallon of hard liquor from Thursday night until today. The patient's states that she woke this morning and got ready for rastafari. When she got home she asked the patient if he was going to be going to his AA meeting when they got into an argument. The patient eventually left for his AA meeting at about this evening and the left and went to visit her daughter here in town. When she returned home she could tell that the patient had been drinking and initially he denied it however she discovered an empty 1.75 L bottle of hard alcohol outside the garage that was empty. She states that he has not been truthful about his drinking and she is concerned that he drank all this in the course of 2 hours. Patient does admit to drinking this weekend and states he did drink a gallon of hard liquor earlier however he states that the 1.75 L bottle he had only consumed part of it and dumped the rest out. When the questioned him he stated he was trying to kill himself and no longer had the will to live because he had failed in his sobriety. Question him to drink and he was not able to pinpoint any reason for this. He denies any increased stressors or life events contributing to this. Upon questioning the patient he initially states that he wants to and did intend to attempt to drink himself to as he feels like he failed in his sobriety and life is no longer worth living. The patient denies having a specific plan to kill himself. And upon further questioning he states that if he were allowed to go home he would not attempt to harm himself. He states he is disappointed in himself that he broke his sobriety. The patient's states that there are guns in the home however she does not know where they are and he admits that he does not not either. The patient did not confirm that he would be willing to go to alcohol treatment again however he was not adamantly against it either. Past medical history is pertinent for chronic alcoholism, hypertension, hypercholesteremia, and depression. Patient denies any history of smoking cigarettes or recreational drug use. Past Medical History HEENT History: Reports: Impaired Vision Cardiovascular History: Reports: High Cholesterol, Hypertension Gastrointestinal History: Reports: GERD Other Neuro History: Confusion Psychiatric History: Reports: Addiction, Depression, Suicidal Ideation - Past Surgical History GI Surgical History: Reports: Appendectomy Social & Family History - Family History Family Medical History: No Pertinent Family History - Tobacco Use Tobacco Use Status *Q: Never Tobacco User Second Hand Smoke Exposure: No - Caffeine Use Caffeine Use: Reports: Coffee - Recreational Drug Use Recreational Drug Use: No ED ROS GENERAL - Review of Systems Review Of Systems: See Below Constitutional: Reports: No Symptoms HEENT: Reports: No Symptoms Respiratory: Reports: No Symptoms Cardiovascular: Reports: No Symptoms Endocrine: Reports: No Symptoms GI/Abdominal: Reports: No Symptoms : Reports: No Symptoms Musculoskeletal: Reports: No Symptoms Skin: Reports: No Symptoms Neurological: Reports: No Symptoms Psychiatric: Reports: Depression, Suicidal Ideation Hematologic/Lymphatic: Reports: No Symptoms Immunologic: Reports: No Symptoms ED EXAM, BEHAVIORAL HEALTH - Physical Exam Exam: See Below Exam Limited By: No Limitations General Appearance: Alert, WD/WN, No Apparent Distress Ears: Normal External Exam, Hearing Grossly Normal Nose: Normal Inspection Throat/Mouth: Normal Inspection, Normal Lips, Normal Voice, No Airway Compromise Head: Atraumatic, Normocephalic Neck: Normal Inspection, Supple, Non-Tender, Full Range of Motion Respiratory/Chest: No Respiratory Distress, Lungs Clear, Normal Breath Sounds, No Accessory Muscle Use, Chest Non-Tender Cardiovascular: Normal Peripheral Pulses, Regular Rate, Rhythm, No Edema, No Murmur GI/Abdominal: Normal Bowel Sounds, Soft, Non-Tender, No Distention (Male) Exam: Deferred Rectal (Males) Exam: Deferred Back Exam: Normal Inspection, Full Range of Motion Extremities: Normal Inspection, Normal Range of Motion, Non-Tender, No Pedal Edema, Normal Capillary Refill Neurological: Alert, Normal Cognition, Oriented x 3, Other (tearful) Psychiatric: Alert, Oriented, Flat Affect, Tearful, Suicidal Thoughts Skin Exam: Warm, Dry, Intact, Normal color, No rash COURSE, BEHAVIORAL HEALTH COMP - Course Vital Signs: Last Vital Signs Temp 96.9 F 07/08/20 21:18 Pulse 74 07/08/20 21:18 Resp 16 07/08/20 21:18 BP 135/86 07/08/20 21:18 Pulse Ox 94 L 07/08/20 21:18 Orders, Labs, Meds: Laboratory Tests 07/08/20 07/08/20 07/08/20 Range/Units 22:25 22:25 22:25 WBC 12.17 H (4.23-9.07) K/mm3 RBC 5.74 (4.63-6.08) M/mm3 Hgb 16.0 D (13.7-17.5) gm/dl Hct 48.5 (40.1-51.0) % MCV 84.5 (79.0-92.2) fl MCH 27.9 (25.7-32.2) pg MCHC 33.0 (32.2-35.5) g/dl RDW Std Deviation 44.0 H (35.1-43.9) fL Plt Count 484 H D (163-337) K/mm3 MPV 7.8 L (9.4-12.3) fl Neutrophils % (Manual) 46 (40-60) % Band Neutrophils % 0 (0-10) % Lymphocytes % (Manual) 46 H (20-40) % Atypical Lymphs % 0 % Monocytes % (Manual) 5 (2-10) % Eosinophils % (Manual) 2 (0.8-7.0) % Basophils % (Manual) 1 (0.2-1.2) Platelet Estimate Increased RBC Morph Comment Normal Sodium 138 (136-145) mEq/L Potassium 3.7 (3.5-5.1) mEq/L Chloride 98 (98-107) mEq/L Carbon Dioxide 21 (21-32) mEq/L Anion Gap 22.7 H (5-15) BUN 19 H (7-18) mg/dL Creatinine 0.9 (0.7-1.3) mg/dL Est Cr Clr Drug Dosing 89.72 mL/min Estimated GFR (MDRD) > 60 (>60) mL/min BUN/Creatinine Ratio 21.1 H (14-18) Glucose 86 (74-106) mg/dL Calcium 8.7 (8.5-10.1) mg/dL Total Bilirubin 0.4 (0.2-1.0) mg/dL AST 26 (15-37) U/L ALT 36 (16-63) U/L Alkaline Phosphatase 99 (46-116) U/L Total Protein 8.2 (6.4-8.2) g/dl Albumin 4.0 (3.4-5.0) g/dl Globulin 4.2 gm/dL Albumin/Globulin Ratio 1.0 (1-2) TSH 3rd Generation 0.969 (0.358-3.74) uIU/mL Salicylates 1.2 L (2.8-20) mg/dL Acetaminophen 0 L (10-30) ug/mL Ethyl Alcohol 0.33 (0.00) gm% Medications Discontinued Medications Generic Name Dose Route Start Last Admin Trade Name Freq PRN Reason Stop Dose Admin Sodium Chloride 1,000 mls @ 150 mls/hr 07/08/20 23:45 07/08/20 23:45 Normal Saline IV 150 mls/hr ASDIRECTED [facility] Administration Departure - Departure Condition: Good - Discharge Information *PRESCRIPTION DRUG MONITORING PROGRAM REVIEWED*: Not Applicable *COPY OF PRESCRIPTION DRUG MONITORING REPORT IN PATIENT [place]: Not Applicable Sepsis Event Note (ED) - Evaluation Sepsis Screening Result: No Definite Risk
[2020-07-08] MEDS ORDERED: Sodium Chloride 0.9% 1,000 ML IV SCH (23:45)
== END 2020-07-09 06:37 | disposition home or self-care (01) ==
LOC: JD.ED 20:50
DX: F10.229 Alcohol dependence with intoxication, unspecified (principal); R45.851 Suicidal ideations; E78.00 Pure hypercholesterolemia, unspecified; I10 Essential (primary) hypertension; K21.9 Gastro-esophageal reflux disease without esophagitis; Y90.8 Blood alcohol level of 240 mg/100 ml or more; Z79.899 Other long term (current) drug therapy
CPT/HCPCS: 36415; 80053; 80143; 80179; 80307; 84443; 85007; 85027; 93005; 99285; J7030; 93010; 99284